=== PATIENT | male | born 1960 | race African-American/Black ===

== ENCOUNTER 2018-07-31 20:19 | Emergency (ER) | payer OTHER ==
[~2018-07-31] VITALS: Ht 182.9 cm; Wt 113.4 kg
[2018-07-31 21:30] LABS: ABSOLUTE NEUTROPHILS 4.1 thou/uL (1.4-8.2); EOSINOPHILS 1.1 % (0.0-3.0); HEMATOCRIT 29.2 % (42.0-52.0); HEMOGLOBIN 9.6 gm/dL (14.0-18.0); LYMPHOCYTES 11.3 % (24.0-44.0); MCH 28.4 pg (26.0-34.0); MCHC 32.8 g/dL (28.0-37.0); MCV 86.4 fL (80.0-100.0); MONOCYTES 10.7 % (1.0-8.0); PLATELET COUNT 214 thou/uL (150-400); POLYS 75.9 % (36.0-66.0); RBC 3.38 mil/uL (4.50-6.00); RDW 16.4 % (10.5-14.5); WBC 5.4 thou/uL (4.0-11.0)
[2018-07-31 21:36] LABS: CALCIUM 9.7 mg/dL (8.5-10.1); CREATININE 8.9 mg/dL (0.7-1.3)
[2018-07-31 21:42] LABS: ALBUMIN 2.8 g/dL (3.4-5.0); TOTAL BILIRUBIN 0.3 mg/dL (<0.1-1.0); TOTAL PROTEIN 6.7 g/dL (6.4-8.2)
[2018-07-31] MEDS ORDERED: DOXYCYCLINE 10100 MG PO (22:24)
[2018-07-31] MEDS ORDERED: ULTRAM 50MG TAB50 MG PO (22:24)
[2018-07-31] MEDS ORDERED: IBUPROFEN 600600 M1 PO (22:24)
[2018-07-31 23:01] VITALS: BP 170/84
== END 2018-07-31 23:10 | disposition home or self-care (01) ==
LOC: ER 20:19
PROVIDERS: Nurse Practitioner
DX: L02.612 Cutaneous abscess of left foot (principal); E11.621 Type 2 diabetes mellitus with foot ulcer

== ENCOUNTER 2018-08-12 06:56 | Inpatient (IN) | payer OTHER ==
[~2018-08-12] VITALS: Ht 182.9 cm; Wt 115.7 kg
[~2018-08-12 06:56] MED LIST: DOXYCYCLINE 10100 MG PO; IBUPROFEN 600600 M1 PO; ULTRAM 50MG TAB50 MG PO
[2018-08-12] MEDS ORDERED: IBUPROFEN 800800 M1 PO (12:25)
[2018-08-12] MEDS ORDERED: COUMADIN 1MG TAB1 M1 PO (12:26)
[2018-08-12] MEDS ORDERED: LISINOPRIL5 MG PO (12:26)
[2018-08-12] MEDS ORDERED: TRAMADOL 50 MG50 MG PO ×2 (12:27)
[2018-08-12] MEDS ORDERED: HYDRALAZINE 2525 MG PO (12:27)
[2018-08-12] MEDS ORDERED: DOXYCYCLINE 10100 MG PO (12:28)
[2018-08-12 14:28] LABS: HEMATOCRIT 28.4 % (42.0-52.0); HEMOGLOBIN 9.3 gm/dL (14.0-18.0); MCH 27.9 pg (26.0-34.0); MCHC 32.8 g/dL (28.0-37.0); PLATELET COUNT 272 thou/uL (150-400); RBC 3.34 mil/uL (4.50-6.00); RDW 16.3 % (10.5-14.5); WBC 10.9 thou/uL (4.0-11.0)
[2018-08-12 14:40] LABS: ABSOLUTE NEUTROPHILS 8.1 thou/uL (1.4-8.2); INR 1.6; PROTIME 17.1 Seconds (9.3-11.4)
[2018-08-12 14:41] LABS: ANISOCYTOSIS 1+
[2018-08-12 14:42] LABS: ALBUMIN 2.5 g/dL (3.4-5.0); CALCIUM 10.9 mg/dL (8.5-10.1); CREATININE 6.7 mg/dL (0.7-1.3); MAGNESIUM 1.9 mg/dL (1.8-2.4); POTASSIUM 4.2 mmol/L (3.5-5.1); TOTAL BILIRUBIN 0.4 mg/dL (<0.1-1.0)
[2018-08-12 16:00] VITALS: BP 178/97
--- NOTE | 2018-08-12 18:45 | NUR ---
PT ARRIVED TO ROOM DIRECT ADMISSION FROM WOUND CLINIC AT 11:35. ADMISSION ASSESSMENT COMPLETED. PT A&O,X4, ANXIETY NOTED. EXPRESSES CONCERNS ABOUT MRI, PROVIDER ORDERED PO MEDS TO BE GIVEN BEFORE. GIVEN ORDERED. PT C/O LEFT LEG PAIN, PAIN MEDS GIVEN ORDERED. LEFT TOE WOUND NOTED. ACHS, NO INSULIN COVERAGE NEEDED THIS EVENING. DIALYSIS PT, AZALEA FISTULA. HIGH FALL RISK PRECAUTIONS IN PLACE. CALL LIGHT WITHIN REACH. VSS. PT IN STABLE CONDITION. END OF SHIFT.
[2018-08-12 20:30] VITALS: BP 163/98
[2018-08-13] VITALS (8 sets, daily range): BP systolic 155–209; BP diastolic 78–103
[2018-08-13 05:09] LABS: HEMATOCRIT 27.4 % (42.0-52.0); HEMOGLOBIN 8.8 gm/dL (14.0-18.0); MCH 27.8 pg (26.0-34.0); MCHC 32.2 g/dL (28.0-37.0); MCV 86.5 fL (80.0-100.0); PLATELET COUNT 284 thou/uL (150-400); RBC 3.16 mil/uL (4.50-6.00); RDW 16.3 % (10.5-14.5); WBC 9.4 thou/uL (4.0-11.0)
[2018-08-13 05:18] LABS: ANION GAP 11 mmol/L (7-16); BUN 59 mg/dL (7-18); CALCIUM 10.5 mg/dL (8.5-10.1); CHLORIDE 102 mmol/L (98-107); CHOLESTEROL 105 mg/dL (<200); CO2 24 mmol/L (21-32); CREATININE 7.2 mg/dL (0.7-1.3); GLUCOSE 92 mg/dL (74-106); HDL CHOLESTEROL 33 mg/dL (>40); LDL CHOLESTEROL 64 mg/dL (<100); MAGNESIUM 1.8 mg/dL (1.8-2.4); POTASSIUM 4.3 mmol/L (3.5-5.1); SODIUM 137 mmol/L (136-145); TC:HDL 3.2 Ratio (Not establshd); TRIGLYCERIDE 44 mg/dL (<150); VLDL 9 mg/dL (<40)
[2018-08-13 05:21] LABS: SERUM ASSESSMENT Clear
--- NOTE | 2018-08-13 05:59 | NUR ---
PT WITH LLE WOUND. SUSANA. TRAMADOL GIVEN FOR PAIN. PT GETS UP USING WALKER. OLIGURIC. AFEBRILE. CALM THRO NIGHT.APPEARS DROWSY THIS AM. PLANS FOR DIALYSIS TODAY.
[2018-08-13 06:31] LABS: ABSOLUTE NEUTROPHILS 6.6 thou/uL (1.4-8.2)
[2018-08-13 06:32] LABS: ANISOCYTOSIS 1+; PLATELET ESTIMATE NORMAL
[2018-08-13 06:33] LABS: BURR CELLS FEW; POLYCHROMASIA 1+
--- NOTE | 2018-08-13 12:07 | NUR ---
Case opened to follow for dc planning. Fisher Oyster visited with the pt at bedside this morning. He is drowsy and was falling asleep during our conversation. The pt reports that he lives with his Swati in a first floor apt with no steps. He dialyzes at the [facility] on [address] MWF. He reports that he either drives himself or his takes him. He uses a rwalker for gait and has been going to the wound clinic here for the past few weeks. He was admitted directly from the clinic with lt foot diabetic ulcer. The pt is disabled and has medicare as his primary ins and [employer] secondary through his 's employer. He denies any previous hh services. Unable to discuss possible dc planning needs as the pt kept falling asleep. Procedure planned in IR today. Dc planning needs are uncertain at this time and if surgical intervention is indicated. Will follow along for possible HH, Infusion, SNF or rehab referrals if needed.
--- NOTE | 2018-08-13 15:41 | NUR ---
PT ARRIVED TO CV HOLDING FROM IR AT 1510. PT WAS VERY RESTLESS IN IR SO SHEATH NOT REMOVED. BP WAS HIGH. ON ARRIVAL TO CV IT WAS 164/88. HYDRALAZINE 20 MG GIVEN AT 1517. PT HAVING SPASMS RT LEG AND C/O RT LEG ITCHING. NOW GIVING BENADRYL 25 MG IV PER LORI VELIZ.
--- NOTE | 2018-08-13 16:49 | NUR ---
PT BACK FROM IR. DRESSING TO RIGHT GROIN CDI. SITE SOFT. PT IN DIALYSIS AT THIS TIME. PT CAN RESUME DIET. WILL CONT. TO MONITOR.
[2018-08-14 00:03] VITALS: BP 157/71
--- NOTE | 2018-08-14 04:28 | NUR ---
ASSUMED CARE AT 1900, ASSESSMENT COMPLETED. PT IN DIALYSIS AT START OF SHIFT, MAINTAINED POST-ANGIO PRECAUTIONS UNTIL 2014. PT C/O MODERATE/HIGH PAIN IN LEFT FOOT WELL RESTLESS LEG AND FEELING ANXIOUS. DENIES SOB OR NAUSEA. [facility]E [facility] DIALYSIS FINISHED UP. GIVEN TRAMADOL AND ATIVAN OVERNIGHT. HAD PT SIT IN CHAIR WHILE CHANGING BED SHEETS, PT REPORTED PAIN WORSE AFTER BEING UP AND MOVING AROUND. EDUCATED PT ABOUT CALLING FOR HELP IF HE NEEDS TO GET UP, MADE SURE BED ALARM WAS SET AND FREQ ROUNDS. NO OTHER CONCERNS, WILL CONTINUE TO MONITOR.
[2018-08-14 04:46] VITALS: BP 166/87
[2018-08-14 08:27] VITALS: BP 169/83
[2018-08-14 09:06] LABS: HEP B SURFACE Ab(ANTI-HBS Reactive (()); HEPATITIS B SURFACE AG Negative (Negative)
--- NOTE | 2018-08-14 09:42 | HC ---
[facility] [place] [address] CONSULTATION Name: ROWENA SOSA Room #: 426-P [facility] IN M.R.#: [id number] Admission: 08/12/18 ������������������ Attend Phys: Carlos Queen MD Discharge: ������������������ Date of : 62 Report #: [id number] THIS REPORT FOR: //name// CC: FAM unknown Carlos Queen NO PCP Greg Amador DATE OF SERVICE: 08/13/2018 INFECTIOUS DISEASE CONSULTATION HISTORY OF PRESENT ILLNESS: A 57-year-old man, with diabetes mellitus for some 20 years, on hemodialysis 3 times weekly through left arm AV fistula, is admitted from Dr. Greg Amador' office with left foot ulceration and MRI compatible with possible osteomyelitis, left fifth metatarsal, though technically, this was compromised by motion. PAST MEDICAL HISTORY: Diabetes mellitus. Previous right fifth toe amputation. End-stage renal disease, on hemodialysis 3 times weekly. Previous cerebrovascular accident. Heart attack in 2014. Coronary artery stenting. Dyslipidemia. Hypertension. Peripheral vascular disease. DRUG ALLERGIES: None listed. MEDICATIONS: The patient is currently on treatment with vancomycin being dosed at 500 mg post hemodialysis 3 times weekly after loading dose. The patient is also on lisinopril, hydralazine, docusate, insulin lispro, tramadol, p.r.n. glucose and glucagon, p.r.n. zolpidem, p.r.n. nitroglycerin and p.r.n. ondansetron. SOCIAL HISTORY: See H and P, old records. FAMILY HISTORY: See H and P, old records. REVIEW OF SYSTEMS: See H and P and as above. PHYSICAL EXAMINATION: GENERAL: Well-developed, chronically ill-appearing man. Afebrile since admission with following vital signs. VITAL SIGNS: Temperature 98.9, pulse 94, respirations 16, BP 157/84. Height 6 feet, weight 255 pounds. HEENMT: Pupils reactive. Mouth edentulous. NECK: Supple. LUNGS: Clear. HEART: S1, S2. No gallops. [facility] [address] [address] CONSULTATION Name: ROWENA SOSA Room #: 426-P ADM IN M.R.#: [id number] Admission: 08/12/18 ������������������ Attend Phys: Carlos Queen MD Discharge: ������������������ Date of : 62 Report #: [id number] ABDOMEN: Soft, no masses or megaly. EXTREMITIES: Left arm AV shunt. Status post remote amputation, right fifth toe. Ulceration of the distal left fifth metatarsal area. No peripheral pulses palpable. LABORATORY DATA: Sodium 135, BUN 59, creatinine 7.2, calcium 10.5, albumin 2.5 g/dL, CRP 103.2 ng/L. Protime 17.1. WBC 9.4, hemoglobin 8.8, platelets 284,000. Sedimentation rate pending. MICROBIOLOGY DATA: Previous cultures, left foot ulceration revealed Enterobacter cloacae sensitive to quinolones, meropenem, tetracycline and aminoglycosides. RADIOLOGY EVALUATION: X-ray of the foot revealed no significant abnormalities other than calcification of the arteries, obviously not normal. MRI of the foot revealed this to be a limited study due to the patient's motion, subtle T1 hypointensity along plantar surface, left fifth metatarsal head concerning early osteomyelitis. Ultrasound of lower extremities revealed evidence of peripheral vascular disease. ASSESSMENT: 1. Possible left fifth metatarsal osteomyelitis. 2. Peripheral vascular disease. 3. Remote amputation, right fifth toe. 4. Diabetes mellitus. 5. End-stage renal disease, on hemodialysis 3 times weekly. 6. Anemia of chronic disease. 7. Hypoalbuminemia. 8. Coronary artery disease, previous myocardial infarction. 9. Previous cerebrovascular accident. SUGGESTIONS: Recommend we will review MRI to assess whether we are dealing with osteomyelitis or not. The CRP is elevated and we need an explanation for that. I suspect the only source of infection is the left foot. Continue vancomycin. Since an Enterobacter is isolated previously, add meropenem 500 IV every 12 hours. Proceed with angiogram. Dr. Queen, thank you for requesting my suggestions. ��������������������������������������������� <ELECTRONICALLY SIGNED> ���������������������������������������� By: Jt Wood MD ��������������������������������������������� 08/14/18 0942 0930 1939 Jt Wood MD /nt
[2018-08-14 10:42] LABS: HEMATOCRIT 28.4 % (42.0-52.0); HEMOGLOBIN 9.2 gm/dL (14.0-18.0); MCH 27.8 pg (26.0-34.0); MCHC 32.3 g/dL (28.0-37.0); MCV 86.1 fL (80.0-100.0); RBC 3.3 mil/uL (4.50-6.00); RDW 16.3 % (10.5-14.5); WBC 10.7 thou/uL (4.0-11.0)
[2018-08-14 10:46] LABS: CALCIUM 9.9 mg/dL (8.5-10.1); POTASSIUM 4.4 mmol/L (3.5-5.1)
[2018-08-14 10:47] LABS: CREATININE 5.7 mg/dL (0.7-1.3)
[2018-08-14 10:49] LABS: INR 1.4; PROTIME 14.1 Seconds (9.3-11.4)
--- NOTE | 2018-08-14 11:08 | NUR ---
Assumed pt care at 7am.Pt in bed moaning for left foot pain rated 10/10.Pain med too soon to give.Dr Ruiz notified,he rounded on pt and order noted.Pain med given with sips of water and pt fell asleep few minutes after given med. Dr Davis here,order noted.Pt left for surgery per bed at 1100 after given updates to rn cardiac rehab.
[2018-08-14 19:44] VITALS: BP 169/82
[2018-08-14 22:15] LABS: URINE BILIRUBIN NEGATIVE (Negative); URINE BLOOD NEGATIVE (Negative); URINE CLARITY CLEAR; URINE COLOR YELLOW; URINE GLUCOSE-RANDOM* TRACE (Negative); URINE KETONES NEGATIVE (Negative); URINE LEUKOCYTES-REFLEX NEGATIVE (Negative); URINE NITRITE-REFLEX NEGATIVE (Negative); URINE PROTEIN (DIPSTICK) 3+ (Negative); URINE SPECIFIC GRAVITY 1.015 (1.005-1.035); URINE UROBILINOGEN 0.2 E.U./dl (0.2-1.0)
[2018-08-14 22:39] LABS: BACTERIA-REFLEX 1-9 Few /HPF (None Seen); CRYSTALS None Seen /LPF (None Seen); HYALINE CASTS 0-3 Few /LPF (None Seen); MUCUS 4-6 Moderate strn/LPF (None Seen); SQUAMOUS 0-3 Few /LPF (0-3); URINE RBC 0-2 Rare /HPF (0-2); URINE WBC-REFLEX 0-5 Rare /HPF (0-5)
[2018-08-15 00:06] VITALS: BP 164/71
--- NOTE | 2018-08-15 04:43 | NUR ---
ASSUMED CARE AT 1900, ASSESSMENT COMPLETED. PT REPORTED VERY LITTLE PAIN IN FOOT SINCE PARTIAL AMPUTATION; DRESSING TO FOOT IS C/D/I, NO SIGNS OF BLEEDING. DENIES SOB OR NAUSEA; ASKED TO WEAR O2 WHILE ASLEEP IT HELPED HIM SLEEP BETTER. BLOOD SUGAR STABLE, NO COVERAGE NEEDED. PULLED BOTH IV'S OUT WHILE ASLEEP, NEW IV STARTED IN RIGHT AC. PLAN FOR DIALYSIS TODAY. NO OTHER CONCERNS, WILL CONTINUE TO MONITOR.
[2018-08-15 05:59] VITALS: BP 159/77
--- NOTE | 2018-08-15 08:47 | HC ---
[facility] [address] CONSULTATION Name: ROWENA SOSA Room #: 426-P ADM IN M.R.#: [id number] Admission: 08/12/18 ������������������ Attend Phys: Carlos Queen MD Discharge: ������������������ Date of : 62 Report #: [id number] THIS REPORT FOR: //name// CC: FAM unknown Carlos Queen NO PCP Greg Amador DATE OF SERVICE: 08/13/2018 PERSONAL PHYSICIAN: Not on staff. CHIEF COMPLAINT: Left foot ulcer. HISTORY OF PRESENT ILLNESS: This is a 57-year-old black male who actually presented to my clinic two days ago for evaluation of a chronic ulcer on the left lateral foot. The patient was noted to have cellulitis at that time as well as possible abscess formation over the area of the fifth metatarsal head. The patient was admitted to the hospital that day for IV antibiotics and surgical evaluation. While in the clinic, it was noted the patient had a QuantaFlo screening exam that showed concern for severe peripheral arterial disease and the patient is currently awaiting an angiography for evaluation of this. The patient states the wound itself has been present for several weeks. The patient was actually seen in the Emergency Department on 07/31/2018. At that time, had an I and D of superficial abscess, was started on oral antibiotics. The patient was scheduled to see me in the office shortly thereafter; however, he missed that appointment. The patient once again then presented to my office yesterday for evaluation and was admitted to the hospital. The patient states he does have pain associated with the foot, which he describes as sharp, stabbing pain, worse with ambulation, better with elevation and rest. The patient denies radiation of the pain. PAST MEDICAL HISTORY: Significant for diabetes, end-stage renal disease, coronary artery disease with previous stenting, history of previous CVA, hypertension, hyperlipidemia. PAST SURGICAL HISTORY: The patient also had previous history of a right fifth toe amputation. CURRENT MEDICATIONS: Multiple, I reviewed the patient's medication list. DRUG ALLERGIES: None. SOCIAL HISTORY: The patient smokes cigarettes occasionally as well as smokes e-cigarettes. Drinks alcohol socially. Resides at home. [address] [address] CONSULTATION Name: ROWENA SOSA Room #: 426-P [facility] IN [facility]#: [id number] Admission: 08/12/18 ������������������ Attend Phys: Carlos Queen MD Discharge: ������������������ Date of : 62 Report #: [id number] FAMILY HISTORY: Not pertinent to current medical condition. REVIEW OF SYSTEMS: CONSTITUTIONAL: The patient denies fevers or chills. NEUROLOGIC: The patient denies numbness, tingling in arms or legs, but does complain of generalized neuropathy in his feet. EYES: No complaints. ENT: No complaints. CARDIAC: The patient denies chest pain, palpitations or peripheral edema. RESPIRATORY: The patient denies shortness breath, cough or wheezes. GASTROINTESTINAL: The patient denies nausea, vomiting or abdominal pain. GENITOURINARY: The patient denies urgency or frequency. MUSCULOSKELETAL: No complaints. SKIN: The patient has a chronic ulcer on the left fifth metatarsal head as well as a dry ulceration to the left second toe. PHYSICAL EXAMINATION: VITAL SIGNS: Temperature 36.5, pulse 104, respirations 18, blood pressure 157/71. GENERAL: This is an alert and oriented x3, pleasant black male who is in mild distress secondary to pain. HEENT: Normocephalic, atraumatic. Mucous membranes are dry. Pupils are round. Sclerae white. NECK: Supple, nontender, without JVD. LUNGS: Clear. HEART: Regular. ABDOMEN: Soft, otherwise nontender. EXTREMITIES: The patient moves all extremities without difficulty. The patient has an AV fistula in the left upper extremity. Distal pulses are intact on the upper extremities. Evaluation of lower extremities reveals faint dorsalis pedis pulses; however, the feet are warm. Evaluation of left foot reveals a chronic ulcer over the lateral aspect of the fifth metatarsal head, which is exquisitely tender. There is swelling noted around the area and some fluctuance. There is also small superficial abrasion to the left lateral fifth toe and a chronic appearing ulcer over the left second toe on the distal tip on the lateral aspect of the fifth metatarsal head. The ulceration has moderate amount of serosanguineous drainage with moderate odor. NEUROLOGIC: Cranial nerves 2-12 are grossly intact. Motor and sensory grossly intact. LABORATORY VALUES: White count 10.9, hemoglobin 9.3. Sed rate 61. Arterial Doppler shows concern for arterial disease, hence the pending angiogram. Electrolytes within normal limits. BUN 59, creatinine 7.2. C-reactive protein was 103. Albumin is 2.5. IMPRESSION: [facility] [address] [place] [address] CONSULTATION Name: ROWENA SOSA Room #: 426-P ADM IN M.R.#: [id number] Admission: 08/12/18 ������������������ Attend Phys: Carlos Queen MD Discharge: ������������������ Date of : 62 Report #: [id number] 1. Chronic ulcer, left lateral fifth metatarsal head, concern for underlying abscess and osteomyelitis. 2. Peripheral arterial disease. 3. End-stage renal disease, on hemodialysis. 4. Coronary artery disease, status post coronary artery stenting. 5. History of cerebrovascular accident. 6. Diabetes mellitus type 2. 7. Protein-calorie malnutrition - severe with an albumin of 2.5. PLAN: At this time, Podiatry has been consulted for I and D of the left fifth metatarsal ulceration and possible amputation of fifth ray amputation if MRI shows concern for underlying osteomyelitis. MRI is pending at this time. Angiography is scheduled for later this afternoon. I will continue to maximize the patient's oral supplementation of protein for healing as per his renal diet. We will continue all other medications including IV antibiotics. Local wound care will be started with Betadine at this point in time, pending the surgical evaluation and treatment. We will continue to follow the patient. I appreciate the ability to consult. ��������������������������������������������� <ELECTRONICALLY SIGNED> ���������������������������������������� By: Greg Amador MD ��������������������������������������������� 08/15/18 0847 0827 1943 Greg Amador MD /nt
[2018-08-15 11:21] LABS: HEMATOCRIT 31.1 % (42.0-52.0); MCH 27.7 pg (26.0-34.0); MCHC 32.3 g/dL (28.0-37.0); MCV 85.9 fL (80.0-100.0); RBC 3.62 mil/uL (4.50-6.00); RDW 16.5 % (10.5-14.5); WBC 9.2 thou/uL (4.0-11.0)
--- NOTE | 2018-08-15 11:37 | NUR ---
Assessment completed.vss.Pt c/o of left foot rated 8/10.2 lortab po given with partial relief.Dr Amador and Sara here,order noted.Wound vac placed to left foot today bu wound care nurse.Pt in room having hemodialysis.Will continue to monitor.
[2018-08-15 11:39] LABS: % SATURATION 13 % (20-39); IRON 18 ug/dL (65-175); TIBC 140 ug/dL (250-450)
[2018-08-15 11:47] LABS: ALBUMIN 2.4 g/dL (3.4-5.0); CALCIUM 10.4 mg/dL (8.5-10.1); CREATININE 7.1 mg/dL (0.7-1.3); POTASSIUM 4.6 mmol/L (3.5-5.1); TOTAL BILIRUBIN 0.5 mg/dL (<0.1-1.0); TOTAL PROTEIN 6.8 g/dL (6.4-8.2)
--- NOTE | 2018-08-15 13:49 | NUR ---
WOUND CARE CONSULT; ROUNDING TODAY WITH DR MANAS LEON. THE LEFT LAT TOES WERE AMPUTATED. A CLEAN WOUND BED WAS NOTED WITH NO S/S OF INFECTION. RECOMMENDATION; VAC THERAPY TO BEGIN TODAY. DISCUSSED WITH STAFF
--- NOTE | 2018-08-15 14:20 | NUR ---
PT IS INTERESTED IN [facility] FOR HH FOLLOW-UP. PT WILL HAVE A WOUND VAC AT HOME. FOLLOWING.
[2018-08-15 16:00] VITALS: BP 143/70
[2018-08-15 21:09] VITALS: BP 142/95
--- NOTE | 2018-08-16 04:04 | NUR ---
PT REQUESTED FOR AND RECEIVED HYDROCODNE AND AMBIEN AT .MEDS EFFECTIVE.BG AT HS STABLE,NO TX NEEDED.WOUND VAC IN PLACE ON HIS FOOT.PT ON 2L/NC PER PT'S REQUEST TO HELP HIM SLEEP.PT CONT ON IV ABX.DRSG ON HIS FOOT C/D/I.PT GOT A BED BATH FROM HIS AT .PT ABLE TO MAKE HIS NEEDS KNOWN.FALL PRECAUTIONS IN PLACE,CALL LIGHT WITHIN REACH.
[2018-08-16 05:11] VITALS: BP 184/89
[2018-08-16 08:38] VITALS: BP 158/82
--- NOTE | 2018-08-16 08:47 | NUR ---
ASSESMENT COMPLETED. VSS. A/O. PAIN MANAGED BY MEDS ORDERED. NO NOTED SOA. NO NV. PT RESTING IN BED. PT STATED NOT HAVIGN A BM SINCE SATURDAY. BED ALARM ON. WILL CONT. TO MONITOR.
[2018-08-16 16:40] VITALS: BP 163/86
--- NOTE | 2018-08-16 18:28 | NUR ---
MIRALAX AND MAG CITRATE GIVEN- WAITING FOR RESULTS. NO CHANGE SINCE AM ASSESMENT.
[2018-08-16 22:38] VITALS: BP 165/78
[2018-08-17 05:34] LABS: HEMATOCRIT 27.3 % (42.0-52.0); HEMOGLOBIN 8.8 gm/dL (14.0-18.0); MCH 27.9 pg (26.0-34.0); MCHC 32.4 g/dL (28.0-37.0); MCV 86.1 fL (80.0-100.0); RBC 3.17 mil/uL (4.50-6.00); RDW 16.1 % (10.5-14.5); WBC 7.3 thou/uL (4.0-11.0)
[2018-08-17 05:39] LABS: ALBUMIN 2.4 g/dL (3.4-5.0); PHOSPHORUS 5.6 mg/dL (2.5-4.9); POTASSIUM 4.6 mmol/L (3.5-5.1)
[2018-08-17 05:56] VITALS: BP 154/68
--- NOTE | 2018-08-17 06:01 | NUR ---
PT ALERT AND ORIENTED. SLIGHTLY FORGETFUL. S/P L 5TH TOE AMPUTATIOPN WITH WOUND VAC IN PLACE. NO S/SX OF REDNESS OR SWELLING ON THE ARE AROUND THE DRSG. PT GETS TO BSC WITH SBA. PAIN MANGED BY ORAL MEDS. PLACED ON 02/2L/NC FOR COMFORT THRO THE NIGHT. FALL PREC IN PLACE. WILL CONTINUE WITH POC TILL EOS.
[2018-08-17 07:37] VITALS: BP 152/84
--- NOTE | 2018-08-17 08:45 | NUR ---
PATIENT CARE WAS ASSUMED AT 0715.PATIENT IS ALERT AND ORIENTED X4.PATIENT IS EATING BREAKFAST ON THE SIDE OF THE BED.PATIENT HAS WOUND WOUND VAC HOOKED UP WITH PROTECTED WRAPPINGS.PATIENT STATES THAT FOOT IS TENDER WHEN TOUCH TO ROUGHLY, OTHER THATN THAT HE HAS NO COMPLAINS OF PAIN AT THIS TIME.PATIENT HAS IV SALINE LOCKED.CALL LIGHT, PHONE, AND PERSONAL BELONGINGS ARE IN PLACE.
[2018-08-17 16:25] VITALS: BP 147/85
[2018-08-17 19:32] VITALS: BP 148/81
--- NOTE | 2018-08-18 03:30 | NUR ---
ASSUMED PT CARE 1899. PT ALERT AND ORIENTED. REASSESSMENT COMPLETE. VSS. IV DRESSING C/D/I, NO SIGNS OF INFILTRATION. PT DENIES PAIN, DENIES N/V. PT CALL LIGHT AND PERSONAL BELONONGS WITHIN REACH. WILL CONTINUE POC UNTIL EOS.
[2018-08-18 04:05] VITALS: BP 164/78
[2018-08-18 05:59] LABS: HEMATOCRIT 27.3 % (42.0-52.0); HEMOGLOBIN 8.9 gm/dL (14.0-18.0); MCH 27.9 pg (26.0-34.0); MCHC 32.7 g/dL (28.0-37.0); MCV 85.3 fL (80.0-100.0); RBC 3.2 mil/uL (4.50-6.00); RDW 16.1 % (10.5-14.5); WBC 7.9 thou/uL (4.0-11.0)
[2018-08-18 06:18] LABS: ALBUMIN 2.2 g/dL (3.4-5.0); CALCIUM 9.7 mg/dL (8.5-10.1); PHOSPHORUS 5.2 mg/dL (2.5-4.9); POTASSIUM 4.9 mmol/L (3.5-5.1)
[2018-08-18 06:19] LABS: CREATININE 8.1 mg/dL (0.7-1.3)
[2018-08-18 08:00] VITALS: BP 160/74
--- NOTE | 2018-08-18 11:47 | NUR ---
ASSESMENT COMPLETED. VSS. A/O/VERY ANXIOUS. NO NOTED SOA. NO NV. PT WANTS TO STEP OF HIS ROOM FOR "FRESH AIR". PT DIALYZING AT THIS TIME. WILL CONT. TO MONITOR.
--- NOTE | 2018-08-18 12:27 | HC ---
[facility] [place] [address] CONSULTATION Name: ORWENA SOSA Room #: 426-P ADM IN M.R.#: [id number] Admission: 08/12/18 ������������������ Attend Phys: Carlos Queen MD Discharge: ������������������ Date of : 62 Report #: [id number] THIS REPORT FOR: //name// CC: FAM unknown Carlos Queen NO PCP Greg Amador DATE OF SERVICE: 08/12/2018 ATTENDING PHYSICIAN: Dr. Queen. REASON FOR CONSULTATION: End-stage renal disease. HISTORY OF PRESENT ILLNESS: This 57-year-old gentleman, chronic dialysis patient at [facility], has a worsening left foot infection, was admitted for IV antibiotics, and is in need of dialysis tomorrow. PAST MEDICAL HISTORY: He has coronary artery disease, had a previous coronary stent at [facility]. He has had a previous CVA with little in the way of residual. He is having ongoing left diabetic foot ulcer, which was debrided in the Emergency Room here a couple of weeks ago, but subsequently worsened. He saw the wound clinic today, Dr. Amador, who admitted him for IV antibiotics. Diabetes, end-stage renal disease, peripheral neuropathy, history of CVA, hypertension. HOME MEDICATIONS: Including Coumadin, lisinopril 5 mg daily, hydralazine 50 mg t.i.d., tramadol and he has doxycycline listed as well. FAMILY HISTORY: Strongly positive for diabetes as well as end-stage renal disease. SOCIAL HISTORY: He is a longstanding cigarette smoker, currently smoking e-cigarettes. Denies drugs or alcohol. REVIEW OF SYSTEMS: GENERAL: He has been feeling reasonably well. EYES: Vision reasonably good. ENT: Hearing okay, swallows okay. Denies mouth ulcers. ENDOCRINE: Positive for diabetes. RESPIRATORY: No shortness of air, pleuritic pain, hemoptysis, or cough. CARDIAC: No chest pain or palpitations. GASTROINTESTINAL: No nausea, vomiting or diarrhea. GENITOURINARY: No dysuria, hematuria or stones. NEUROLOGIC: He does have some numbness and tingling in his feet. [facility] [address] [place] [address] CONSULTATION Name: ROWENA SOSA Room #: 426-P [facility] IN ..#: [id number] Admission: 08/12/18 ������������������ Attend Phys: Carlos Queen MD Discharge: ������������������ Date of : 62 Report #: [id number] PHYSICAL EXAMINATION: GENERAL: This is a reasonably well-appearing gentleman, in no acute distress. SKIN: Unremarkable. SKELETAL: Rather obese. HEENT: Extraocular movements are full. Vision is intact. Hearing is intact. Mucous membranes moist. Tongue, buccal mucosa benign. NECK: Supple, no carotid bruits. CHEST: Clear to auscultation. HEART: Regular. ABDOMEN: Soft and nontender. EXTREMITIES: Show no edema. He has dressing over the left foot and the second toe apparently has a wound and some gangrene. ASSESSMENT AND PLAN: 1. End-stage renal disease, on dialysis. We will dialyze tomorrow. 2. Left diabetic foot wound. 3. Diabetes mellitus with neuropathy. 4. Hypertension. 5. Previous cerebrovascular accident with little residual. 6. Ongoing tobacco abuse. 7. Coronary artery disease, status post coronary artery stent. ��������������������������������������������� <ELECTRONICALLY SIGNED> ���������������������������������������� By: Joshua Puga MD ��������������������������������������������� 08/18/18 1227 1814 0949 Joshua Puga MD /nt
--- NOTE | 2018-08-18 13:12 | NUR ---
Assess due to pt with left foot wound with bone necrosis, s/p toe/metatarsal amputation and need for wound vac. Hx DM, and ESRD with need for dialysis. Wts are stable. Pt noted to have requested regular diet and physician has ordered. BG under good control. Low nutrition risk
[2018-08-18] MEDS ORDERED: MEROPENEM500 MG IV (14:10)
--- NOTE | 2018-08-18 16:05 | PATH ---
[facility] [address] [place] [address] PATHOLOGY RPT PROCEDURE Name: BALJIT SULLIVAN Room #: 426-P ADM IN M.R.#: [id number] ������������������ Admission: 08/12/18 ������������������ Date of : 62 Discharge: Report #: [id number] Path Case #: [id number] [facility] Accession Number: [id number] . 01 Material submitted: . PART A: foot - LEFT FOOT ULCER. Modifiers: left PART B: toe - LEFT FIFTH METATARSAL. Modifiers: left, fifth . 01 Clinical history: . Gangrene, osteomyelitis. . 02 Diagnosis: A. Left foot ulcer, debridement: - Gangrenous necrosis associated with ulceration and marked acute inflammation of the skin and subcutaneous tissue. . B. Toe, left fifth metatarsal, transmetatarsal amputation: - Marked acute inflammation extending into bone, compatible with acute and chronic osteomyelitis. - Bone at margins viable and unremarkable (separate fragments). . (IUV:mml; 08/18/2018) QLM/08/18/2018 . 02 Electronically signed: . Maureen Castorena MD, Pathologist NPI- [id number] . 01 Gross description: . A. Received in formalin labeled "Baljit Sullivan, left foot ulcer" is a portion of curry-white skin and underlying soft tissue measuring 3.2 x 2.7 x 1.5 cm. The skin surface displays a alvarado-curry ulcerated lesion measuring 2.3 x 2.1 x 1.5 cm, and extends into the underlying soft tissue. Fire Sprinkler Service Technician section is submitted in cassette A1. . B. Received in formalin labeled "Baljit Sullivan, left fifth metatarsal" is a toe amputation specimen, separate portion of detached skin and underlying soft tissue, and two separate portions of curry-white bone, measuring in aggregate 8.6 x 4.5 x 2.0 cm and ranging from 2.3-5.1 cm in greatest dimension. The specimen is not inked due to its fragmented nature. The main toe portion displays a toenail measuring 0.7 x 0.7 x 0.3 cm. An ulcerated lesion is present on the skin of this portion, measuring 1.1 x 1.1 x 0.2 cm. A second pink-curry area absent of skin is also identified measuring 1.2 x 0.8 x 0.1 cm. These areas are located 0.6 and 0.1 cm to the closest skin and soft tissue margins respectively. Upon sectioning, the lesion and area without skin abut but do not grossly involve the underlying bone, and are contiguous and edematous below the [address] [address] PATHOLOGY RPT PROCEDURE Name: BALJIT SULLIVAN Room #: 426-P ADM IN M.R.#: [id number] ������������������ Admission: 08/12/18 ������������������ Date of : 62 Discharge: Report #: [id number] Path Case #: [id number] skin surface. The separate portions of bone have smooth surgical margins, with one aspect displaying a convex cartilaginous covered articular surface. This aspect also displays a roughened defect in the bone measuring 0.9 x 0.9 x 0.4 cm. Fire Sprinkler Service Technician sections of the specimen is submitted as follows: B1 skin lesion to underlying bone (decalcified) B2 containers sales representative section of separate portion of skin B3-B4 containers sales representative sections of separate portions of bone (decalcified) ([facility]; 08/14/2018) SYC/SYC . 02 Pathologist provided ICD-10: I96, L08.9, M86.172, M86.672 . 02 CPT . 431282, 747224, 245095 Specimen Comment: A courtesy copy of this report has been sent to Specimen Comment: [phone], , . Specimen Comment: Report sent to Performed at: [address], [place] [id number] MD Iron Pulido MD Phone: [phone] Performed at: [address] [id number] MD Maureen Castorena MD Phone: [phone]
--- NOTE | 2018-08-18 16:48 | NUR ---
NOTIFIED MINA FROM [facility] THAT PT WILL TRANSFER TO 5N TODAY FOR AN ACUTE REHAB STAY. S/W PT'S BY PHONE TO ALERT OF THE NEW ROOM NUMBER 509 WELL. PT NEEDS TO INCREASE HIS MOBILITY BEFORE DISCHARGING HOME. PT'S BROTHER AT THE BEDSIDE. PT GOES TO [facility] ON .
--- NOTE | 2018-08-18 16:59 | NUR ---
MESSAGE LEFT WITH ANSWERING SERVICE TO CANCEL APPT WITH DR SCHNEIDER FOR TOMORROW SINCE HE WILL STILL BE INPT. THIS APPT WAS TO GET ESTABLISHED WITH A PCP.
[2018-08-18 17:17] VITALS: BP 171/82
--- NOTE | 2018-08-18 17:56 | NUR ---
WOUND CARE FOLLOW UP; ROUNDING TODAY WITH DR RAUSCH AND DHARA NELSON RN. WOUND BED HAS DECREASE NON VIABLE TISSUE BUT IS MACERATED. NO S/S OF INFECTION. RECOMMENDATION; D/C VERAFLOW SYSTEM AND USE NORMAL VAC SYSTEM. DISCUSSED WITH RN
--- NOTE | 2018-08-29 10:09 | HC ---
[facility] [place] [address] CONSULTATION Name: ROWENA SOSA Room #: 426-P [facility] IN ..#: [id number] Admission: 08/12/18 ������������������ Attend Phys: Carlos Queen MD Discharge: 08/18/18 ������������������ Date of : 62 Report #: [id number] THIS REPORT FOR: //name// CC: FAM unknown Carlos Queen NO PCP Greg Amador DATE OF SERVICE: 08/18/2018 HISTORY OF PRESENT ILLNESS: The patient is a 57-year-old -J[place] male with history of insulin-dependent diabetes mellitus, hypertension, end-stage renal disease, on hemodialysis, prior CVA, admitted with a left foot wound. He had a left fifth toe amputation with resection and left fifth metatarsal on 08/14/2018. He has an open wound. He has a wound VAC in place. It is noted that he will be allowed weightbearing as tolerated. Left foot has a wound VAC dorsal and lateral. We are seeing him in Rehabilitation Medicine consultation. PAST MEDICAL HISTORY: Includes insulin-dependent diabetes mellitus, hypertension, end-stage renal disease, on hemodialysis. He has a prior history of CVA. He was on chronic anticoagulation. He has had a right toe amputation. He has had a cardiac stent. MEDICATIONS: Please see the full medication listing. This includes vitamins, herbals and supplements per report. ALLERGIES: No known drug allergies. HABITS: Current every day smoker of e-cigarettes, has a 08-aoks-vuua history. No history of alcohol abuse. SOCIAL HISTORY: Lives in an apartment with his , no steps. Premorbid walker versus cane ambulator, was driving. Either he or his to drive him to dialysis. There is an involved brother that lives in the area. REVIEW OF SYSTEMS: No current complaints of chest pain, shortness of breath or abdominal discomfort. He does have some discomfort involving the left foot as expected. PHYSICAL EXAMINATION: GENERAL: A 57-year-old -Jamaican male, in no obvious distress. VITAL SIGNS: Last recorded temperature 98.2, pulse 99, respirations 18, blood pressure 160/74. NEUROLOGIC: He is alert, was sleeping and on dialysis, but was appropriate, follows basic commands. Facies are symmetric. He has functional range of motion of both upper extremities. Strength is grade 4-/5. DTRs are trace to 1. [facility] [address] [place] [address] CONSULTATION Name: ROWENA SOSA Room #: 426-P [facility] IN M.R.#: [id number] Admission: 08/12/18 ������������������ Attend Phys: Carlos Queen MD Discharge: 08/18/18 ������������������ Date of : 62 Report #: [id number] LOWER EXTREMITIES: Right lower extremity; no focal calf swelling, functional range of motion, strength is grade 4-/5. Left lower extremity does have the left foot, which is dressed laterally. No focal calf swelling. He has been min assist with supine to sit, sit to stand mod. He was able to take 1 foot mod assist step with a front-wheeled walker. ASSESSMENT: A 57-year-old -J[place]ican male with the following problem list: 1. Left foot diabetic wound/gangrene, status post left fifth metatarsal amputation. 2. Medical complexity with generalized debilitation. 3. Insulin-dependent diabetes mellitus. 4. End-stage renal disease, on hemodialysis. 5. Prior history of cerebrovascular accident with chronic Coumadin anticoagulation. 6. Hypertension. 7. Tobacco abuse. 8. Coronary artery disease with prior cardiac stenting. 9. Prior right toe amputation. PLAN: Continue with IV antibiotics and wound VAC, left foot. This is to be placed dorsal and lateral and per records, the patient will be allowed weightbearing as tolerated on left foot. He is a candidate for an acute in-hospital inpatient rehabilitation stay to maximize his functional independence. We can hopefully get him back to the home setting. He does have his there as well as his brother and we will need to maximize his family support and assistance back in the home setting post-rehabilitation. Complainer transferred to the acute inpatient rehab [facility] when medically cleared. ��������������������������������������������� <ELECTRONICALLY SIGNED> ���������������������������������������� By: Jared Serna MD ��������������������������������������������� 08/29/18 1009 1410 [id number] Jared Serna MD /[facility]
== END 2018-08-18 18:09 | DRG 239 ==
LOC: HYPER 06:56 → 4E 11:13 → HYPER 13:13 → 4E 08-18 18:09
PROVIDERS: Hospitalist; Internal Medicine Nephrology; Nurse Practitioner; Student in an Organized Health Care Education/Training Program; ADMIT Hospitalist
PROC: B4181ZZ Fluoroscopy of Bilateral Renal Arteries using Low Osmolar Contrast (ICD-10-PCS; principal; 2018-08-13)
PROC: B41D1ZZ Fluoroscopy of Aorta and Bilateral Lower Extremity Arteries using Low Osmolar Contrast (ICD-10-PCS; principal; 2018-08-13)
PROC: 5A1D70Z Performance of Urinary Filtration, Intermittent, Less than 6 Hours Per Day (ICD-10-PCS; principal; 2018-08-13)
PROC: 0Y6N0ZF Detachment at Left Foot, Partial 5th Ray, Open Approach (ICD-10-PCS; 2018-08-14)
PROC: 5A1D70Z Performance of Urinary Filtration, Intermittent, Less than 6 Hours Per Day (ICD-10-PCS; 2018-08-15)
PROC: 5A1D70Z Performance of Urinary Filtration, Intermittent, Less than 6 Hours Per Day (ICD-10-PCS; 2018-08-18)
DX: E11.52 Type 2 diabetes mellitus with diabetic peripheral angiopathy with gangrene (principal); E43 Unspecified severe protein-calorie malnutrition; N18.6 End stage renal disease; I12.0 Hypertensive chronic kidney disease with stage 5 chronic kidney disease or end stage renal disease; M86.8X7 Other osteomyelitis, ankle and foot; L03.116 Cellulitis of left lower limb; E11.69 Type 2 diabetes mellitus with other specified complication; F41.9 Anxiety disorder, unspecified; E66.9 Obesity, unspecified; E78.5 Hyperlipidemia, unspecified; E11.621 Type 2 diabetes mellitus with foot ulcer; L97.524 Non-pressure chronic ulcer of other part of left foot with necrosis of bone; D63.8 Anemia in other chronic diseases classified elsewhere; E88.09 Other disorders of plasma-protein metabolism, not elsewhere classified; F17.210 Nicotine dependence, cigarettes, uncomplicated; I25.10 Atherosclerotic heart disease of native coronary artery without angina pectoris; E11.22 Type 2 diabetes mellitus with diabetic chronic kidney disease; E11.42 Type 2 diabetes mellitus with diabetic polyneuropathy; Z99.2 Dependence on renal dialysis; Z83.3 Family history of diabetes mellitus; Z95.5 Presence of coronary angioplasty implant and graft; Z89.421 Acquired absence of other right toe(s); Z68.34 Body mass index [BMI] 34.0-34.9, adult; Z86.73 Personal history of transient ischemic attack (TIA), and cerebral infarction without residual deficits; Z79.84 Long term (current) use of oral hypoglycemic drugs
CPT/HCPCS: 10783; 32100; 50010; 50101; 50386; 50951; 53078; 56527; 57091; 57188; 57189; 62110; 62850; 70005

== ENCOUNTER 2018-08-18 15:21 | Inpatient (IN) | payer OTHER ==
[~2018-08-18] VITALS: Ht 182.9 cm; Wt 112.2 kg
--- NOTE | ~2018-08-18 | H ---
[facility] [place] [address] HISTORY AND PHYSICAL Name: ROWENA SOSA Room #: 514-P ADM IN M.R.#: [id number] Admission: 08/18/18 ������������������ Attend Phys: Jared Serna MD Discharge: ������������������ Date of : 62 Report #: [id number] THIS REPORT FOR: //name// CC: Jared Serna FAM physician/PCP FAM unknown DATE OF SERVICE: 08/18/2018 HISTORY OF PRESENT ILLNESS: This is a 57-year-old -[place] gentleman who was admitted to the hospital with a left foot wound. He underwent left fifth toe amputation with resection and left fifth metatarsal on 08/14/2018 by Podiatry, due to osteomyelitis and necrosis of the bone. He was followed by Wound Care and Infectious Disease. He is on IV antibiotics. He has end-stage renal disease, on hemodialysis, managed by Nephrology. The patient currently has a wound VAC to the left foot in place. Due to his decline in functional mobility and need for medical management, he is admitted to [address] [place] [address] for physical and occupational therapies. Today, the patient denies pain in his foot or numbness or tingling. He denies headache or dizziness. He denies cough, shortness of air or chest pain. He denies nausea, abdominal pain or constipation. He denies dysuria, urinary retention. He does still make urine, he says. His family and he report that at night he has trouble with legs "jumping around" and would like something for restless legs syndrome. PAST MEDICAL HISTORY: Insulin-dependent diabetes mellitus; end-stage renal disease, on hemodialysis; history of CVA, on chronic anticoagulation; history of a right toe amputation; cardiac stent; coronary artery disease; hypertension and hyperlipidemia. CODE STATUS: Full code. ALLERGIES: No known drug allergies. CURRENT MEDICATIONS: Hydralazine 50 mg q. 8 hours, MiraLax 17 grams twice a day, Colace 100 mg twice a day, folic acid 1 mg daily, Zofran 4 mg q.8 hours p.r.n., lisinopril 10 mg daily, Humalog sliding scale a.c. and at bedtime, Ativan 0.5 mg q.i.d. p.r.n., Ambien 5 mg at bedtime p.r.n., Braham two tablets q. 4 hours p.r.n., meropenem 500 mg IV twice a day and tramadol 50 mg q. 6 hours p.r.n. SOCIAL HABITS: The patient is . He lives in an apartment with his . He does have a very supportive daughter, who is here in the room at the time. 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 His also works full-time. There are zero stairs to enter the building or inside. He utilized no assistive device prior. He is independent for ADLs. provides most of the IADLs. He is right-handed dominant. Denies fall history. [address] [address] HISTORY AND PHYSICAL Name: ROWENA SOSA Room #: 514-P [facility] [place] IN M.R.#: [id number] Admission: 08/18/18 ������������������ Attend Phys: Jared Serna MD Discharge: ������������������ Date of : 62 Report #: [id number] HABITS: The patient has a 36-jetc-darr history. He is a current everyday E-cigarette smoker. No illicit drug use, no alcohol use. REVIEW OF SYSTEMS: Remainder of his 14-point review of systems is negative, except as listed in the HPI. PHYSICAL EXAMINATION: VITAL SIGNS: Blood pressure 172/95, pulse 97, temperature 97.7, respirations 16 and O2 sat 98% on room air. GENERAL: He is awake, alert. He is oriented x 3. He is in no acute distress. He is on room air. HEAD: Head is normocephalic. EYES: EOMs are intact. No icterus. ENT: No pharyngitis. No rhinorrhea. NECK: No lymphadenopathy. HEART: Regular rate and rhythm. S1, S2 are intact. CHEST: Lungs are diminished in the bases. No crackle, no wheeze. ABDOMEN: Obese. Bowel sounds positive. Soft, nontender and nondistended. GENITOURINARY: No CVA tenderness. EXTREMITIES: He has functional use of bilateral upper extremities. Upper extremity strength grossly 4-/5. Broadcast News Producer are equal, bilateral. No clonus or tremor. Left lower extremity dressing with wound VAC clean, dry and intact. He has no calf swelling bilaterally. Negative Homans sign. He is able to lift lower extremity to antigravity, sit to stand with mod assist, mod assist for one foot with a front-wheeled walker, max assist for lower body dressing and contact guard assist for bed mobility. PSYCHIATRIC: Pleasant affect. NEUROLOGIC: His speech is difficult to understand at times. He defers to his daughter and brother in the room for answers, but can provide most of his past medical history. LABORATORY DATA: From today shows sodium 137, potassium 4.8, BUN 35, creatinine 6.1 and glucose 115. WBC 6.6, hemoglobin 9.0 and platelets 340,000. Folic acid 3.8. Vitamin B12 at 940. ASSESSMENT: 1. Left foot diabetic ulcer with ischemia, status post left foot fifth toe amputation with resection of fifth metatarsal on 08/14/2018. 2. Medical complexity with generalized debilitation. 3. Insulin-dependent diabetes mellitus. 4. End-stage renal disease, on hemodialysis. 5. History of cerebrovascular accident, on chronic anticoagulation. 6. Hypertension. 7. Restless legs syndrome. 8. Coronary artery disease with previous stenting. [facility] [address] [address] HISTORY AND PHYSICAL Name: ROWENA SOSA Room #: 514-P [place] IN M.R.#: [id number] Admission: 08/18/18 ������������������ Attend Phys: Jared Serna MD Discharge: ������������������ Date of : 62 Report #: [id number] 9. Tobacco abuse. 10. History of right toe amputation. PLAN: The patient has been admitted to [address] [place], [place] [address] for physical and occupational therapies. He will have Infectious Disease, Podiatry and Wound Care along with Hospitalist Services to follow for acute medical management. He remains on IV meropenem per Infectious Disease. He will be on hemodialysis per Nephrology 3 times a week for his end-stage renal disease. We will clarify with Podiatry, who did his surgery, on his weightbearing status and order appropriate shoe/boot as recommended. He will have a team conference today for discharge planning needs. We will work with for FMLA paperwork. He has been cleared to resume Coumadin for further stroke prophylaxis; we will defer to Hospitalist Services for dosing. We will start Requip for restless legs syndrome at renal dosing and adjust as needed. Please see extensive orders. ��������������������������������������������� ���������������������������������������� By: ��������������������������������������������� 1417 1511 RAFI Salvador /nt
[~2018-08-18 15:21] MED LIST changes: +COUMADIN 1MG TAB1 M1 PO; +HYDRALAZINE 2525 MG PO; +IBUPROFEN 800800 M1 PO; +LISINOPRIL5 MG PO; +MEROPENEM500 MG IV; +TRAMADOL 50 MG50 MG PO
[2018-08-18 18:15] VITALS: BP 154/80
--- NOTE | 2018-08-18 19:52 | NUR ---
PT ADMITED TO ROOM 509 AT 1815. RECEIVED REPORT FROM 4E NURSE. PT HAD DIALYSIS TODAY HAD 2L FLUID OFF. CONTINUE TO ON MEROPENEM FOR CELLULITIS, IV ON RIGHT AC. HAS FISTULA ON RIGHT UPPER ARM. ALERT AND ORIENTED X4, ABLE TO MAKE HIS NEEDS KNOWN. ORIENTED PT TO THE UNIT. BS 138. PT ATE LUNCH. VSS TAKEN, ADMIT H & W ENTERED. FAXED MEDICATION LISTS TO PHARMACY. CONSULT PHYSICANS WERE CALLED TO NOTIFIED. GAVE REPORT TO NIGHT NURSE TO CONTINUE TO MONITOR TO COMPLETE ADMISSION.
[2018-08-18 22:29] VITALS: BP 154/80; BP 154/82
--- NOTE | 2018-08-19 01:11 | NUR ---
PT ADMITTED TO 5N THIS EVENING WITH A 5TH METATARSAL AMPUTATION. SURGICAL DSG DRY AND INTACT. NEURO CHECKS WNL. WOUND VAC RUNNING AND INTACT. ADMIT HX AND ASSESSMENT COMPLETED. CONSULTS CALLLED. CONSENTS SIGNED. SUPPORTIVE AT BEDSIDE. PRN SLEEP/PAIN MEDICATION WORKING WELL. PT HAS BEEN WEARING 2L NC AT THE HOSPITAL SINCE HE DOES NOT HAVE HIS CPAP HERE. PT MOVES AROUND THE BED CONSTANTLY AND FALL PRECAUTIONS IN PLACE. PT STATES THAT IT IS NORMAL FOR HIM TO BE A VERY ACTIVE SLEEPER. DIALYSIS ACCESS ON LEFT ARM WNL. SLEEPING WELL AT THIS TIME. WILL CONTINUE TO MONITOR FREQUENTLY. ACCU CHECK AT HS WNL.
[2018-08-19 06:27] LABS: HEMATOCRIT 27.1 % (42.0-52.0); MCH 28.4 pg (26.0-34.0); MCHC 33.2 g/dL (28.0-37.0); MCV 85.4 fL (80.0-100.0); RBC 3.17 mil/uL (4.50-6.00); RDW 15.9 % (10.5-14.5); WBC 6.6 thou/uL (4.0-11.0)
[2018-08-19 06:37] LABS: CALCIUM 9.6 mg/dL (8.5-10.1); POTASSIUM 4.8 mmol/L (3.5-5.1)
[2018-08-19 06:40] LABS: CREATININE 6.1 mg/dL (0.7-1.3)
[2018-08-19 07:30] VITALS: BP 172/95
--- NOTE | 2018-08-19 11:40 | NUR ---
cm visited with pt at bedside, intro to cm, hh and team meeting. pt a & o x 3 with forgetfulness. 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 100% independent before hospital. no stair. was driving, use cpap at home, and no home oxygen. would like electric scooter for home."/myke. will cont following as needed for dc needs.
[2018-08-19 11:47] LABS: FOLIC ACID 3.8 ng/mL (8.6-58.9)
--- NOTE | 2018-08-19 12:09 | NUR ---
WOUND CARE FOLLOW UP; ROUNDING TODAY WITH DR VETO RAUSCH AND DHARA NELSON BSN RN. THE DRESSING IS PATIENT TO THE LEFT LAT FOOT AND THE VAC IS FUNCTIONING AT 125 MMHG. RECOMMENDATIONS; NO CHANGES. DISCUSSED WITH STAFF
--- NOTE | 2018-08-19 13:01 | NUR ---
Assess due to pt with left foot wound and s/p toe amputation. Admitted on to rehab unit. Tolerating meals, BG controlled. ESRD with need for dialysis. Pt had previously requested a regular diet while on acute unit. Currently has renal diet order which is more appropriate given renal labs, elevated phos. Started on folic acid supplement for folate level 3.8. Wts highly variable 250-270 lb. Continue to trend wts and follow intake. Add protein supplement if intake <75%meals. Low nutrition risk
--- NOTE | 2018-08-19 13:37 | NUR ---
team meeting, recommendation : wound care team cont following, wound vac to foot left foot. per wound team malgorzata delver wound vac there today and was sent back since pt came to acute rehab, have auth already and possible will need wound vac [place]. on iv abx currently. correctional captain goes to [facility].
--- NOTE | 2018-08-19 19:45 | NUR ---
ASSUMED CARES AT 0700. PT ORIENTED TO PERSON AND PLACE, AGITATED/ANXIOUS AND IMPULSIVE. ATIVAN ADMINISTERED SCHEDULED. PT C/O OF RIGHT GROIN AND RLE PAIN, TRAMADOL ADMINISTERED ORDERED. DRESSING ON RIGHT 5TH METATARSAL REMAINS INTACT, RLE REMAINS NON-WEIGHT BEARING. DIALYSIS CATHETER ON LEFT UPPER ARM REMAINS INTACT, BRUIT AND THRILL PRESENT. PT HOME CPAP SETUP SO PT CAN USE IT TONIGHT. BP ELEVATED THIS AM, BP LOWERING MEDS ADMINISTERED. PT MOVED NEAR NURSE'S STATION R/T IMPULSIVITY, CALL LIGHT WITHIN REACH, FALL PRECAUTIONS IN PLACE. FREQUENT VISUAL CHECKS
[2018-08-19 20:02] VITALS: BP 179/92
--- NOTE | 2018-08-20 04:18 | NUR ---
Assumed pt care at 1900. Pt A/OX4.Woundvac in place Left foot;continuous suction @125mmHg.Dressing on right groin C/D/I. Pt wore the CPAP on for a few hours at beginning of the shift but then refused to have it back on. Has a dialysis fistula on LUE,thrill&bruit positive. Fall precautions in place. Up w/SBA. Will continue to monitor pt.
[2018-08-20 05:55] VITALS: BP 178/99
[2018-08-20 06:28] LABS: PROTIME 10.7 Seconds (9.3-11.4)
[2018-08-20 08:00] VITALS: BP 163/90
--- NOTE | 2018-08-20 08:32 | NUR ---
ORDER AND FACE SHEET SENT TO [facility] FOR HEEL SHOE.
--- NOTE | 2018-08-20 10:00 | NUR ---
cm visited with pt at bedside, discussed hh again " visiting nursing hh is fine if insurance covers it."/pt. spoke with therapy and going to reach out to bear of family training and equip for home. knee scooters not covered by insurance, check [employer] knee scoot[employer] to buy around 120 dollars, spoke with [facility] to rent scooter 30$ week or 100$ per month. better to rent if going to have it for short time, to buy 250$. referral to be sent to [facility]h. cm left message with pt bear on knee scooter vs having pt work with wheel chair level only with therapy. bedside nurse to follow up with id to see if can be changed to po ABX at time of dc. will cont following as needed for dc needs.
--- NOTE | 2018-08-20 11:44 | NUR ---
WOUND CARE FOLLOW UP; ROUNDING WITH DR VETO RAUSCH. WOUND VAC IN USE AT THIS TIME AND IS FUNCTIONING WELL ABOUT 350 CC OF DRAINAGE IN TWO DAYS. THE WOUND BED HAS LESS NON VIABLE TISSUE AND HAS GRANULATION BUDS PRESENT. RECOMMEDATION; CONTINUE VAC THERAPY. DISCUSSED WITH KEREN
--- NOTE | 2018-08-20 12:11 | NUR ---
PATIENT CARE WAS ASSUMED AT 0715.PATIENT IS ALERT AND ORIENTED X4.PATIENT IS ABLE TO AMBULATE SHORT DISTANCE USING WALKER AND GAIT BELT.PT HAS WOUND VAC ATTACHED TO LEFT FOOT.PATIENT HAS COMPLAINS OF SORENESS IN GROINING AREA, PAIN MEDS WERE GIVEN IN THE AM.PATIENT IS NON-WEIGHT BEARING ON LEFT FOOT.HAS DIALYSIS MON,WED, AND FRI.PATIENT USES CPAP AT NIGHT SOMETIMES OR 2L OF OXYGEN NASAL CANNULA.PT HAS CALL LIGHT,PHONE, AND PERSONAL BELONGINGS WITHIN REACH.
[2018-08-20 13:07] LABS: GLYCOHEMOGLOBIN (HGB A1C) 5.9 % (4.8-5.6)
[2018-08-20 19:35] VITALS: BP 173/99
[2018-08-20 21:00] VITALS: BP 148/78
--- NOTE | 2018-08-21 02:31 | NUR ---
assumed care at approx 1900 evening 08/20. pt lying in bed with head of bed elevated at change of shift visiting with spouse at bedside. pt alert and oriented x4, appropriate and cooperative. pt took hs meds with water tolerating well. pt refusing to wear cpap and states he prefers to wear 02 at bedtime. pt voiding per urinal. pt appears to be sleeping soundly however calls out sometimes talking in his sleep. bed alarm on and call light in reach. will continue to monitor.
[2018-08-21 05:47] VITALS: BP 132/74
[2018-08-21 07:46] VITALS: BP 157/97
--- NOTE | 2018-08-21 12:30 | NUR ---
cm called left message with bear rt dme needs for dcp. pt daughter at bedside asked "she wants to know when fmla paper work is done"/daughter and bear. information provided that dr is working on them and when ready she or pt will be notified. " ok thanks she at work but can call her"/daughter. pt going for dialysis today, will be out of room.
--- NOTE | 2018-08-21 14:43 | NUR ---
PT A&OX4, IV INTACT IN R AC. L FT WITH WOUND VAC ON AT 125. PT IN DIALYSIS AT THIS TIME. VSS. TOLERATING PO PAIN MEDS WELL. WILL CONT POC.
[2018-08-22] VITALS (7 sets, daily range): BP systolic 150–177; BP diastolic 71–101
--- NOTE | 2018-08-22 04:23 | NUR ---
ASSUMED PT CARE 1899. PT ALERT AND ORIENTED. REASSESMENT COMPLETE. VSS. IV DRESSINF C/D/I, NO SIGNS OF INFITLRATIN. PT DENIES PAIN AT THIS TIME. DENIES N/V. STARTED THE NIGHT WITH CPAP IN PLACE, PT REMOVED IT DURING SLEEP. REFUSED TO PUT IT BACK ON. APPLIED 2L VIA NC, FREQUENTLY ROUNDING ON PT AND REAPPLYING O2. PT ON CONTINOUS PULSE OX. PT CALL LIGHT AND PERSONAL BELONIGNS WITHIN REACH, WILL CONTINUE POC UNTIL EOS.
[2018-08-22 05:57] LABS: INR 1.1; PROTIME 11.3 Seconds (9.3-11.4)
--- NOTE | 2018-08-22 08:40 | NUR ---
cm tried call pt bear rt equip question from therapy on knee scooter vs wheel chair. " i got message but it is up to myke what he wants to use and not sure if i can lift wheel chair in and out of care for dialysis and i am one who is going to drive him"/bear. information that [facility] paperwork was giving to myke this am for her, filled out. "thank you just let me know when training is with therapy"/ bear. cm passed on information to physical therapy to discuss scooter vs wheel chair with pt. will cont following as needed for dc needs.
--- NOTE | 2018-08-22 12:11 | NUR ---
ASSUMED CARES AT 0700. PT AWAKE, A/O*4, ANXIOUS. C/O POOR SLEEP LAST NIGHT, WITH EPISODES OF ANXIETY AND HALLUCINATIONS. HOSPITALIST NOTIFIED AND PSYCHIATRIST CONSULTED, ATIVAN ON HOLD. BP ELEVATED, BP LOWERING MEDICATIONS ADMINISTERED PER ORDER. WOUND ON LEFT METATARSAL CLEANED AND WOUND VAC DISCONTINUED, TO START DAKIN'S WET TO DRY DRESSING CHANGE DAILY. PT REMAINS NON-WEIGHT BEARING ON LEFT LOWER EXTREMITY. PT HAD AN INCONTINENT/ SPILLED URINAL LAST NOC, BED SOAKING WET THIS AM REQUIRING TOTAL BED CHANGE. Q1H VISUAL CHECKS. CALL LIGHT WITHIN REACH. FALL PRECAUTIONS IN PLACE
[2018-08-23 00:53] VITALS: BP 137/74
--- NOTE | 2018-08-23 00:56 | NUR ---
assumed care at approx 1900 evening 08/22. pt sitting up in bed at change of shift moving himself around frequently, fidgeting, restless. pt continued to be restless before bedtime and stated he did not sleep well last night and did not want to take Ativan tonight because he was having some hallucinations last night and thinks that may have caused it. pt did take his regular hs meds. 02 sat 97% on room air but pt continued to think he needed to wear 02. pt said he would try and sleep in recliner and staff arranged linen in chair for pt. while pt was sitting in chair he shifted himself to end of chair and slipped out landing on floor. resp therapist outside of room and called DRUG ABUSE RESISTANCE EDUCATION OFFICER who assisted pt into bed. vss taken and stable. pt denied any pain stating he was fine. warehouse analyst, spouse, and ROUTER MACHINE OPERATOR stonecutter apprentice hand notified. post fall protocol done. pt agreed to wear cpap and since then has been sleeping soundly with sat monitor in place with sats 92% and greater. vss. emptied 500 cc yellow urine from urinal. bed alarm on and call light in reach. will continue to monitor.
[2018-08-23 05:55] LABS: INR 1.1; PROTIME 11.5 Seconds (9.3-11.4)
[2018-08-23 08:56] VITALS: BP 168/88
[2018-08-23 14:38] VITALS: BP 168/88
--- NOTE | 2018-08-23 19:58 | NUR ---
ASSUMED CARE OF PATIENT AT APPROXIMATELY 0715. PATIENT IS A&OX4 AND VITAL SIGNS ARE STABLE. PATIENT DENIED PAIN, WAS TAKEN TO DIALYSIS AT 0900 AND RETURNED TO THE FLOOR AT APPROXIMATELY 1330. PATIENT PARTIALLY PARTICIPATED IN THERAPIES THIS SHIFT DUE TO DIALYSIS SCHEDULE. PATIENT HAS IV IN RIGHT AC THAT IS PATENT AND WITHOUT COMPLICATIONS, FISTULA TO THE LEFT ARM WITH BRUIT AND TRILL NOTED. AMPUTATED 5TH METATARSAL AMPUTATION ON LLE DRESSING REMOVED AND SITE FOUND TO HAVE AREAS OF SLOUGH AND ESCAR, DRESSING REPLACED WITH WET-TO-DRY USING DAKINS SOLUTION, ABD, 4X4S, AND KIRLEX COVERED WITH YELLOW SOCK. PATIENT IS NON-WEIGHT BEARING ON LLE AND USES BOOT WHEN OUT OF BED. PATIENT TRANSFERS WITH 1 PERSON MINIMUM ASSISTANCE PIVOT USING GAIT BELT. PATIENT REPORTED TO HAVE FALLEN DURING PREVIOUS FRAME CLEANER. PATIENT IS IMPULSIVE AND FREQUENTLY MAKING ATTEMPTS TO GET UP FROM BED/CHAIR, TRANSFER, AND DESPITE FREQUENT EDUCATION ABOUT FALL PRECATIONS PATIENT WAS NON-COMPLIANT WITH FALL EQUIPTMENT AND PRECAUTIONS. PRIOR ARRANGEMENTS WERE MADE FOR THE PATIENT'S FAMILY MEMBERS TO HAVE A LIBERTARIAN IN THE HOSPITAL SO THAT PATIENT COULD ATTEND. PATIENT'S FAMILY MEMBERS WERE EDUCATED ABOUT NEED FOR ALARMS, SAFETY EQUIPTMENT, STAFF PERFORMING TRANSFERS AND THAT THE PATIENT'S DOOR NEEDED TO REMAIN OPEN SO THAT NURSES COULD SEE PATIENT. FAMILY MEMBERS WERE NON-COMPLIANT AND COMPLAINED THAT THE STAFF WERE "TREATING HIM LIKE A PRISONER". FAMILY MEMBERS TRANSFERED PATIENT TO WHEELCHAIR AND TOOK HIM TO EVENT WITHOUT NOTIFYING STAFF. FOLLOWING EVENT PATIENT WAS LEFT UNATTENDED IN THE EVENT ROOM, NO STAFF WAS NOTIFIED OF THE PATIENT BEING LEFT, PATIENT WAS FOUND BY STAFF (APPRIOXIMATELY 1815) TRYING TO PUSH HIMSELF BACK TO THE UNIT. WAS CALLED AND STATED THAT SHE WAS THE FAMILY MEMBER WHO WAS RESPONSIBLE FOR PATIENT AT LIBERTARIAN AND THAT SHE HAD LEFT HIM UNATTENDED. STATED THAT SHE WAS IN THE PARKING LOT AT TIME OF CALL (APPROXIMATELY 1830). DID NOT RETURN TO UNIT UNTIL APPROXIMATELY 1845. AND WERE BOTH EDUCATED FOR MORE THAN 30 MINUTES BY THIS NURSE ABOUT FALL PREVENTION, PATIENT'S RISK FOR FALLS, AND UNIT POLICIES INCLUDING FALL CONTRACT. FAMILY VERBALIZED UNDERSTANDING, BUT FREQUENTLY MADE EXCUSES OR VOICED FEELING THAT THEY WERE NOT NECESSARY. PATIENT SET OFF BED ALARM MULTIPLE TIMES WITHIN THE HOUR FOLLOWING EDUCATION. FALL PRECAUTIONS ARE CURRENTLY IN PLACE AND NURSING WILL CONITNUE TO MONITOR PATIENT.
[2018-08-23 20:25] VITALS: BP 127/83
--- NOTE | 2018-08-23 23:02 | NUR ---
ASSUMED CARE OF PT AT 1915. PT IS A&OX4. IS ON ROOM AIR, BUT USES 2L OF O2/ NC AT HS IN PLACE OF CPAP. PT STATED "I FEEL CLOSTOPHOBIC WITH THAT MASK ON". PT DOES REFUSES TO KEEP O2 ON ALSO. PT REFUSED ANXIETY MED, PT STATED "I DON'T TAKE THAT ANYMORE. THAT'S THE MEDICATION THAT CAUSED ME TO HALLUCINATE". PT WAS OBSERVED ATTEMPTING TO GET UP OUT OF BED EVEN AFTER BEING EDUCATED BY THE DAY NURSE KEREN PANTOJA. WHEN THE PT SAW ME WALKING TOWARDS ROOM THE PT SAT BACK DOWN ON BED. THIS NURSE RE-EDUCATED THE PT ABOUT IMPORTANCE OF SAFETY & WHY WE USE FALL PRECAUTIONS. THE PT STATED "I'M JUST NOT USE TO HAVING TO CALL SOMEONE TO HELP ME. I AM USE TO DOING THINGS ON MY OWN". THIS NURSE USED THERAPUETIC COMMUNICATION. PT STATED, "I UNDERSTAND". FALL PRECAUTIONS & HOURLY ROUNDING MAINTAINED. CALL LIGHT WITHIN REACH. PT ACROSS FROM NURSE STATION. LABS & VITALS REVIEWED. DRSG TO LEFT FOOT IN PLACE. WILL CONTINUE TO MONITOR.
[2018-08-24 06:11] LABS: INR 1.1
[2018-08-24 08:00] VITALS: BP 154/92
[2018-08-24 14:30] VITALS: BP 154/92
--- NOTE | 2018-08-24 17:52 | NUR ---
ASSUMED CARE OF PATIENT AT 0715. PATIENT IS A&OX3 AND VITAL SIGNS ARE STABLE. PATIENT HAS FREQUENT PERIODS OF RESTLESSNESS AND ANXIETY. PATIENT MADE SEVERAL ATTEMPTS TO SELF TRANSFER AND REQUIRED EDUCATION FROM NURSING ABOUT FALL PRECAUTIONS. PATIENT TRANSFERS WITH 1 PERSON STANDBY ASSISTANCE WITH GAIT BELT AND WALKER. PATIENT IS NON-WEIGHT BEARING ON THE LEFT FOOT AND PIVOT TRANSFERS TO THE BEDSIDE COMMODE. DRESSING TO THE LEFT FOOT CHANGED THIS SHIFT, SURGICAL SITE HAS AREAS OF ESCHAR AND SLOUGH MATERAL, DRESSING REPLACED WITH 4X4'S, DAKINS, ABD, KERLEX AND NON-SKID SOCK. PATIENT'S ANXIETY TREATED WITH ORAL MEDICAITONS, AND TAKES MEDICAITONS WHOLE WITH THIN LIQUIDS. FAMILY VISITED THROUGHOUT SHIFT. FALL PRECAUTIONS IN PLACE AND NURSING WILL CONTINUE TO MONITOR.
[2018-08-24 19:44] VITALS: BP 152/69
--- NOTE | 2018-08-25 01:30 | NUR ---
assumed care at approx 1900 evening 08/24. pt lying in bed with head of bed elevated at change of shift. pt restless in bed tossing and turning moving himself continually in bed sporadically moaning out. pt alert and oriented x4, redirected to turn to his back and/or side as pt on all fours in bed at times. pt given hs meds and pain med as ordered. pt continued to thrash around in bed raising legs impulsively. pt educated repeatedly about fall precautions and pt verbalized understanding. resp therapist assisted pt with cpap and continuous pulse oximeter. pt sleeping off and on mostly awake, taking mask off and disconnecting finger probe moving around in bed. pt did get up to bathroom wearing special shoe, using walker with 1 assist and pt had bm in toilet. bed alarm on, call light in reach. will continue to monitor.
[2018-08-25 05:18] VITALS: BP 161/82
[2018-08-25 05:59] LABS: HEMATOCRIT 24.2 % (42.0-52.0); HEMOGLOBIN 7.9 gm/dL (14.0-18.0); MCH 27.6 pg (26.0-34.0); MCHC 32.6 g/dL (28.0-37.0); MCV 84.6 fL (80.0-100.0); PLATELET COUNT 315 thou/uL (150-400); RBC 2.86 mil/uL (4.50-6.00); RDW 16.4 % (10.5-14.5); WBC 4.6 thou/uL (4.0-11.0)
[2018-08-25 06:09] LABS: INR 1.4; PROTIME 14.3 Seconds (9.3-11.4)
[2018-08-25 06:11] LABS: ALBUMIN 2.5 g/dL (3.4-5.0); CALCIUM 10.1 mg/dL (8.5-10.1); CREATININE 7.4 mg/dL (0.7-1.3); MAGNESIUM 2.1 mg/dL (1.8-2.4); PHOSPHORUS 5.2 mg/dL (2.5-4.9); POTASSIUM 5.1 mmol/L (3.5-5.1)
[2018-08-25 06:42] LABS: ANISOCYTOSIS 1+
[2018-08-25 06:43] LABS: PLATELET ESTIMATE NORMAL
[2018-08-25 07:50] VITALS: BP 163/89
--- NOTE | 2018-08-25 11:50 | NUR ---
ASSUMED CARE AT 0700. PATIENT IS ALERT AND ORIENTED X4. PATIENT CAMPBELL'S. OPERATIONS RESEARCH MANAGER ARE EQUAL. LUNGS ARE CLEAR. ABD IS SOFT WITH BSX4. PATIENT USES SCOOTER TO GET TO THE BATHROOM TO VOID. PATIENT IS ON HEMODIALYSIS //SAT. PATIENT HAS LEFT UPPER ARM FISTULA WITH GOOD THRILL AND BRUIT. PATIENT HAS S.L. IN HIS RIGHT AC. PATIENT CONTINUES ON ABT FOR LEFT FOOT WOUND. DRESSING CHANGED TO LEFT FOOT WITH DAKINS SOAKED 4X4, ABD, KERLIX. PATIENT TOLERATED PROCEDURE WELL. FALL AND SAFETY PROTOCOLS IN PLACE. DENIES PAIN AT THIS TIME. CONTINUES TO PROGRESS TOWARDS D/C GOALS. WILL CONTINUE TO MONITER.
[2018-08-25 15:00] VITALS: BP 156/75
[2018-08-25 19:52] VITALS: BP 150/74
--- NOTE | 2018-08-26 03:29 | NUR ---
ASSUMED CARE AT 1900, ASSESSMENT COMPLETED. PT VERY RESTLESS OVER NIGHT, MOANING AND GROANING, FLIPPING AROUND IN THE BED, AND NOT APPEARING TO SLEEP MUCH. GAVE PAIN PILL ONCE OVERNIGHT. FOOT DRESSING C/D/I. PT WEARING CPAP OVERNIGHT. RIGHT AC IV HAD COME COMPLETELY OUT DESPITE DRESSING IN PLACE; REMOVED AND STARTED A NEW IV IN RIGHT OUTER WRIST. TAPED SECURELY, AND REMINDED PT HIS IV ABX WOULD ONLY LAST 30 MINUTES AND TO LAY ON HIS BACK, BUT HE CONTINUED TO THRASH AROUND AND GET TUBING TRAPPED UNDER HIM. PT HAD ALSO THROWN HIS DENTURES ONTO A BLANKET ON THE CHAIR, OBTAINED A DENTURE CUP AND PUT DENTURES IN WATER AND SAT AT BEDSIDE. PLAN FOR DIALYSIS TODAY. NO OTHER CONCERNS, WILL CONTINUE TO MONITOR.
[2018-08-26 05:41] LABS: INR 1.9; PROTIME 20.1 Seconds (9.3-11.4)
--- NOTE | 2018-08-26 07:38 | NUR ---
ASSUMED CARE AT 0645. PATIENT IS ALERT AND ORIENTED X4. PATIENT CAMPBELL'S, SAFETY DEPOSIT SUPERVISOR ARE EQUAL. LUNGS ARE CLEAR. ABD IS SOFT WITH BSX4. PATIENT HAS S.L. IN HIS RIGHT WRIST. PATIENT HAS LEFT UPPER ARM FISTULA. PATIENT LEFT FOR DIALYSIS IN BED IN GOOD COINDITION. WILL CONTINUE TO MONITER WHEN HE RETURNS.
--- NOTE | 2018-08-26 10:46 | NUR ---
DISCHARGE PLANNING. ANTICIPATED DISCHARGE FOR TODAY. PATIENT DISCHARGE PLAN IS TO HOME WITH [facility]. CALL PLACED TO [facility] TO FOLLOW UP ON REFERRAL FAXED TO THEM LAST WEEK. SPOKE TO CONSTANTINE BRADLEY INTAKE. KIRK STATES [facility] IS ACCEPTING OF PATIENT AND WILL FACILITATE HOME [facility] SERVICES ONCE ORDERS RECEIVED. UNIT CM NOTIFIED. FOLLOWING TO ASSIST WITH DISCHARGE NEEDS.
--- NOTE | 2018-08-26 13:49 | NUR ---
team meeting, recommendation: [facility] is going to come and visit with pt today. per bedside nurse pt is here seeing pt now. cm spoke with pt rt scooter " ordered a knee scooter"/pt. pt is [facility] for surgery on in afternoon. had some family training over weekend. will cont following as needed for dcp. possible pt will have to dc saturday [facility] to [facility].
--- NOTE | 2018-08-27 05:44 | NUR ---
ASSUMED CARE OF PATIENT AT 1915. PATIENT IS A&OX4 AND IMPULSIVE, AND VITAL SIGNS ARE STABLE. PATIENT IV IN RIGHT FOREARM INFILTRATED AND WAS REPLACED WITH A 22g IN RIGHT HAND. FISTULA TO LEFT ARM INTACT WITH POSITIVE BRUIT AND THRILL. PATIENT AMBULATES USING SCOOTER. PAIN TREATED WITH ORAL MEDICAITONS. PATIENT USED CPAP UNTIL APPROXIOMATELY 0300. FALL PRECAUTIONS IN PLACE AND NURSING WILL CONTINUE TO MONITOR PATIENT.
[2018-08-27 06:37] LABS: INR 2.3; PROTIME 24.3 Seconds (9.3-11.4)
[2018-08-27 08:00] VITALS: BP 144/78
[2018-08-27] MEDS ORDERED: LORAZEPAM 0.50.5 M1 PO (10:32)
[2018-08-27] MEDS ORDERED: LORAZEPAM 1 MG T1 MG PO (10:32)
[2018-08-27] MEDS ORDERED: TRAZODONE HCL50 MG PO (10:33)
[2018-08-27] MEDS ORDERED: LOTENSIN20 MG PO (10:33)
[2018-08-27] MEDS ORDERED: MIRALAX17 GM PO (10:33)
[2018-08-27] MEDS ORDERED: FOLIC ACID1 MG PO (10:33)
[2018-08-27] MEDS ORDERED: COUMADIN 5 MG TA5 M1 PO (10:33)
[2018-08-27] MEDS ORDERED: REQUIP 0.25 M0.25 MG PO (10:33)
[2018-08-27] MEDS ORDERED: COLACE100 MG PO (10:33)
--- NOTE | 2018-08-27 12:38 | NUR ---
ASSUMED CARES AT 0700. PT AWAKE, ALERT AND ORIENTED*4. C/O MILD PAIN, 4/10 ON LEFT FOOT. VITALS REMAINED STABLE. WOUND ON LEFT FOOT, 5TH METATARSAL CLEANED AND DRESSING CHANGED. PT REMAINS NON-WEIGHT BEARING ON RLE. DIALYSIS FISTULA ON LEFT UPPER ARM REMAINS INTACT, THRILL AND BRUIT PRESENT. PIV ON RIGHT HAND REMAINS INTACT AND PATENT. PT UP WITH MIN ASSIST, GAITBELT AND KNEE SCOOTER. FALL PRECAUTIONS IN PLACE. CALL LIGHT WITHIN REACH. ROOM NEAR NURSE'S STATION. PT TO TRANSFER TO MED SURGICAL UNIT TODAY IN PREPARATION FOR WOUND DEBRIDEMENT TOMORROW. TO BE NPO AFTER MIDNIGHT TONIGHT.
[2018-08-27 14:49] VITALS: BP 151/94
--- NOTE | 2018-08-27 16:01 | NUR ---
Pt PARTICIPATED IN COMMUNITY REINTEGRATION ACTIVITY WITH OT ON 08/27/18. PLEASE REFER TO OT DOCUMENTATION
--- NOTE | 2018-08-29 10:09 | PLAN ---
[facility] [place] [address] REHAB UNIT PLAN OF CARE Name: ROWENA SOSA Room #: 514-P [facility] IN M.R.#: [id number] Admission: 08/18/18 ������������������ Attend Phys: Jared Serna MD Discharge: 08/27/18 ������������������ Date of : 62 Report #: [id number] THIS REPORT FOR: //name// CC: Jared Serna [facility] physician/PCP FAM unknown DATE OF SERVICE: 08/20/2018 PROGRESS NOTE/OVERALL PLAN OF CARE SUBJECTIVE: The patient is seen back today in followup. He is in no distress. His last recorded temperature 36.6, pulse 99, respirations 18, blood pressure 178/99. He is alert. Foot is dressed. He is continuing on the IV antibiotics. He is working in therapies with transfers, contact guard. He did do some mobility with the scooter yesterday, 350 feet. Podiatry saw him and orders have now been downgraded with nonweightbearing left lower extremity except for transfers, can wear a heel weightbearing shoe. ASSESSMENT: 1. Left foot diabetic ulcer with ischemia, status post left foot fifth toe amputation with resection of the fifth metatarsal on 08/14/2018. 2. Medical complexity with generalized debilitation. 3. Insulin-dependent diabetes mellitus. 4. End-stage renal disease, on hemodialysis. 5. History of cerebrovascular accident, on chronic anticoagulation. 6. Hypertension. 7. Restless legs syndrome. 8. Coronary artery disease with previous stenting. 9. Tobacco abuse. 10. History of prior right toe amputation. PLAN: The overall plan of care is based on the preadmission screen, post-admission physician evaluation and information garnered from therapy assessments. 1. Estimated length of stay is through next Saturday per our team conference which is 08/29/2018. 2. Medical prognosis is reasonably good. 3. Anticipated interventions includes the interdisciplinary acute inpatient rehabilitation program. 4. Anticipated functional outcomes would be for the patient to become modified independent with transfers, mobility, ADLs, so he can return back to his prior living situation. 5. Discharge destination would be back to the home setting where he lives in an apartment with his . 6. Expected therapy by discipline includes PT and OT 1 and 1-1/2 hours per day [address] [address] REHAB UNIT PLAN OF CARE Name: ROWENA SOSA Room #: 514-P DIS IN [facility].#: [id number] Admission: 08/18/18 ������������������ Attend Phys: Jared Serna MD Discharge: 08/27/18 ������������������ Date of : 62 Report #: [id number] each five days a week throughout the duration of the acute inpatient rehabilitation stay. ��������������������������������������������� <ELECTRONICALLY SIGNED> ���������������������������������������� By: Jared Serna MD ��������������������������������������������� 08/29/18 1009 1053 1816 Jared Serna MD /nt
--- NOTE | 2018-08-29 10:09 | H ---
[facility] [place] [address] HISTORY AND PHYSICAL Name: ROWENA SOSA Room #: 514-P [facility] IN M.R.#: [id number] Admission: 08/18/18 ������������������ Attend Phys: Jared Serna MD Discharge: 08/27/18 ������������������ Date of : 62 Report #: [id number] THIS REPORT FOR: //name// CC: Jared Serna [facility] physician/PCP FAM unknown DATE OF SERVICE: 08/18/2018 HISTORY AND PHYSICAL AND POST-ADMISSION PHYSICIAN EVALUATION HISTORY OF PRESENT ILLNESS: Please see my consult note dictation from yesterday. See the full admission note dictation. The patient has a history of insulin-dependent diabetes mellitus, hypertension, end-stage renal disease, admitted with a left foot wound. He had a left fifth toe amputation with resection of the left fifth metatarsal on 08/14/2018. He has a wound VAC in place. PAST MEDICAL HISTORY, ALLERGIES, HABITS, SOCIAL HISTORY: Please see the history and physical. MEDICATIONS: Please see the full medication listing. These include vitamins, herbals, and supplements per report. REVIEW OF SYSTEMS: No complaints of chest pain, shortness of breath or abdominal discomfort. PHYSICAL EXAMINATION: GENERAL: A 57-year-old -Bul[place] male who was in no distress. He was seen earlier. VITAL SIGNS: Temperature 36.5, pulse 97, respirations 16, blood pressure 172/95. Sleeping, but arouses. CHEST: Clear. CARDIOVASCULAR: Regular rate and rhythm. ABDOMEN: Bowel sounds positive, nontender. GENITOURINARY AND RECTAL: Deferred. EXTREMITIES: He has functional range of motion of both upper extremities. Strength is grade 4-/5. Right lower extremity, no focal calf swelling. Strength is grade 4-/5. Left lower extremity, the left foot is dressed laterally. No focal calf swelling. He has needed assistance with basic functional mobility skills. ASSESSMENT: A 57-year-old -Bulgarian male with the following problem list: 1. Left foot diabetic wound/gangrene status post left fifth metatarsal amputation. [address] [address] HISTORY AND PHYSICAL Name: ROWENA SOSA Room #: 514-P [facility] IN M.R.#: [id number] Admission: 08/18/18 ������������������ Attend Phys: Jared Serna MD Discharge: 08/27/18 ������������������ Date of : 62 Report #: [id number] 2. Medical complexity with generalized debilitation. 3. Insulin-dependent diabetes mellitus. 4. End-stage renal disease, on hemodialysis. 5. Prior history of cerebrovascular accident with chronic Coumadin anticoagulation. 6. Hypertension. 7. Tobacco abuse. 8. Coronary artery disease with prior cardiac stenting. 9. Prior right toe amputation. PLAN: From a postadmission physician evaluation perspective, there are no relevant changes since the preadmission screening. Please see the above review of prior and current medical and functional conditions and comorbidities. Please see the patient's current medical and functional conditions and comorbidities. As far as risk of complications, he does have the multiple medical comorbidities as noted above. Initial plan of care involves the interdisciplinary acute inpatient rehabilitation program with goal of maximizing his functional independence, so he can hopefully return back to his prior living situation. Measurable functional goals would be for him to become modified independent with transfers, mobility and ADLs. He is noted to be allowed weightbearing as tolerated. Wound Care will follow regarding the wound VAC. Prognosis is reasonably good with estimated length of stay probably 7-14 days pending progress. Potential barriers would include his multiple medical comorbidities and decreased functional status. The patient meets diagnostic criteria for an acute in-hospital inpatient rehabilitation stay. He meets the medical necessity criteria and we will have the multiple professional employer consultant physicians continue to follow. He does have the tolerance for therapies and has appropriate discharge goals back to the home setting. ��������������������������������������������� <ELECTRONICALLY SIGNED> ���������������������������������������� By: Jared Serna MD ��������������������������������������������� 08/29/18 1009 [id number] Jared Serna MD /[facility]
== END 2018-08-27 15:08 | disposition short-term general hospital (02) | DRG 638 ==
PROVIDERS: Nurse Practitioner; ADMIT Physical Medicine & Rehabilitation
PROC: 5A1D70Z Performance of Urinary Filtration, Intermittent, Less than 6 Hours Per Day (ICD-10-PCS; principal; 2018-08-21)
PROC: 5A1D70Z Performance of Urinary Filtration, Intermittent, Less than 6 Hours Per Day (ICD-10-PCS; 2018-08-23)
PROC: 5A1D70Z Performance of Urinary Filtration, Intermittent, Less than 6 Hours Per Day (ICD-10-PCS; 2018-08-26)
DX: E11.621 Type 2 diabetes mellitus with foot ulcer (principal); E11.52 Type 2 diabetes mellitus with diabetic peripheral angiopathy with gangrene; L97.529 Non-pressure chronic ulcer of other part of left foot with unspecified severity; R53.81 Other malaise; E11.22 Type 2 diabetes mellitus with diabetic chronic kidney disease; N18.6 End stage renal disease; I10 Essential (primary) hypertension; G25.81 Restless legs syndrome; I25.10 Atherosclerotic heart disease of native coronary artery without angina pectoris; R26.9 Unspecified abnormalities of gait and mobility; K59.00 Constipation, unspecified; G47.00 Insomnia, unspecified; F17.290 Nicotine dependence, other tobacco product, uncomplicated; F01.50 Vascular dementia, unspecified severity, without behavioral disturbance, psychotic disturbance, mood disturbance, and anxiety; F32.9 Major depressive disorder, single episode, unspecified; F41.1 Generalized anxiety disorder; I48.91 Unspecified atrial fibrillation; Z99.2 Dependence on renal dialysis; Z86.73 Personal history of transient ischemic attack (TIA), and cerebral infarction without residual deficits; Z79.01 Long term (current) use of anticoagulants; Z95.5 Presence of coronary angioplasty implant and graft; Z89.422 Acquired absence of other left toe(s)
CPT/HCPCS: 10112; 32100; 50010; 50101; 62110; 62850; 70005

== ENCOUNTER 2018-08-27 15:27 | Inpatient (IN) | payer OTHER ==
[~2018-08-27] VITALS: Ht 182.9 cm; Wt 111.6 kg
[~2018-08-27 15:27] MED LIST changes: +COLACE100 MG PO; +COUMADIN 5 MG TA5 M1 PO; +FOLIC ACID1 MG PO; +LORAZEPAM 0.50.5 M1 PO; +LORAZEPAM 1 MG T1 MG PO; +LOTENSIN20 MG PO; +MIRALAX17 GM PO; +REQUIP 0.25 M0.25 MG PO; +TRAZODONE HCL50 MG PO
[2018-08-27 15:52] VITALS: BP 177/91
[2018-08-27 21:24] VITALS: BP 162/89
[2018-08-28 05:41] VITALS: BP 147/49
[2018-08-28 05:43] LABS: HEMOGLOBIN 7.3 gm/dL (14.0-18.0); MCHC 33.1 g/dL (28.0-37.0); MCV 84.7 fL (80.0-100.0); PLATELET COUNT 300 thou/uL (150-400); RDW 16.1 % (10.5-14.5); WBC 4.7 thou/uL (4.0-11.0)
[2018-08-28 05:48] LABS: CALCIUM 9.7 mg/dL (8.5-10.1); CREATININE 7.4 mg/dL (0.7-1.3); MAGNESIUM 2.1 mg/dL (1.8-2.4)
[2018-08-28 05:56] LABS: POTASSIUM 5.5 mmol/L (3.5-5.1)
[2018-08-28 08:00] LABS: ABSOLUTE NEUTROPHILS 3.2 thou/uL (1.4-8.2); ANISOCYTOSIS 1+; NUCLEATED RBCS 1 /100WBC; OVALOCYTES 1+
[2018-08-28 08:01] LABS: SCHISTOCYTES FEW
[2018-08-28 11:33] LABS: CREATININE 4.1 mg/dL (0.7-1.3); POTASSIUM 4.2 mmol/L (3.5-5.1)
[2018-08-28 13:09] LABS: PROTIME 20.3 Seconds (9.3-11.4)
[2018-08-28 18:40] VITALS: BP 150/86
[2018-08-28 19:37] VITALS: BP 156/91
[2018-08-29 05:47] LABS: INR 1.9; PROTIME 19.9 Seconds (9.3-11.4)
[2018-08-29 08:00] VITALS: BP 137/88
[2018-08-29 13:31] VITALS: BP 137/88
[2018-08-29] MEDS ORDERED: LEVAQUIN 500 M500 M1 PO (13:37)
[2018-08-29] MEDS ORDERED: BANOPHEN25 M1 PO (13:37)
[2018-08-29] MEDS ORDERED: MELATONIN5 M1 PO (13:37)
[2018-08-29 15:12] VITALS: BP 135/78
--- NOTE | 2018-09-01 19:06 | PATH ---
[facility] [address] [place] [address] PATHOLOGY RPT PROCEDURE Name: BALJIT SOSA Room #: 460-P DIS IN M.R.#: [id number] ������������������ Admission: 08/27/18 ������������������ Date of : 62 Discharge: 08/29/18 Report #: [id number] Path Case #: [id number] [facility] Accession Number: [id number] . 01 Material submitted: . toe - 5TH METATARSAL BONE. Modifiers: fifth . 01 Clinical history: . Left foot wound. . 02 Diagnosis: Fifth metatarsal bone, debridement: - Acute inflammation, fibrinoid degeneration as well as fragments of reactive bone, history of left foot wound. (IUV/db; 09/01/2018) LBQ/09/01/2018 . 02 Electronically signed: . Maureen Castorena MD, Pathologist NPI- [id number] . 01 Gross description: . Received in formalin labeled "Nate, Baljit, fifth metatarsal bone" is a 2.0 x 0.6 x 0.3 cm aggregate of pink-curry bony tissue fragments. The specimen is submitted entirely in cassette A1 following decalcification. ([facility]; 08/28/2018) SYC/SYC . 02 Pathologist provided ICD-10: M86.172 . 02 CPT . 946616, [id number] Specimen Comment: A courtesy copy of this report has been sent to Specimen Comment: [phone], , . Specimen Comment: Report sent to ,DR STEELE / DR SCHULTZ Performed at: [address], [place] [id number] MD Iron Pulido MD Phone: [phone] Performed at: [address] [id number] MD Maureen Castorena MD Phone: [phone]
== END 2018-08-29 16:06 | disposition home health service (06) | DRG 629 ==
LOC: 4W 15:27 → ENTRNSPT 08-29 15:27 → EDTRNSPTSTS 08-29 15:28 → 4W 08-29 16:06
PROVIDERS: Anesthesiology; Nurse Practitioner; ADMIT Internal Medicine
PROC: 0QUP0KZ Supplement Left Metatarsal with Nonautologous Tissue Substitute, Open Approach (ICD-10-PCS; principal; 2018-08-28)
PROC: 5A1D70Z Performance of Urinary Filtration, Intermittent, Less than 6 Hours Per Day (ICD-10-PCS; principal; 2018-08-28)
PROC: 0QBP0ZZ Excision of Left Metatarsal, Open Approach (ICD-10-PCS; principal; 2018-08-28)
DX: E11.621 Type 2 diabetes mellitus with foot ulcer (principal); E11.52 Type 2 diabetes mellitus with diabetic peripheral angiopathy with gangrene; I12.0 Hypertensive chronic kidney disease with stage 5 chronic kidney disease or end stage renal disease; L97.529 Non-pressure chronic ulcer of other part of left foot with unspecified severity; N18.6 End stage renal disease; F17.210 Nicotine dependence, cigarettes, uncomplicated; K59.00 Constipation, unspecified; G47.00 Insomnia, unspecified; I25.10 Atherosclerotic heart disease of native coronary artery without angina pectoris; F41.1 Generalized anxiety disorder; E78.5 Hyperlipidemia, unspecified; G47.33 Obstructive sleep apnea (adult) (pediatric); Z99.2 Dependence on renal dialysis; Z95.5 Presence of coronary angioplasty implant and graft; Z86.73 Personal history of transient ischemic attack (TIA), and cerebral infarction without residual deficits; Z89.421 Acquired absence of other right toe(s); Z79.01 Long term (current) use of anticoagulants; Z71.6 Tobacco abuse counseling
CPT/HCPCS: 10047; 32100; 57256

== ENCOUNTER → 2018-09-04 | Outpatient (CLI) | payer OTHER ==
[~2018-09-04] MED LIST changes: +BANOPHEN25 M1 PO; +LEVAQUIN 500 M500 M1 PO; +MELATONIN5 M1 PO
== END ==
LOC: HYPER 06:48
DX: T81.89XD Other complications of procedures, not elsewhere classified, subsequent encounter (principal); E11.621 Type 2 diabetes mellitus with foot ulcer; L97.521 Non-pressure chronic ulcer of other part of left foot limited to breakdown of skin; R60.0 Localized edema; K21.9 Gastro-esophageal reflux disease without esophagitis; Z89.422 Acquired absence of other left toe(s); Z87.891 Personal history of nicotine dependence; Y83.8 Other surgical procedures as the cause of abnormal reaction of the patient, or of later complication, without mention of misadventure at the time of the procedure

== ENCOUNTER → 2018-09-10 | Outpatient (CLI) | payer OTHER | LOC: HYPER 09-09 06:54 | DX: T81.89XD Other complications of procedures, not elsewhere classified, subsequent encounter (principal); E11.621 Type 2 diabetes mellitus with foot ulcer; L97.521 Non-pressure chronic ulcer of other part of left foot limited to breakdown of skin; R60.0 Localized edema; K21.9 Gastro-esophageal reflux disease without esophagitis; Z87.891 Personal history of nicotine dependence; Z89.422 Acquired absence of other left toe(s); Y83.8 Other surgical procedures as the cause of abnormal reaction of the patient, or of later complication, without mention of misadventure at the time of the procedure ==

== ENCOUNTER → 2018-09-23 | Outpatient (CLI) | payer OTHER | LOC: HYPER 09-18 06:41 | DX: T81.89XD Other complications of procedures, not elsewhere classified, subsequent encounter (principal); E11.621 Type 2 diabetes mellitus with foot ulcer; L97.522 Non-pressure chronic ulcer of other part of left foot with fat layer exposed; K21.9 Gastro-esophageal reflux disease without esophagitis; R60.0 Localized edema; Z89.422 Acquired absence of other left toe(s); Z87.891 Personal history of nicotine dependence; Y83.8 Other surgical procedures as the cause of abnormal reaction of the patient, or of later complication, without mention of misadventure at the time of the procedure ==

== ENCOUNTER → 2018-09-30 | Outpatient (CLI) | payer OTHER | LOC: HYPER 06:34 | DX: T81.89XD Other complications of procedures, not elsewhere classified, subsequent encounter (principal); E11.621 Type 2 diabetes mellitus with foot ulcer; L97.522 Non-pressure chronic ulcer of other part of left foot with fat layer exposed; K21.9 Gastro-esophageal reflux disease without esophagitis; R60.0 Localized edema; Z89.422 Acquired absence of other left toe(s); Z87.891 Personal history of nicotine dependence; Y83.8 Other surgical procedures as the cause of abnormal reaction of the patient, or of later complication, without mention of misadventure at the time of the procedure ==

== ENCOUNTER → 2018-10-15 | Outpatient (CLI) | payer OTHER | LOC: HYPER 10-13 06:33 | DX: T81.89XD Other complications of procedures, not elsewhere classified, subsequent encounter (principal); E11.621 Type 2 diabetes mellitus with foot ulcer; L97.522 Non-pressure chronic ulcer of other part of left foot with fat layer exposed; K21.9 Gastro-esophageal reflux disease without esophagitis; R60.0 Localized edema; Z87.891 Personal history of nicotine dependence; Z89.422 Acquired absence of other left toe(s); Y83.8 Other surgical procedures as the cause of abnormal reaction of the patient, or of later complication, without mention of misadventure at the time of the procedure ==

== ENCOUNTER 2018-10-16 13:24 | Inpatient (IN) | payer OTHER ==
[~2018-10-16] VITALS: Ht 182.9 cm; Wt 115.7 kg
--- NOTE | ~2018-10-16 | HC ---
[facility] [place] [address] CONSULTATION Name: ROWENA SOSA Room #: 417-I ADM IN ..#: [id number] Admission: 10/16/18 ������������������ Attend Phys: Carlos Queen MD Discharge: ������������������ Date of : 62 Report #: [id number] THIS REPORT FOR: //name// CC: Roe Queen DATE OF SERVICE: 10/18/2018 REASON FOR CONSULTATION: Left foot gangrene. HISTORY OF PRESENT ILLNESS: The patient is a 57-year-old male who underwent a left fifth metatarsal amputation by "Dr. iBllings" on 08/14/2018. He was followed by Wound Care, his wound failed to heal, and he has been diagnosed with osteomyelitis. REVIEW OF SYSTEMS: NEUROLOGIC: Denies numbness or tingling. Denies history of peripheral neuropathy. MUSCULOSKELETAL: Reports a history of a right fifth metatarsal amputation. ALLERGIES: No known drug allergies. MEDICATIONS: The patient's MAR was reviewed. Please see the MAR. His home medications include hydralazine, tramadol, diphenhydramine, levofloxacin, melatonin. Lorazepam, warfarin, ropinirole, docusate sodium, polyethylene glycol, folic acid, hydrocodone, ondansetron. PAST MEDICAL HISTORY: Significant for end-stage renal disease, diabetes mellitus and hypertension. Significant peripheral vascular disease, obstructive sleep apnea, peripheral artery disease, restless leg syndrome, history of tobacco abuse. SOCIAL HISTORY: He ambulates with a cane due to the foot wound. Smokes E-cigarettes. Denies using alcohol. Lives at home with his . PAST SURGICAL HISTORY: Cardiac stents, fistula placement, right fifth metatarsal amputation and multiple surgeries on his left fifth metatarsal. LABORATORY DATA: Done on 10/17/2018 showed white blood cell count 5.7, hemoglobin 7.6, hematocrit 23.3, platelet count 238. INR is 2.7. Chemistry, BMP has not been done. PHYSICAL EXAMINATION: GENERAL: The patient is alert and oriented. He interacts appropriately. He is a well-developed, well-nourished male, in no acute distress. His is at his bedside. [address] [address] CONSULTATION Name: ROWENA SOSA Room #: 417-I ADM IN [facility].#: [id number] Admission: 10/16/18 ������������������ Attend Phys: Carlos Queen MD Discharge: ������������������ Date of : 62 Report #: [id number] EXTREMITIES: Examination of his left lower extremity shows nonhealing wound at the lateral side of the foot and extends to the base of the metatarsal area. There is no cellulitis. No pulses are noted. His sensation is intact to light touch throughout. EHL, FHL, dorsiflexion and plantar flexion are intact. RADIOGRAPHS: Radiographs of the foot done on 10/16/2018 were reviewed and interpreted by myself as well as the report was reviewed, which showed a mid fifth metatarsal amputation. 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 IMPRESSION AND PLAN: Left foot nonhealing wound with clinical evidence of osteomyelitis. I have reviewed the consultation notes by "Dr. Billings" as well as the other physicians and will await their recommendations regarding a proximal or distal procedure. I discussed this with the patient. We briefly discussed the risks, benefits, alternatives, complications of a below-knee amputation and the typical postoperative course. I will see him tomorrow morning and continue to follow. Thank you very much. Questions were encouraged and answered to the best of my ability. ��������������������������������������������� ���������������������������������������� By: ��������������������������������������������� 1002 1049 Claudia Schmitz MD /nt
--- NOTE | ~2018-10-16 | HC ---
[facility] [place] [address] CONSULTATION Name: ROWENA SOSA Room #: 417-I ADM IN M.R.#: [id number] Admission: 10/16/18 ������������������ Attend Phys: Carlos Queen MD Discharge: ������������������ Date of : 62 Report #: [id number] THIS REPORT FOR: //name// CC: Roe Queen DATE OF SERVICE: 10/17/2018 INFECTIOUS DISEASE CONSULTATION ATTENDING PHYSICIAN: Carlos Queen MD. REASON FOR CONSULTATION: Antibiotic management. HISTORY OF PRESENT ILLNESS: A 57-year-old -[place] man recently discharged from [facility] after ray amputation of left fifth toe and known peripheral vascular disease. He is admitted with a persistent wound on the left foot as well as ischemic changes on the fourth and ____ toes. PAST MEDICAL HISTORY: 1. Diabetes mellitus. 2. Hypertension. 3. Obstructive sleep apnea, on CPAP. 4. End-stage renal disease, on hemodialysis Saturday, Saturday and Saturday. 5. Significant peripheral vascular disease. 6. Tobacco abuse. 7. Previous myocardial infarction and cardiac stenting. DRUG ALLERGIES: None listed. MEDICATIONS: The patient received a loading dose of vancomycin yesterday and he is on Zosyn 3.375 grams IV every 12 hours, also on multivitamins, melatonin, hydralazine, lorazepam at bedtime, trazodone at bedtime, insulin lispro per sliding scale, p.r.n. glucose glucagon, p.r.n. hydrocodone, p.r.n. Tylenol, p.r.n. ondansetron. SOCIAL HISTORY: See H and P, old records. FAMILY HISTORY: See H and P, old records. REVIEW OF SYSTEMS: See H and P and as above. PHYSICAL EXAMINATION: GENERAL: Well-developed, overweight -[place] man, not toxic looking, afebrile. VITAL SIGNS: Temperature 97.5, pulse 89, respirations 18, BP 169/85, height [address] [address] CONSULTATION Name: ROWENA SOSA Room #: [address] [place] [address] [place] [facility].#: [id number] Admission: 10/16/18 ������������������ Attend Phys: Carlos Queen MD Discharge: ������������������ Date of : 62 Report #: [id number], weight 255 pounds. HEENMT: Within range. NECK: Supple. LUNGS: Clear. HEART: S1, S2. ABDOMEN: Soft, no masses or megaly. GENITALIA AND RECTAL: Deferred. EXTREMITIES: Reveal no palpable pulses in the left foot. There is an open wound over the ray amputation of the left fifth metatarsal was done and there is no granulation tissue whatsoever and the wound appears ischemic. He also had developed ischemic changes of the left fourth and fifth toes. LABORATORY DATA: BUN 56, creatinine 7.8, glucose 110. Phosphorus 5.5, albumin 2.4 g/dL, CRP 85.1 mg per liter. Protime 28.1 seconds. WBC 5.7, hemoglobin 7.6, platelets 238,000. ESR 80 mm per hour. MICROBIOLOGY DATA: Blood cultures were obtained, they are pending at the time of this dictation. RADIOLOGY EVALUATION: X-ray of the foot revealed obvious osteomyelitis and vascular calcification as well as soft tissue wound on the left foot. No foreign bodies seen. ASSESSMENT: 1. Significant peripheral vascular disease with ischemic left foot wound and necrotic fourth and fifth toes. 2. Diabetes mellitus. 3. Renal failure on hemodialysis. SUGGESTIONS: Recommend continue Zosyn, though this is beyond antibiotic treatment. What the patient actually I believe might need is BK amputation. We will discuss with hospitalist and Dr. Amador to see if we are all on the same page. Dr. Amador and Dr. Queen, thank you for requesting my suggestion. ��������������������������������������������� ���������������������������������������� By: ��������������������������������������������� 1000 1622 Jt Wood MD /nt
--- NOTE | ~2018-10-16 | HC ---
[facility] [place] [address] CONSULTATION Name: ROWENA SOSA Room #: 417-I ADM IN .R.#: [id number] Admission: 10/16/18 ������������������ Attend Phys: Carlos Queen MD Discharge: ������������������ Date of : 62 Report #: [id number] THIS REPORT FOR: //name// CC: Roe Queen REASON FOR PRESENTATION: Wound on the left lower extremity. HISTORY OF PRESENT ILLNESS: A 57-year-old with past medical history of diabetes mellitus; hypertension; peripheral vascular disease; maintained on dialysis every Saturday, Saturday, and Saturday with another group at another facility. We have evaluated the patient back in July. He has ongoing left foot infection. He was initially treated with appropriate antibiotic. He represented yesterday because of worsening of his wounds. He was seen by the wound care and it was recommended that the patient get admitted for further evaluation and management. He denies any fever or chills. He has been maintained on dialysis for the last year. His end-stage renal disease is due to diabetes mellitus. PAST MEDICAL HISTORY: 1. End-stage renal disease, maintained on hemodialysis. 2. Diabetes mellitus. 3. Hypertension. 4. Coronary artery disease. 5. Diabetic foot. 6. Peripheral vascular disease. MEDICATIONS: 1. Levofloxacin. 2. Trazodone. 3. Benazepril. 4. Warfarin. 5. Folic acid. PAST SURGICAL HISTORY: 1. Multiple debridements and wound VAC of his foot issues. 2. Coronary artery stent. REVIEW OF SYSTEMS: GENERAL: No fever or chills. CARDIOVASCULAR: No chest pain or palpitation. PULMONARY: No cough or hemoptysis. GASTROINTESTINAL: No nausea or vomiting. MUSCULOSKELETAL: As per the history of present illness. ALLERGIES: None. FAMILY HISTORY: Very strong family history of diabetes mellitus and [facility] [address] [place] [address] CONSULTATION Name: ROWENA SOSA Room #: 417-I [facility] IN [facility]#: [id number] Admission: 10/16/18 ������������������ Attend Phys: Carlos Queen MD Discharge: ������������������ Date of : 62 Report #: [id number] hypertension. PHYSICAL EXAMINATION: VITAL SIGNS: Temperature 36.7, blood pressure is 174/59. HEAD AND NECK: No jugular venous distention. CHEST: No crackles. CARDIOVASCULAR: No rub detected. ABDOMEN: Soft, nontender. LOWER EXTREMITIES: +1 edema. Dressing applied over his left lower extremity. LABORATORY DATA: Reviewed. Hemoglobin is 7.6. ESR is 80. Sodium is 139, potassium is 5, BUN is 56, creatinine is 7.8. Phosphorus is 5.5. C-reactive protein is elevated at 85.1. ASSESSMENT, IMPRESSION AND PLAN: 1. End-stage renal disease. 2. Left diabetic foot. 3. History of osteomyelitis. 4. Diabetes mellitus. 5. Hypertension. 6. Coronary artery disease. 7. Cerebrovascular accident. 8. We will arrange for the patient to have his usual hemodialysis. 9. Wound care. 10. Iron studies. 11. Appropriate antibiotic. 12. Resume his blood pressure and blood sugar medication. We will continue to follow along. ��������������������������������������������� ���������������������������������������� By: ��������������������������������������������� 0734 0749 Homer Bull MD /nt
[2018-10-16 15:52] LABS: HEMATOCRIT 25.4 % (42.0-52.0); MCH 27.9 pg (26.0-34.0); MCHC 31.6 g/dL (28.0-37.0); MCV 88.3 fL (80.0-100.0); RBC 2.88 mil/uL (4.50-6.00); WBC 5.6 thou/uL (4.0-11.0)
[2018-10-16 15:58] VITALS: BP 170/105
[2018-10-16 15:58] LABS: CALCIUM 9.9 mg/dL (8.5-10.1); CREATININE 7.3 mg/dL (0.7-1.3); POTASSIUM 4.6 mmol/L (3.5-5.1)
[2018-10-16 16:03] LABS: ALBUMIN 2.4 g/dL (3.4-5.0); PHOSPHORUS 5.6 mg/dL (2.5-4.9)
--- NOTE | 2018-10-16 18:13 | NUR ---
Pt was direct admit approx 1500. Pt was at wound clinic, went home, and then to unit. Admission completed. Pt has diabetic ulcer on left foot. Pictures taken and in chart. Pt unable to recall home medications. Pt's will bring home med list in the am. Pt has dialysis MWF. Called infectious disease doctor and obtained orders for antibiotics. Call light within reach. Will continue to monitor.
[2018-10-16 19:06] VITALS: BP 158/88
[2018-10-17 03:48] VITALS: BP 174/59
[2018-10-17 05:47] LABS: HEMATOCRIT 23.3 % (42.0-52.0); HEMOGLOBIN 7.6 gm/dL (14.0-18.0); MCH 27.9 pg (26.0-34.0); MCHC 32.4 g/dL (28.0-37.0); MCV 86.3 fL (80.0-100.0); RBC 2.7 mil/uL (4.50-6.00); RDW 17.7 % (10.5-14.5); WBC 5.7 thou/uL (4.0-11.0)
--- NOTE | 2018-10-17 05:51 | NUR ---
PATIENT ALERT AND ORIENTED X4. DENIES PAIN. REFUSED DRESSING CHANGE ON L FOOT. SLEPT MOST OF NIGHT.
[2018-10-17 05:56] LABS: INR 2.7; PROTIME 28.1 Seconds (9.3-11.4)
[2018-10-17 06:09] LABS: ALBUMIN 2.4 g/dL (3.4-5.0); CALCIUM 9.6 mg/dL (8.5-10.1); CREATININE 7.8 mg/dL (0.7-1.3); PHOSPHORUS 5.5 mg/dL (2.5-4.9)
[2018-10-17 07:25] VITALS: BP 169/85
--- NOTE | 2018-10-17 09:14 | NUR ---
ORDERS RECEIVED FOR EVAL AND TREAT. OBSERVED Pt AMBULATING IN ROOM WITH CANE AND HEEL BEARING SHOE WITHOUT DIFFICULTY. SPOKE WITH Pt WHO STATES HE NOT HAVING ANY DIFFICULTY WITH HIS MOBILITY AND DECLINING A FORMAL P.T. EVAL. Pt APPEARS SAFE FOR HOME WHEN MEDICALLY CLEAR
--- NOTE | 2018-10-17 12:35 | NUR ---
Pt seen for initial high risk per diagnosis screening. Admitted w/ L diabetic foot wound w/ 3rd/4th toe eschar/gangrene. PMH includes DM, ESRD on HD, PAD, diabetic foot ulcer, HTN, and hx of L 5th toe amputation back in 07/2018. Pt seen on dialysis today for interview. No wt change, wt stable at 255# between July and present September admits. Eating very well; 100% dinner last night. Pt reports good, stable po intake. Educated strongly on protein importance w/ wounds/healing process. Pt likes his meat, eggs, etc. Recommended 1-2 per meal. Offered numerous supplements like German, Beneprotein, etc. but pt refused all - voicing zero interest or dislike of taste. Agrees to keep up with strong po protein. BGs staying well controlled at 98-125 x 2 days - chau for wounds. Phos H at 5.5 - not currently on phosphate binders. He declined any renal diet ed/reinforcement. D/t very adequate PO and protein awareness, pt now considered low nutrition risk.
[2018-10-17 15:00] VITALS: BP 179/96
--- NOTE | 2018-10-17 15:42 | NUR ---
ASSESSMENT-PT LIVES IN AN APT WITH HIS . PT SAYS HE USES A SCOOTER TO GET AROUND OR A CANE. PT GOES TO [facility]. HE DRIVES HIMSELF, TRANSPORTS OR HE GETS A RIDE. PT IS ON SERVICE WITH [facility] FOR [facility] CARE [facility]. HIS WORKS. HE HAS A BROTHER THAT IS SUPPORTIVE WELL. FOLLOWING TO ASSIST WITH DC PLANNING.
--- NOTE | 2018-10-17 19:51 | NUR ---
ASSUMED CARE OF PATIENT AT 0715, PATIENT ALERT AND ORIENTED X 4. PAYIEN UP WITH SBA. LEFT FOOT WOUND, DRESSING CHANGED BY THE DOCTOR/PODIARTY. PATIENT HAD DIALYSIS TODAY 3 LITERS OFF. PATIENT WANTED TO DISCHARGE TO HOME, BUT DR PRITCHETT STATES WILL DISCHARGE TOMORROW, AND START PO ANTIBIOTICS. PATIENT REFUSED ZOSYN DOSE THIS AFTERNOON. PATIENT C/O PAIN WITH LEFT FOOT, HYDROCODONE 1 TABLET GIVEN. WILL CONTINUE TO MONITOR.
[2018-10-17 23:10] VITALS: BP 135/74
--- NOTE | 2018-10-18 03:14 | NUR ---
ASSUMED PT CARE 1899. PT ALERT AND ORIENTED. REASSESSENT COMPLETE. VSS. PT DC'D IV. DENIES N/V. REPORTS PAIN, SEE EMAR. BRUIT AND THRILL PRESENT IN FISTULA. WOUND WRAP C/D/I. CALL LIGHT WITHIN REACH, WILL CONTINUE POC UNTIL EOS.
[2018-10-18 04:50] VITALS: BP 167/80
[2018-10-18 06:21] LABS: % SATURATION 14 % (20-39); IRON 24 ug/dL (65-175); TIBC 168 ug/dL (250-450)
[2018-10-18 08:23] VITALS: BP 152/87
[2018-10-18] MEDS ORDERED: LEVAQUIN 500 M500 M1 PO ×2 (12:45)
[2018-10-18] MEDS ORDERED: TRAZODONE HCL50 MG PO ×2 (12:46)
[2018-10-18] MEDS ORDERED: LORAZEPAM 1 MG T1 MG PO ×2 (12:47)
[2018-10-18] MEDS ORDERED: MELATONIN5 M1 PO ×2 (12:47)
[2018-10-18 13:15] VITALS: BP 152/87
--- NOTE | 2018-10-18 13:45 | NUR ---
ASSESMENT COMPLETED. VSS. A/O. PAIN MANAGED BY MEDS ORDERED. NO NOTED SOA. NO NV. DRESSING CHANGED ORDERED. DC INSTRUCTIONS GIVEN TO PT AND BOTH VERBALIZED UNDERSTANDING. PT TO DC HOME WITH SELF CARE. PLAN FOR PT TO RETURN NEXT WEEK FOR SURGERY.
--- NOTE | 2018-10-20 08:03 | HC ---
[facility] [address] CONSULTATION Name: ROWENA SOSA Room #: 417-I [facility] IN ..#: [id number] Admission: 10/16/18 ������������������ Attend Phys: Carlos Queen MD Discharge: 10/18/18 ������������������ Date of : 62 Report #: [id number] THIS REPORT FOR: //name// CC: Roe Queen DATE OF SERVICE: 10/16/2018 CHIEF COMPLAINT: Diabetic foot ulceration. HISTORY OF PRESENT ILLNESS: This is a 57-year-old male patient with a history of diabetes mellitus and severe peripheral vascular disease with whom we are familiar from both recent hospitalization and evaluation in the office. He presented for followup in the office yesterday with worsening ulceration, exposed bone and necrotic left third and fourth toes. He had previously been treated in the hospital, had a partial fifth ray amputation and tissue substitute placed and he had done well postoperatively. He did have an angiogram performed, which demonstrated severe vascular disease distal to the ankle area with really no distal targets and no options for either percutaneous or surgical revascularization. The patient has continued to use e-cigarettes despite being strongly cautioned about their use and their effect on wound healing and his vascular status. He has not managed his diabetes well and is under the impression that no longer has diabetes. PAST MEDICAL HISTORY: Once again, positive for left foot ulcer with abscess, status post debridement and partial fifth ray resection, end-stage renal disease requiring hemodialysis, diabetes mellitus, hypertension and severe peripheral vascular disease. ALLERGIES: None. MEDICATIONS: Include Banophen, Levaquin, melatonin, lorazepam, Coumadin, Lotensin, Desyrel, Requip, Colace, MiraLax, folic acid. SOCIAL HISTORY: The patient continues e-cigarettes, noted no alcohol use. FAMILY HISTORY: Noncontributory. REVIEW OF SYSTEMS: CONSTITUTIONAL: The patient denies fever, chills or weight loss. NEUROLOGICAL: The patient denies focal weakness. ENT: The patient denies earache, nasal drainage or sore throat. CARDIOVASCULAR: The patient denies chest pain, palpitations or diaphoresis. PULMONARY: The patient denies cough or shortness of breath. GASTROINTESTINAL: The patient denies nausea, vomiting or diarrhea. ORTHOPEDIC: The patient is aware of the ulceration, but denies pain involving [facility] [address] [place] [address] CONSULTATION Name: ROWENA SOSA Room #: 417-I [facility] IN M.R.#: [id number] Admission: 10/16/18 ������������������ Attend Phys: Carlos Queen MD Discharge: 10/18/18 ������������������ Date of : 62 Report #: [id number] his left foot. Other systems in a 14-point review of systems are negative. PHYSICAL EXAMINATION: VITAL SIGNS: At this time include temperature 36.9, pulse 93, respiratory rate of 16, blood pressure 170/105. GENERAL: This is a chronically ill-appearing male patient who appears to be in minimal distress. HEENT: Head normocephalic. Nose and throat are clear. NECK: Supple. LUNGS: Clear. HEART: Regular rhythm without murmur. ABDOMEN: Soft. Bowel sounds are present. EXTREMITIES: Examination of the lower extremities demonstrates a large ulceration on the lateral aspect of the left foot. There is exposed tendon, exposed bone and necrosis of the third and fourth toes. CLINICAL IMPRESSION: 1. Diabetic foot infection, left foot. 2. Severe peripheral arterial disease. 3. Diabetes mellitus. 4. End-stage renal disease requiring hemodialysis. RECOMMENDATIONS: At this point in time, the patient is very reluctant to consider mdnct-flw-idbe amputation, although I have advised him that this will likely be the case whether now or sometime in the not too distant future. We will ask Dr. Gant from Podiatry to see him to see if there is any salvage-type procedures that would still allow him to ambulate on his left foot. We will check sed rate, CRP, local wound care with quarter-strength Dakin's moist gauze dressings. Continue dialysis, antibiotic therapy. I appreciate being asked to see him in consultation. ��������������������������������������������� <ELECTRONICALLY SIGNED> ���������������������������������������� By: Claudio Amador MD ��������������������������������������������� 10/20/18 0803 [id number] 0147 Claudio Amador MD /nt
--- NOTE | 2018-10-20 13:32 | NUR ---
PT DISCHARGED OVER WEEKEND 10/18 DCP FAXED DC ORDERS TO [facility] SPOKE WITH SUZY IN INTAKE SHE RECEIVED DC ORDERS AND WILL NOTIFY PT TIME OF VISITS.
--- NOTE | 2018-10-20 15:02 | NUR ---
PT DISCHARGED OVER WEEKEND TO HOME WITH [facility] DCP FAXED DC ORDERS/SUMMARY TO [facility] AND SPOKE WITH MARTIN IN INTAKE SHE RECEIVED DC ORDERS AND WILL NOTIFY PT TIME OF VISITS.
== END 2018-10-18 14:06 | disposition home or self-care (01) | DRG 299 ==
LOC: 4E 13:24
PROVIDERS: Hospitalist; ADMIT Hospitalist
PROC: 5A1D70Z Performance of Urinary Filtration, Intermittent, Less than 6 Hours Per Day (ICD-10-PCS; principal; 2018-10-17)
DX: E11.52 Type 2 diabetes mellitus with diabetic peripheral angiopathy with gangrene (principal); N18.6 End stage renal disease; I96 Gangrene, not elsewhere classified; I12.0 Hypertensive chronic kidney disease with stage 5 chronic kidney disease or end stage renal disease; M86.8X7 Other osteomyelitis, ankle and foot; E11.621 Type 2 diabetes mellitus with foot ulcer; G47.33 Obstructive sleep apnea (adult) (pediatric); L97.529 Non-pressure chronic ulcer of other part of left foot with unspecified severity; G47.00 Insomnia, unspecified; I25.10 Atherosclerotic heart disease of native coronary artery without angina pectoris; F41.1 Generalized anxiety disorder; E11.69 Type 2 diabetes mellitus with other specified complication; G25.81 Restless legs syndrome; F17.210 Nicotine dependence, cigarettes, uncomplicated; Z86.73 Personal history of transient ischemic attack (TIA), and cerebral infarction without residual deficits; I25.2 Old myocardial infarction; Z99.2 Dependence on renal dialysis; Z95.5 Presence of coronary angioplasty implant and graft; Z89.421 Acquired absence of other right toe(s); Z89.422 Acquired absence of other left toe(s); Z79.4 Long term (current) use of insulin; Z79.01 Long term (current) use of anticoagulants; Z79.899 Other long term (current) drug therapy; Z83.3 Family history of diabetes mellitus; Z82.49 Family history of ischemic heart disease and other diseases of the circulatory system
CPT/HCPCS: 10783; 32100

== ENCOUNTER 2018-10-25 19:31 | Emergency (ER) | payer OTHER ==
[~2018-10-25] VITALS: Ht 182.9 cm; Wt 113.4 kg
[2018-10-25 19:51] LABS: HEMATOCRIT 22.9 % (42.0-52.0); HEMOGLOBIN 7.6 gm/dL (14.0-18.0); MCH 28.7 pg (26.0-34.0); MCHC 33.3 g/dL (28.0-37.0); MCV 86.4 fL (80.0-100.0); PLATELET COUNT 267 thou/uL (150-400); RBC 2.66 mil/uL (4.50-6.00); WBC 6.3 thou/uL (4.0-11.0)
[2018-10-25 19:53] LABS: ANION GAP 11 mmol/L (7-16); BUN 52 mg/dL (7-18); CALCIUM 9.4 mg/dL (8.5-10.1); CHLORIDE 103 mmol/L (98-107); CO2 23 mmol/L (21-32); CREATININE 7.6 mg/dL (0.7-1.3); GLUCOSE 104 mg/dL (74-106); POTASSIUM 5.4 mmol/L (3.5-5.1); SODIUM 137 mmol/L (136-145)
[2018-10-25 20:03] LABS: ALBUMIN 2.2 g/dL (3.4-5.0); SGOT 38 U/L (15-37); SGPT 23 U/L (30-65); TOTAL BILIRUBIN 0.3 mg/dL (<0.1-1.0); TOTAL PROTEIN 6.5 g/dL (6.4-8.2); TROPONIN-I <0.06 ng/mL (<0.06)
[2018-10-25 20:11] LABS: ABSOLUTE NEUTROPHILS 4.5 thou/uL (1.4-8.2)
[2018-10-25 20:12] LABS: ANISOCYTOSIS 1+; OVALOCYTES 1+; POLYCHROMASIA SLIGHT
[2018-10-25] MEDS ORDERED: NORCO 5-325 TA1 EAC1 PO (21:34)
[2018-10-25] MEDS ORDERED: TESSALON PERLE100 MG PO (21:34)
[2018-10-25] MEDS ORDERED: DOXYCYCLINE 10100 MG PO (21:34)
[2018-10-25 21:41] VITALS: BP 150/80
--- NOTE | 2018-10-27 09:03 | EKG ---
[place] [address] [facility] [place] [address] ELECTROCARDIOGRAM REPORT Name: ROWENA SOSA Room #: DEP Akhil#: [id number] ������������������ Admission: 10/25/18 ������������������ Attend Phys: Discharge: 10/25/18 ������������������ Date of : 62 Report #: [id number] ����������������������������������������������������������������� [id number] THIS REPORT FOR: //name// [facility] ED Test Date: 2018-10-25 Test Time: 19:42:05 Pat Name: ROWENA SOSA Department: Room: Gender: Olive Grader: DKENDRICK1 : 1960 Requested By: Jayden Thomas Order Number: [id number] MD: Jonas Albarado Measurements Intervals [place] Rate: 85 P: 42 MT: 192 QRS: -8 QRSD: 82 T: 120 QT: 363 QTc: 432 Interpretive Statements Sinus rhythm poor R wave progression Nonspecific T wave abnormality Compared to ECG 12/09/2007 16:19:49 poor R wave progression is now present Electronically Signed On 10-27-2018 9:03:01 CDT by Jonas Albarado [email or web address] ��������������������������������������������� <ELECTRONICALLY SIGNED> ���������������������������������������� By: Jonas Albarado MD, [facility] ��������������������������������������������� 10/27/18902 41 41 Jonas Albarado MD, [facility] /EPI
== END 2018-10-25 22:06 | disposition home or self-care (01) ==
LOC: ER 19:31
PROVIDERS: Physician Assistant
DX: J18.9 Pneumonia, unspecified organism (principal); R07.89 Other chest pain; E78.5 Hyperlipidemia, unspecified; I12.0 Hypertensive chronic kidney disease with stage 5 chronic kidney disease or end stage renal disease; E11.22 Type 2 diabetes mellitus with diabetic chronic kidney disease; N18.6 End stage renal disease; Z79.899 Other long term (current) drug therapy; Z95.5 Presence of coronary angioplasty implant and graft; Z79.01 Long term (current) use of anticoagulants; Z99.2 Dependence on renal dialysis

== ENCOUNTER 2018-10-28 10:42 | Inpatient (IN) | payer OTHER ==
[~2018-10-28] VITALS: Ht 193 cm; Wt 114.8 kg
--- NOTE | ~2018-10-28 | HC ---
[facility] [place] [address] CONSULTATION Name: ROWENA SOSA Room #: 453-P [facility] IN M.R.#: [id number] Admission: 11/12/18 Attend Phys: Jonathan Lee MD Discharge: Date of : 62 Report #: [id number] THIS REPORT FOR: //name// CC: Roe Lee DATE OF SERVICE: 11/12/2018 REASON FOR CONSULTATION: End-stage renal disease in need of dialysis. HISTORY OF PRESENT ILLNESS: This 57-year-old gentleman well known to our service, on chronic dialysis, patient has been admitted several times here for left diabetic foot ulcer. This did not heal and finally came to the need for amputation and he had a left agxhy-aue-zuqb amputation earlier today. Although he was due for dialysis today, his numbers and volume status looks okay and he will dialyze tomorrow morning. PAST MEDICAL HISTORY: Longstanding diabetes, previous MO with stent placements, decreased ejection fraction of only 30%, peripheral arterial disease, previous right toe amputation as well as cardiac stents. REVIEW OF SYSTEMS: Really cannot be taken. The patient is sedated. His family is here. Apparently, he has otherwise been doing well. He has not been short-winded. He has not been having chest pain. He has been eating okay. SOCIAL HISTORY: Remarkable for his continued use of e-cigarettes. FAMILY HISTORY: Please see old charts. PHYSICAL EXAMINATION: GENERAL: This is a reasonably well-appearing gentleman rather sedated, but arousable. SKIN: Otherwise, unremarkable. SKELETAL: Well-developed, well nourished, obese. Left vxjdg-scb-wrfz amputation with dressing and drain as expected. HEENT: Extraocular movements cannot be tested. Pupils are reactive. No scleral icterus. Mucous membranes are moist. NECK: Supple. CHEST: Slightly coarse. HEART: Regular. ABDOMEN: Soft and nontender. Left arm fistula looks excellent. NEUROLOGIC: Again, not tested due to his postoperative sedation. LABORATORY DATA: Creatinine 8.1. Electrolytes show sodium 137, potassium 4.3, chloride 104, bicarbonate 24. Hemoglobin was only 6.9 and he is receiving a unit of blood. [facility] [address] [place] [address] CONSULTATION Name: ROWENA SOSA Room #: 453-P [facility] IN .R.#: [id number] Admission: 11/12/18 Attend Phys: Jonathan Lee MD Discharge: Date of : 62 Report #: [id number] ASSESSMENT: 1. End-stage renal disease in need of dialysis. We will dialyze him in the morning, orders are in. 2. Status post left ocmzh-qxs-ltup amputation. 3. Peripheral arterial disease. 4. Diabetes mellitus with triopathy. 5. Coronary artery disease, status post previous coronary stenting. 6. Ischemic cardiomyopathy with decreased ejection fraction. DICTATION ENDS HERE By: [id number] Joshua Puga MD /fly
--- NOTE | ~2018-10-28 | HC ---
[facility] [place] [address] CONSULTATION Name: ROWENA SOSA Room #: 453-P [facility] IN M.R.#: [id number] Admission: 11/12/18 Attend Phys: Jonathan Lee MD Discharge: Date of : 62 Report #: [id number] THIS REPORT FOR: //name// CC: Roe Lee DATE OF SERVICE: 11/13/2018 HISTORY OF PRESENT ILLNESS: The patient is a 58-year-old -[place] male who was admitted to [facility] with gangrene of his left foot. He now has undergone a below-knee amputation on 11/12/2018. He has multiple medical comorbidities and we are seeing him in rehabilitation medicine consultation. PAST MEDICAL HISTORY: Includes end-stage renal disease, on hemodialysis; cardiomyopathy, ejection fraction 30%; diabetes mellitus, which has been diet controlled. He had a prior attempt of a fifth toe amputation, but eventually developed gangrene. There is a note of a history of CVA, on chronic anticoagulation; obstructive sleep apnea; peripheral arterial disease; restless leg syndrome, insulin-dependent diabetes mellitus. MEDICATIONS: Please see the full medication listing. ALLERGIES: No known drug allergies. PAST SURGICAL HISTORY: Right toe amputation, coronary stenting, two coronary stents, fistula for dialysis, and now the below-knee amputation. HABITS: History of e-cigarette usage. SOCIAL HISTORY: He lives in an apartment with his . 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 No stairs in. REVIEW OF SYSTEMS: He was sleepy, currently on dialysis. No current complaints of chest pain, shortness of breath or abdominal discomfort. PHYSICAL EXAMINATION: GENERAL: A 58-year-old -[place] male, in no obvious distress. VITAL SIGNS: Last recorded temperature 98.4, pulse 90, respirations 19, blood pressure is 151/80. NEUROMUSCULOSKELETAL: The patient is sleepy, currently on dialysis, will arouse. Answers basic questions. Follows basic commands and will drift back off to sleep. Upper extremity strength is probably at least a grade 4-/5. His right lower extremity strength is probably a grade 3+ to 4-/5. Left lower extremity is dressed post the below-knee amputation. Proximal strength is [facility] [address] [place] [address] CONSULTATION Name: ROWENA SOSA Room #: 453-P [facility] IN .R.#: [id number] Admission: 11/12/18 Attend Phys: Jonathan Lee MD Discharge: Date of : 62 Report #: [id number] probably a grade 3+/5. He has not gotten up yet with therapies and is currently on dialysis. ASSESSMENT: A 58-year-old -T[place] male with the following problem list: 1. Status post left below knee amputation for gangrene, 11/12/2018. 2. End-stage renal disease. 3. Coronary artery disease with prior myocardial infarction and coronary stenting. 4. Cardiomyopathy. 5. Diet-controlled diabetes. 6. Obstructive sleep apnea. 7. Prior history of cerebrovascular accident, on chronic anticoagulation. 8. Obstructive sleep apnea. PLAN: Therapy evaluations are underway. We will be glad to follow along with you regarding his rehab therapy needs. Insurance issues will need to be checked as he further medically stabilizes. By: 1055 0047 Jared Serna MD /nt
[~2018-10-28 10:42] MED LIST changes: +NORCO 5-325 TA1 EAC1 PO; +TESSALON PERLE100 MG PO
[2018-11-11] MEDS ORDERED: COREG25 MG PO (08:11)
[2018-11-11] MEDS ORDERED: LISINOPRIL2.5 M1 PO (08:12)
[2018-11-11] MEDS ORDERED: IMDUR 30 MG TAB30 M1 PO (08:12)
[2018-11-11] MEDS ORDERED: LIPITOR40 MG PO (08:13)
[2018-11-11] MEDS ORDERED: COUMADIN 1MG TAB1 M1 PO (08:14)
[2018-11-11] MEDS ORDERED: ASPIR 8181 MG PO (08:15)
[2018-11-12] VITALS (7 sets, daily range): BP systolic 142–176; BP diastolic 55–95
[2018-11-12 07:26] LABS: HEMATOCRIT 25.2 % (42.0-52.0); HEMOGLOBIN 8.1 gm/dL (14.0-18.0); MCH 27.4 pg (26.0-34.0); MCV 85.7 fL (80.0-100.0); RBC 2.94 mil/uL (4.50-6.00); RDW 18.5 % (10.5-14.5)
[2018-11-12 07:35] LABS: CALCIUM 10.3 mg/dL (8.5-10.1); CREATININE 8.1 mg/dL (0.7-1.3); POTASSIUM 4.3 mmol/L (3.5-5.1)
--- NOTE | 2018-11-12 07:39 | NUR ---
PT STATES HE IS ANXIOUS AND WANTS SOME MEDICATION FOR ANXIETY. EXPLAINED THAT ANESTHESIOLOGIST WOULD ASSESS HIM FIRST AND ORDER MEDS NEEDED. NO SCD'S PLACED ON PT DUE TO SURGERY AND CONTRAINDICATION OF PVD. PT KEEPS FALLING ASLEEP BETWEEN QUESTIONS. OCCASSIONAL MOANING WHILE LYING IN BED. WHEN ASKED IF HE HAS PAIN ANYWHERE CURRENTLY HE STATES LEFT FOOT BUT CANNOT GIVE A NUMBER FOR PAIN LEVEL.
[2018-11-12 07:43] LABS: INR 1.2; PROTIME 12.2 Seconds (9.3-11.4)
[2018-11-12 10:30] LABS: HEMATOCRIT 21.6 % (42.0-52.0)
[2018-11-12 10:34] LABS: HEMOGLOBIN 6.9 gm/dL (14.0-18.0)
--- NOTE | 2018-11-12 20:07 | NUR ---
PATIENT ARRIVED FROM POST OP PT SLEEPING, SISTERS AND BROTHER AT BEDSIDE. PT HAD I UNIT OF BLOOD PRBC INFUSING WAS ON GRAVITY STARTED IN POST OP. WAS COMPLETED AT 1520 .
--- NOTE | 2018-11-12 20:10 | NUR ---
DR CORRALES HERE TO SEE PATIENT NEW ORDERS DC FLUIDS IS DIAYLSIS PATIENT. STATRT DM DIET WITH AD ON OF HEALTHY HEART AND RENAL. ACCU CHECKS AC AND HS. O2 AT 2 L AT [facility]. DR MCKINLEY WAS HERE TO SEE PATIENT SEE NOTE FROM DOCTORS.
[2018-11-13 03:49] VITALS: BP 186/53
[2018-11-13 04:23] VITALS: BP 151/80
--- NOTE | 2018-11-13 04:57 | NUR ---
Assumed pt care at 1900. A/OX4,drowsy.VSS.C/o pain to left stump LOP 7/10 medicated per EMAR with relief reported. Oxygen applied @ 2L/NC at night pt has sleep apnea and unable to tolerate CPAP. Has a fistula on LUE with bruit/thrill present,reports gets dialysis M,W,F at [facility] and does produce some urine,pt hasn't voided yet verbalizes urge to void will bladder scan pt and assess. Left stump wrapped in acewrap with a Hemovac drain elevated on a pillow. Fall precautions implemented.
[2018-11-13 06:29] LABS: HEMATOCRIT 26.2 % (42.0-52.0); HEMOGLOBIN 8.6 gm/dL (14.0-18.0)
[2018-11-13 06:35] LABS: POTASSIUM 4.5 mmol/L (3.5-5.1)
--- NOTE | 2018-11-13 07:26 | EKG ---
[address] [address] ELECTROCARDIOGRAM REPORT Name: ROWENA SOSA Room #: 453-P ADM IN M.R.#: [id number] Admission: 11/12/18 Attend Phys: Jonathan Lee MD Discharge: Date of : 62 Report #: [id number] THIS REPORT FOR: //name// [facility] Test Date: 2018-11-12 Test Time: 10:36:15 Pat Name: ROWENA SOSA Department: Room: [facility] Gender: M Chronograph Operator: RUY : 1960 Requested By: Jonathan Lee Order Number: [id number] MD: Jonas Albarado Measurements Intervals [place] Rate: 77 P: 30 [place]: 190 QRS: -26 QRSD: 86 T: 121 QT: 393 QTc: 445 Interpretive Statements Sinus rhythm Probable left atrial enlargement Inferior infarct, old Anteroseptal infarct, age indeterminate Compared to ECG 10/25/2018 19:42:05 No significant change was found Electronically Signed On 11-13-2018 7:25:58 CDT by Jonas Albarado [email or web address] <ELECTRONICALLY SIGNED> By: Jonas Albarado MD, [facility] 11/13/18 0725 1036 1036 Jonas Albarado MD, [facility] /EPI
--- NOTE | 2018-11-13 09:50 | NUR ---
chart review, cm visited with pt at bedside, own dialysis tx. pt open eye to calling of his name and touch of his right shoulder. pt quickly would closes his eye during conversation. he answer yes and no during visit, he did report no pain and slept very well per myke. pt had [facility]h [facility] past with [facility] and been to acute rehab in past around july. cm letting pt rest, called and spoke with is on phone " they live in apartment, no steps, has scooter, and walker. i still work from in am and he will have to be able to be home alone. he was independent prior to, was not driving. i will take him to dialysis and then he would get ride home, goes to [facility] dialysis. he able to stay home while working and not sure when prosthesis will get in and now cant walk, i will visit with him later"/bear. consult for 5n acute rehab will cont following as needed for dc needs.
[2018-11-13 11:36] VITALS: BP 160/77
[2018-11-13 14:45] VITALS: BP 172/94
--- NOTE | 2018-11-13 14:59 | NUR ---
Assumed care of pt at 0700. Pt post left BKA. Went for dialysis early am. Dressing clean and intact, elevated. Hemovac drain in place. Pt drowsy at times. 2L O2. Will bladder scan and assess if needs straight catheterization. Pain controlled with prn pain meds. Fall precautions in place. Will continue to monitor.
--- NOTE | 2018-11-13 17:08 | O ---
[facility] [place] [address] OPERATIVE REPORT Name: ROWENA SOSA Room #: 453-P [facility] IN M.R.#: [id number] Admission: 11/12/18 Attend Phys: Jonathan Lee MD Discharge: Date of : 62 Report #: [id number] THIS REPORT FOR: //name// CC: Roe Lee DATE OF SERVICE: 11/12/2018 PREOPERATIVE DIAGNOSIS: Left foot gangrene. POSTOPERATIVE DIAGNOSIS: Left foot gangrene. PROCEDURE: Left oaqcl-zum-xroj amputation. SURGEON: Jonathan Lee M.D. ANESTHESIA: General. ESTIMATED BLOOD LOSS: 500 mL. DRAINS: One Hemovac drain was placed. TOURNIQUET TIME: 45 minutes. DESCRIPTION OF PROCEDURE: The patient brought to the operating room where he was placed under general anesthesia. Once under adequate general anesthesia, his left lower extremity was elevated and tourniquet placed to 350 mmHg. A fishmouth type incision about the mid shaft of the tibia was then made. This was dissected down sharply to the tibia and fibula. Periosteum was elevated off of the bone and these bones were then transected with an oscillating saw, protecting the vasculature. The vasculature was then clamped with hemostats. The oscillating saw was used to bevel the anterior portion of the tibia as well as to cut the fibula for a few centimeters proximal in an oblique fashion. The remainder of the tissue was sharply cut with a 15 blade and the distal extremity was then completely removed. The wound was irrigated copiously with normal saline solution. The vasculature was ligated with 0 silk suture. The wound was irrigated once again copiously and #1 Vicryl was used to close the periosteal layer to the deep fascial layer of the musculature. The wound was irrigated once again copiously and #1 Vicryl was used to close the deep fascial layer, 2-0 Vicryl was used to close the subcutaneous tissues and kunal were used for the skin. Wound was dressed with Xeroform, 4 x 4s, and sterile soft compressive dressing was placed. Hemovac drain had been placed prior to wound closure. Tourniquet was let down at 45 minutes. There were no complications from the [address] [address] OPERATIVE REPORT Name: RACHNA SOSAREN Room #: 453-P [facility] IN [facility].#: [id number] Admission: 11/12/18 Attend Phys: Jonathan Lee MD Discharge: Date of : 62 Report #: [id number] procedure. The patient tolerated the procedure well and went to the recovery room without incident. <ELECTRONICALLY SIGNED> By: Jonathan Lee MD 11/13/18 1708 [id number] Jonathan Lee MD /nt
[2018-11-13 19:34] VITALS: BP 161/79
[2018-11-14 00:59] VITALS: BP 155/78
--- NOTE | 2018-11-14 01:17 | NUR ---
PATIENT AOX2 CONFUSED AND FORGETFUL AT TIMES. PAIN CONTROLLED THIS SHIFT. PATIET LEFT KNEE AMBER WRAP IS C/D/I. HEMO VAC INTACT. PATIENT TURNED Q 2 HOUR. PATIENT ON CONTINOUS OXYGEN AT NIGHT NO SHORTNESS OF AIR OR DISTESS NOTED THIS SHIFT. PATIENT HAD DIALYSIS AND TOLERATED WELL. PATIENT IN BED ASLEEP AT THIS TIME BREATHING REGULAR AND UNLABOURED.
[2018-11-14 03:11] VITALS: BP 154/80
[2018-11-14 05:31] LABS: CALCIUM 9.3 mg/dL (8.5-10.1); PHOSPHORUS 5.8 mg/dL (2.5-4.9); POTASSIUM 4.1 mmol/L (3.5-5.1)
[2018-11-14 05:34] LABS: % SATURATION 12 % (20-39); CREATININE 6.8 mg/dL (0.7-1.3); IRON 13 ug/dL (65-175); TIBC 111 ug/dL (250-450)
[2018-11-14 07:30] VITALS: BP 145/73
--- NOTE | 2018-11-14 12:05 | NUR ---
[place] visited with myke at bedside, he was in bed with eyes open and able to have verbal communication this visit. marietta ramos made visit, referral for stumb patient assistant from [place] and wants pt to start inpt acute rehab. pt is agreeable for 5n and has been to 5n acute rehab in past. pt drain dc by addy RAMOS today visit. cm spoke with bedside nurse. will need insurance auth for 5 N bedside nurse to call report [phone].
[2018-11-14 13:48] VITALS: BP 156/81
--- NOTE | 2018-11-14 14:15 | NUR ---
AUTHORIZATION FOR ACUTE REHAB STAY REQUESTED FROM PATIENT'S INSURANCE, [employer]. WILL AWAIT RESPONSE AND ADMIT WHEN/IF AUTHORIZATION RECEIVED. THANK YOU FOR THIS REFERRAL.
--- NOTE | 2018-11-14 14:29 | NUR ---
PATIENT CARE WAS ASSUMED AT 0715.PATIENT IS ALERT AND ORIENTED X3.PATIENT IS FORGETFUL AT TIME.PATIENT IS VERY DROWSY THIS MORNING.PATIENT WAS GIVEN TYLENOL INSTEAD OF PAIN MEDS UNTIL HE IS MORE ALERT.PATIENT IS RESTING IN BED.PT HAS NO CPAP IN PLACE WHILE SLEEPING.DRESSING IS CLEAN, DRY, AND INTACT FROM LEFT BKA.PT/OT WILL BE WORKING WITH PATIENT.PLAN IS TO HAVE PATIENT GO TO RE[facility].HOPE FOR STUMP FUGITIVE INVESTIGATOR WAS CONSULTED AND CALLED.PT HAS CALL LIGHT,PHONE, AND PERSONAL BELONGINGS WITHIN REACH.
[2018-11-14 20:19] VITALS: BP 166/94
[2018-11-15 04:06] VITALS: BP 179/80
--- NOTE | 2018-11-15 04:35 | NUR ---
ASSUMED CARE OF PT AT 1900HRS. PT AOX3 AND LETS NEEDS BE KNOWN. FALL PRECUTION IN PLACE. PT HAD DIALYSIS THIS SHIFT AND 2L OF FLUID WAS REMOVED. PT ON 1500ML FLUID RESTIRCTION. PT REPORTED SOME ARREOLA AND WAS TREATED WITH PRN ARREOLA MEDS. STUMP ORDER DESK CLERK IS IN PLACE AND NOT SAURATED. NO S/S OF ACUTE DISTRESS. WILL CONTINUE TO MONITOR.
[2018-11-15 08:54] VITALS: BP 151/73
[2018-11-15 15:05] VITALS: BP 146/70
--- NOTE | 2018-11-15 16:03 | NUR ---
Assessment completed.vss.Pt in bed maost of the time today and repositioned self as needed.Pt c/o left stump pain and med given as ordered with relief. Dr Puga here and Tanya here,order noted.Family here to visit,updates given. Will continue to monitor.
[2018-11-15 19:17] VITALS: BP 131/62
[2018-11-16 07:23] VITALS: BP 143/77
[2018-11-16 13:31] VITALS: BP 147/76
--- NOTE | 2018-11-16 18:30 | NUR ---
PT ASSESSED AT START OF SHIFT. THERAPY GOT PT UP TO W/C AND HE DID WELL. RODE AROUND THE UNIT IN W/C. TRANSFERRED W/ 2 TO BED. C/O CONSTIPATION BUT EATING LARGE AMTS OF FOOD. PT TOOK LT STUMP DSNG OFF HIMSELF STATING HE WAS SUPPOSED TO. EDUCATION DONE RE DSNG CHANGES. PLAN FOR REHAB AFTER DISCHARGE.
[2018-11-16 19:29] VITALS: BP 144/88
--- NOTE | 2018-11-17 05:13 | NUR ---
Pt. rested quietly at short intervals during the night when checkeed on during frequent rounds. Pt. did remove his dressing to his left bka incision. Ronaldo are intact and it was redressed. He does c/o pain and was given po pain meds (see emar) with some relief noted. He also c/o indigestion and constipation. Called and spoke to Dr. Schmitz with new orders for prn tums and milk of magnesia (see cpoe). Meds given with relief of indigestion noted. Bed alarm is on.
[2018-11-17 05:57] LABS: ALBUMIN 1.9 g/dL (3.4-5.0); CALCIUM 9.6 mg/dL (8.5-10.1); PHOSPHORUS 5.6 mg/dL (2.5-4.9); POTASSIUM 4.7 mmol/L (3.5-5.1)
[2018-11-17 08:03] VITALS: BP 150/70
[2018-11-17 13:33] VITALS: BP 142/66
--- NOTE | 2018-11-17 13:36 | HC ---
[facility] [place] [address] CONSULTATION Name: ROWENA SOSA Room #: 453-P [facility] IN M.R.#: [id number] Admission: 11/12/18 Attend Phys: Jonathan Lee MD Discharge: Date of : 62 Report #: [id number] THIS REPORT FOR: //name// CC: Roe Lee DATE OF SERVICE: 11/13/2018 INFECTIOUS DISEASE CONSULTATION REASON FOR CONSULTATION: I was asked to evaluate concerning gangrene of his left foot. HISTORY OF PRESENT ILLNESS: A 57-year-old with underlying diabetes, end-stage renal disease, peripheral vascular disease, who developed gangrene of his left foot. He has been dealing with this for several months. He acutely worsened and he was hospitalized for elective below knee amputation. This was performed yesterday. He has had no postoperative complications. He has a Hemovac in place. No fever, chills or sweats. Undergoes 3 days a week dialysis left upper extremity AV fistula. Do not have any microbiology reports yet. ALLERGIES: None known. MEDICATIONS: As noted on his MAR. PAST MEDICAL HISTORY: Diabetes, coronary artery disease, hypertension, end-stage renal disease, peripheral vascular disease, coronary artery disease, status post stenting, right toe amputation. Fistula for dialysis. FAMILY HISTORY: Noncontributory. SOCIAL HISTORY: Nonsmoker, no significant alcohol intake. He does use e-cigarettes. REVIEW OF SYSTEMS: He has had no cough or sputum. No nausea, vomiting or diarrhea. PHYSICAL EXAMINATION: VITAL SIGNS: He is afebrile, hemodynamically stable. GENITOURINARY: He was obese. EXTREMITIES: Left upper extremity AV fistula site was unremarkable. EYES: Clear with no conjunctivitis or scleral icterus. MOUTH: Without mucositis. NECK: Supple. LUNGS: Clear. HEART: Regular, without murmur, gallop or rub. [facility] [address] [place] [address] CONSULTATION Name: ROWENA SSOA Room #: 453-P [facility] IN [facility].#: [id number] Admission: 11/12/18 Attend Phys: Jonathan Lee MD Discharge: Date of : 62 Report #: [id number] ABDOMEN: Obese, soft and nontender. Left zogwe-bqz-aoub amputation site was dressed and dry. Hemovac remains in place with small volume bloody output. EXTREMITIES: Right lower extremity with absent fifth toe, status post ray amputation. Decreased sensation in his distal foot. Laboratory studies reviewed. IMPRESSION: 1. Postoperative day #1 status post left below the knee amputation for gangrene of his foot. 2. End-stage renal disease. 3. Diabetes. 4. Hypertension. 5. Anemia. 6. Coronary artery disease. 7. Cardiomyopathy. 8. Obstructive sleep apnea. RECOMMENDATIONS: We will continue with cefazolin for the next 3 days. We will await evaluation of his surgical site before discontinuation. Continue diabetic management. Continue management of end-stage renal disease. <ELECTRONICALLY SIGNED> By: Remy Castle MD 11/17/18 1336 [id number] Remy Castle MD /nt
--- NOTE | 2018-11-17 15:06 | PATH ---
[facility] [address] [place] [address] PATHOLOGY RPT PROCEDURE Name: BALJIT SULLIVAN Room #: 453-P ADM IN M.R.#: [id number] Admission: 11/12/18 Date of : 62 Discharge: Report #: [id number] Path Case #: [id number] [facility] Accession Number: [id number] . 01 Material submitted: . leg - LEFT BELOW THE KNEE AMPUTATION. Modifiers: left . 01 Clinical history: . Left leg osteomyelitis . 02 Diagnosis: Lower leg, left, amputation: - Skin and soft tissue with associated ulcer, gangrenous necrosis, and abscess formation. - Small to medium sized vessels with associated coarse calcification. - Reactive bone. - Viable resection margins. (MAP:[facility] 11/17/2018) QTP/11/17/2018 . 02 Electronically signed: . Nick Duenas MD, Pathologist NPI- [id number] . 01 Gross description: . The specimen is received fresh in a red biohazard bag, labeled "Baljit Sullivan, left below knee amputation". Received is a left vjlkz-gmz-otbr amputation measuring 26.2 cm from heel to toe, 18.4 cm from heel to skin margin, 25.9 cm from heel to tibial margin, and 28.5 cm from heel to fibular margin. The skin and soft tissue margins are viable. Toes 1 through 4 are present and toe 5 has been previously amputated. On the lateral aspect of the foot, where toe 5 was located, there is a poorly circumscribed, irregular in contour and necrotic-appearing lesion measuring 7.5 x 3.2 cm in greatest dimensions. Toes 3 and 4 are brown-black and mummified in appearance. On the dorsal aspect of the foot, there is a poorly circumscribed, mottled and pale curry to light brown area measuring 5.8 x 3.3 cm. The remainder of the epidermis is light curry to light brown in and slightly flaky in appearance. Sectioning through the anterior tibial vasculature reveals patent lumens that are slightly calcified. Sectioning through the posterior tibial vasculature reveals pinpoint to patent lumens that are slightly calcified. Battery Tester And Repairer sections are submitted as follows: . A1 skin and soft tissue margin A2 personal financial representative section of bone underlying lesion on lateral aspect of foot, following decalcification A3 personal financial representative section of bone from toe 4, following decalcification [address] [address] PATHOLOGY RPT PROCEDURE Name: BALJIT SULLIVAN Room #: 453-P ADM IN M.R.#: [id number] Admission: 11/12/18 Date of : 62 Discharge: Report #: [id number] Path Case #: [id number] A4 personal financial representative sections of mottled area on dorsal aspect of foot A5 anterior tibial vasculature, following light decalcification A6 posterior tibial vasculature, following decalcification. (CAA; 11/13/2018) QAC/QAC . 02 Pathologist provided ICD-10: L98.499, I96, M86.8X6 . 02 CPT . 558635, [id number] Specimen Comment: A courtesy copy of this report has been sent to Specimen Comment: [phone], . Specimen Comment: Report sent to DR PHELPS / DR JACOBS Performed at: [address], [place] [id number] MD Iron Pulido MD Phone: [phone] Performed at: [address] [id number] MD Maureen Castorena MD Phone: [phone]
== END 2018-11-17 15:32 | DRG 239 ==
LOC: OR 10:42 → TBA 11-12 06:45 → 4W 11-12 06:45 → PRE 11-12 09:28 → 4W 11-12 15:18 → EDSTATUS 11-12 16:02 → PRE 11-12 16:04 → OR 11-12 17:37 → 4W 11-17 15:32
PROVIDERS: Internal Medicine Nephrology; Student in an Organized Health Care Education/Training Program; ADMIT Orthopaedic Surgery Foot and Ankle Surgery
PROC: 30233N1 Transfusion of Nonautologous Red Blood Cells into Peripheral Vein, Percutaneous Approach (ICD-10-PCS; principal; 2018-11-12)
PROC: 0Y6J0Z3 Detachment at Left Lower Leg, Low, Open Approach (ICD-10-PCS; principal; 2018-11-12)
PROC: 5A1D70Z Performance of Urinary Filtration, Intermittent, Less than 6 Hours Per Day (ICD-10-PCS; 2018-11-13)
PROC: 5A1D70Z Performance of Urinary Filtration, Intermittent, Less than 6 Hours Per Day (ICD-10-PCS; 2018-11-14)
PROC: 5A1D70Z Performance of Urinary Filtration, Intermittent, Less than 6 Hours Per Day (ICD-10-PCS; 2018-11-17)
DX: E11.52 Type 2 diabetes mellitus with diabetic peripheral angiopathy with gangrene (principal); N18.6 End stage renal disease; I96 Gangrene, not elsewhere classified; I12.0 Hypertensive chronic kidney disease with stage 5 chronic kidney disease or end stage renal disease; D62 Acute posthemorrhagic anemia; G93.40 Encephalopathy, unspecified; E46 Unspecified protein-calorie malnutrition; I25.10 Atherosclerotic heart disease of native coronary artery without angina pectoris; I25.5 Ischemic cardiomyopathy; G47.33 Obstructive sleep apnea (adult) (pediatric); G25.81 Restless legs syndrome; F17.200 Nicotine dependence, unspecified, uncomplicated; E11.22 Type 2 diabetes mellitus with diabetic chronic kidney disease; I25.2 Old myocardial infarction; Z89.421 Acquired absence of other right toe(s); Z95.5 Presence of coronary angioplasty implant and graft; Z86.73 Personal history of transient ischemic attack (TIA), and cerebral infarction without residual deficits; Z68.30 Body mass index [BMI] 30.0-30.9, adult; Z79.4 Long term (current) use of insulin; Z79.899 Other long term (current) drug therapy
CPT/HCPCS: 10047; 32100; 50010; 50101; 50386; 51412; 53000; 56524; 56525; 57091; 57180; 62110; 62900; 70005

== ENCOUNTER 2018-11-15 13:55 | Inpatient (IN) | payer OTHER ==
[~2018-11-15] VITALS: Ht 182.9 cm; Wt 102.1 kg
[~2018-11-15 13:55] MED LIST changes: +ASPIR 8181 MG PO; +COREG25 MG PO; +IMDUR 30 MG TAB30 M1 PO; +LIPITOR40 MG PO; +LISINOPRIL2.5 M1 PO
[2018-11-17 15:30] VITALS: BP 171/89
--- NOTE | 2018-11-17 18:40 | NUR ---
PT READMITTED TO ROOM 504 AROUND 1530 S/P LEFT BKA FOR GANGERENE 11/12/18. PATIENT IS ALERT AND ORIENTED X4. ABLE TO VOICE HIS NEEDS. REASSESSMENT PER CHART DURAL MECHANIC UPPER EXTREMETIES LUNGS ARE CLEAR AND DIMINISHED. BS HYPOACTIVE. REPORTS LAST BM WAS QUITE AWHILE. DOESN'T FEEL GOOD. C/O NAUSEA. NOTIFIED BRII TO OBTAIN ORDER FOR ZOFRAN, MIRALAX AND SUPPOSITORY. MEDS GIVEN. FEELS BETTER NOW. C/O HEADACHE 5/10, GAVE PRN TRAMADOL LEFT BKA DRESSING C/D/I. CHANGED PRIOR COME UP TO 5N. C/O PAIN 7/10 ON ADMISSION. PRN HYDROCODONE GIVEN. PAIN IS DOWN TO 5/10 NOW. IV ON RIGHT FOREARM S.L. INFILTRATED. NO LONGER ON IV ABT. REMOVED IV. B/P 172/89. GAVE CARVEDILOL 50MG GIVEN. PT/OT/ST GONZALEZ TO BE DONE IN A.M. REVIEWED ADMISSION MEDS WITH PT. DISCUSSED WITH REHAB SCHEDULE. OFFERED SUPPORTIVE CARE AND EMOTIONAL SUPPORT. FALL PRECAUTION IN PLACE. CALL LIGHT WITHIN REACH. WILL CONTINUE TO MONITOR.
--- NOTE | 2018-11-17 19:27 | NUR ---
PT ABLE TO URINATE 300CC YELLOW URINE. HAD DIALYSIS TODAY. 4W NURSE SAID PT HAD 2L FLUID OFF. PT VOMITTED ONE TIME, FELT BETTER. PT SAID I DO NOT WANT TO TAKE ANXIETY MED, IT MADE ME HALLUCINATED. MIRALAX AND SUPPOSITORY GIVEN. NO RESULT. PHYSICIAN CONSULTS CALLED EXCEPT FOR DR. MARTELL. GAVE REPORT TO NIGHT NURSE TO CONTINUE TO MONITOR HIGH B/P, BM.
[2018-11-17 19:33] VITALS: BP 132/75
[2018-11-17 21:45] VITALS: BP 141/72
--- NOTE | 2018-11-18 02:16 | NUR ---
ASSUMED CARES AT 1900. PT ALERT AND ORIENTED*4 BUT FORGETFUL. DENIES PAIN. ABDOMEN IS FIRM AND DISTENDED, PT DOES NOT REMEMBER LAST BM. HAD AN XSM BM TONIGHT. DENIES NAUSEA. LS CLEAR AND DIM, ON 2L O2 AT NOC VIA NC WITH SATS >95%. INCISION ON LEFT BKA REMAINS INTACT AND DRY. PT UP WITH 2 MOD, PIVOT TRANSFERS TO BEDSIDE COMMODE AND BACK TO BED. Q1H VISUAL CHECKS. CALL LIGHT WITHIN REACH. FALL PRECAUTIONS IN PLACE
[2018-11-18 05:22] VITALS: BP 136/65
[2018-11-18 06:04] LABS: HEMATOCRIT 22.1 % (42.0-52.0); HEMOGLOBIN 7.1 gm/dL (14.0-18.0); MCH 27.4 pg (26.0-34.0); MCV 85.7 fL (80.0-100.0); RBC 2.58 mil/uL (4.50-6.00); RDW 17.1 % (10.5-14.5); WBC 4.6 thou/uL (4.0-11.0)
[2018-11-18 06:08] LABS: CALCIUM 9.3 mg/dL (8.5-10.1); POTASSIUM 4.2 mmol/L (3.5-5.1)
[2018-11-18 06:09] LABS: CREATININE 5.3 mg/dL (0.7-1.3)
[2018-11-18 07:30] VITALS: BP 140/59
--- NOTE | 2018-11-18 09:01 | NUR ---
ASSUMED CARES AT 0700. PT WAS SLEEPING. NIGHT RN SAID PT DIDN'T SLEEP WELL LAST NIGH. ONLY HAD SMALL BM LAST NIGHT. BS HYPOACTIVE.ABD IS STILL DISTENDED PT ATE 90% BREAKFAST AND THROW UP. PRN ZOFRAN GIVEN. WILL NOTIFY BRII FOR KUB. PT ALERT AND ORIENTEDX 4 BUT FORGETFUL. C/O LEFT BKA RATES PAIN 7/10 INCISION ON LEFT BKA REMAINS INTACT AND DRY. PT UP WITH 2 MOD, PIVOT TRANSFERS TO . OFFERED SUPPORTIVE CARE. VSS ON RA. MORNING MEDS GIVEN. PT IS WORKING WITH SPEECH THERAPIST AT THIS MOMENT. Q1H VISUAL CHECKS. FALL PRECAUTION IN PLACE. WILL CONTINUE TO MONITOR.
--- NOTE | 2018-11-18 09:54 | NUR ---
chart review, pt new to unit, he been here in past for acute rehab. here with left bka. pt lives with bear, no steps, has elevator. drives him. goes to [facility] in past. he has some dme equip at home. will cont following as needed for dc needs.
--- NOTE | 2018-11-18 13:38 | NUR ---
team meeting, recommendation: re team.
[2018-11-18 19:20] VITALS: BP 125/81
[2018-11-18 21:55] VITALS: BP 119/65
--- NOTE | 2018-11-18 22:02 | NUR ---
ASSUMED CARES AT 1900. PT SLEEPY BUT WAKES UP EASILY. ORIENTED*4 BUT FORGETFUL. PT HAVING POSSIBLE HALLUCINATIONS (SPEAKING LOUDLY IN HIS SLEEP AND CALLING OUT). VITALS REMAIN STABLE. HYDRALIZINE HELD FOR BP 119/65 AT 2200. PT DENIES PAIN. DRESSING ON LEFT BKA REMAINS DRY AND INTACT. PT SLEEPING FROM 1999. UP TO BEDSIDE COMMODE WITH 1 MIN ASSIST PIVOT TRANSFER, GAITBELT AND WALKER AND TOLERATED WELL. O2 2L UTILISED ALL NOC. Q1H VISUAL CHECKS. CALL LIGHT WITHIN REACH. FALL PRECAUTIONS IN PLACE
[2018-11-19 00:30] VITALS: BP 147/76
[2018-11-19 05:32] VITALS: BP 137/71
[2018-11-19 06:20] LABS: INR 1.4; PROTIME 14.3 Seconds (9.3-11.4)
[2018-11-19 07:45] VITALS: BP 139/79
--- NOTE | 2018-11-19 16:21 | NUR ---
ASSUMED CARE OF PT AT 0715. PT IS ALERT AND ORIENTED TO PERSON AND PLACE, VITAL SIGNS ARE STABLE. PT REPORTED PAIN THIS MONRING, BUT REFUSED PAIN MEDICAITONS. IV TO RIGHT AC INFILTRATED THIS AM, IV TEAM PLACED SECOND IV AND PT SELF REMOVED ACCESS. FREIGHT ROUTER NOTIFIED ABOUT LOSS OF IV ACCESS AND ORDERS FOR IRON SUCROSE AND EPOETIN CHANGED TO BE GIVEN DURING DIALYSIS. PT HEMODIALYSIS SCHEDULED CHANGED TO , , . FISTULA TO LUE, BRUIT AND THRILL NOTED. PT PARTICIPATED IN SCHEDULED THERAPIES. PT REPORTS OF HALLUCINATIONS, MEDICAITONS CHANGED BY PROVIDERS ACCORDINGLY. FALL PRECAUTIONS IN PLACE AND NURSING WILL CONTINUE TO MONITOR.
[2018-11-19 19:35] VITALS: BP 138/70
--- NOTE | 2018-11-20 01:54 | NUR ---
ASSESSMENT: PT REMAIN ALERT AND ORIENT TIMES TWO, FORGETFUL AT TIMES. PT DID GET IN WHEEL CHAIR WITH MINIMAL ASSISTANCE. DID WELL WITH GB AND PIVIOTING WITH RIGHT LEG. VSS, AFEBRILE. LEFT UA FISTULA + BRUIT AND THRILL. LEFT BKA STUMP NOTED WITH DRESSING C/D/I. STATE THAT PAIN IS GETTING BETTER AND DOSEN'T THROB OFTEN. PT DENIES HALLUCINATIONS, BUT DOES MOAN LOUD OR CALL OUT WHILE ASLEEP. NO VOMITING THIS SHIFT. SLOW PROGRESS, WILL CONTINUE TO MONITOR.
[2018-11-20 05:37] LABS: INR 2.1; PROTIME 21.4 Seconds (9.3-11.4)
[2018-11-20 05:45] LABS: CALCIUM 9.7 mg/dL (8.5-10.1); PHOSPHORUS 4.8 mg/dL (2.5-4.9); POTASSIUM 4.6 mmol/L (3.5-5.1)
[2018-11-20 05:55] LABS: CREATININE 7.4 mg/dL (0.7-1.3)
[2018-11-20 07:25] VITALS: BP 121/45
--- NOTE | 2018-11-20 18:57 | NUR ---
ASSUMED CARE OF PT AT 0715. PT IS A&OX2-3, VITAL SIGNS ARE STABLE. PT IS IMPULSIVE. PT FREQUENTLY REMOVED AMPUSHIELD DESPITE EDUCATION ABOUT THE NECESSITY OF AMPU SHIELD. PT PARTICIPATED IN SCHEDULED THERAPIES AND DENIED PAIN THIS SHIFT. NO EMESIS REPORTED. DIALYSIS FISTULA TO LUE, BRUIT AND THRILL NOTED. PT TRANSPORTED TO DIALYSIS AT APPROXIMATELY 1500. PER DIALYSIS NURSE, PT NOT GIVEN BLOOD PRESSURE MEDICATIONS PRIOR TO DIALISIS. PT SENT WITH IRON SUCROSE, EPOTEIN, AND 2 1000ML BAGS OF NS.
--- NOTE | 2018-11-21 02:31 | NUR ---
ASSUMED CARES AT 1900. PT AWAKE, ALERT AND ORIENTED*4. PT BECAME VERY RESTLESS FROM 2100, STATING THAT HE COULDN'T BREATHE WELL LAYING DOWN AND THAT HE FELT CONFINED. TRANSFERED TO / AND AMBULATED WITHIN THE UNIT BUT REMAINED RESTLESS AND WAS MOURNING/ MUMBLING LOUDLY. SATS REMAINED STABLE >95% ON RA, LS CLEAR. ORDER RECEIVED FOR ONETIME HALDOL BUT PT REFUSED STATING IT CAUSES HALLUCINATIONS. BIPAP CONNECTED AND PT ABLE TO SLEEP FOR 3OMINS INTERVALS. KEEPS TAKING OFF THE BIPAP. INCISION ON LEFT BKA CLEANED AND DRESSING CHANGED, PT REMOVED THE DRESSING AFTER 10MINS AND THEN PUT ON THE STUMP ASSEMBLER LIQUID CENTER. UP TO THE BEDSIDE COMMODE WITH 2 ASSIST, GAITBELT AND SLIDEBOARD. FREQUENT VISUAL CHECKS. CALL LIGHT WITHIN REACH. FALL PRECAUTIONS IN PLACE
[2018-11-21 05:49] VITALS: BP 163/90
[2018-11-21 07:30] VITALS: BP 153/77
--- NOTE | 2018-11-21 15:06 | HC ---
[facility] [place] [address] CONSULTATION Name: ROWENA SOSA Room #: 504-1 ADM IN M.R.#: [id number] Admission: 11/17/18 Attend Phys: Jared Serna MD Discharge: Date of : 62 Report #: [id number] THIS REPORT FOR: //name// CC: Jared Soria DATE OF SERVICE: 11/19/2018 HISTORY OF PRESENT ILLNESS: This patient has been admitted to the hospital and is now on the rehab unit. Specifically, there is some focus with respect to the recent amputation and returning to activities of daily living and preparing for prosthesis. He does have history of some anxiety and insomnia and he noted that recently there were hallucinations at night. He is aware this was caused by one of the medications. He makes it clear that he has not given up and he has tried to be forward thinking and take his recovery seriously. PAST PSYCHIATRIC HISTORY: Saw Dr. Elizondo in consultation a few months back, at that time, I believe, lorazepam was recommended. The patient reports he has been exposed to lorazepam and zolpidem, but sounds as though he does not really want to take either of these for insomnia. The anxiety has not been as much of a problem except in the middle of the night. Some medicine recently has caused hallucinations and he has suspected the benzodiazepines, but feels that it may more likely have been due to either the trazodone or the nicotine patch. ALLERGIES: No known medication allergies. CURRENT MEDICATIONS: Include Procrit 2000 alternate days, Reglan 5 mg at meals and bedtime, nicotine patch 14 mg daily, Ativan p.r.n., aspirin 81 mg daily, lisinopril 2.5 daily, isosorbide mononitrate 30 at bedtime, warfarin 2 mg at dinner, warfarin 5 mg at dinner, Coreg 6.25 ____ 50 mg twice daily. PAST MEDICAL HISTORY: He has had lower extremity amputation. He is on dialysis. Cardiomyopathy, hypertension. SOCIAL HISTORY: He has a history of drug and alcohol use, but is proud to report that this is in remission and that he has been sober. 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 He is happily for over 30 years. He has a child and a grandkid on the way. MENTAL STATUS EXAM: -Tristanian male, casually dressed, stable mood and affect. Normal rhythm. Speech is articulate. No suicidal ideation, no homicidal ideation, no hallucinations or delusions. Insight and judgment fair. DIAGNOSES: Adjustment disorder, depressed mood, nicotine dependence, primary insomnia, psychosis, not otherwise specified. [facility] [address] [place] [address] CONSULTATION Name: ROWENA SOSA Room #: 504-1 ADM IN M.R.#: [id number] Admission: 11/17/18 Attend Phys: Jared Serna MD Discharge: Date of : 62 Report #: [id number] RECOMMENDATIONS: We will try melatonin and Benadryl tonight. He has tolerated these in the past. He does not want to use a controlled substance such as zolpidem or lorazepam, does not shanti to use trazodone either. The source of the hallucinations is somewhat unclear, but it is correct that trazodone can cause him hallucinations as can the nicotine patch. <ELECTRONICALLY SIGNED> By: Bhavin Wilhelm MD 11/21/18 1506 [id number] Bhavin Wilhelm MD /nt
[2018-11-21 20:00] VITALS: BP 153/71
--- NOTE | 2018-11-21 20:48 | NUR ---
ASSUMED CARE OF PT AT 0715. PT IS A&OX4 AND VITAL SIGNS ARE STABLE. PT VISIBLY AGITATED AT START OF SHIFT AND HAD REMOVED DRESSING TO LEFT BKA. PT EDUCATED ABOUT LEAVING DRESSING INTACT TO MINIMIZE RISK OF INFECTION, PT VERBALIZED UNDERSTANDING. PT CONTINUES TO REFUSE MEDICATIONS FOR PAIN AND AGITATION DUE TO PAST REPORTS OF HALLUCINATIONS. PSYCHYATRY CONSULTED AND ON-CALL VISITED PT. PT REPORTED SOB AT APPROXIMATELY 1200 AND O2 WAS 100% ON ROOM AIR. PT REQUESTED BREATHING TX AND NEPHROLOGY ORDERED CHEST X-RAY AND AFTER RECEIVING RESULTS ORDERED DIALYSIS FOR THIS SHIFT. DIALYSIS AT BEDSIDE THIS AFTERNOON, BLOOD PRESSURE MEDICAITONS HELD PER REQUEST OF DIALYSIS NURSE. DIALYSIS NURSE ALSO REQUESTED THAT WARFRIN BE HELD UNTIL APPROXIMATELY 0000 IF NOT ACTIVELY BLEEDING FROM FISTULA, NIGHT NURSE NOTIFIED DURING REPORT. PT REFUSES TO WEAR AMPU SHIELD THIS SHIFT, DESPITE EDUCATION ABOUT NEED. DIALYSIS FISTULA TO THE LUE BRUIT AND THRILL NOTED DURING ASSESSMENT. FALL PREACAUTIONS IN PLACE AND NURSING WILL CONTINUE TO MONITOR.
--- NOTE | 2018-11-22 00:44 | NUR ---
ASSESSMENT; PT TOLERATED DIALYSIS WELL. 3.5 LITERS WAS REMOVED. PT STATED THAT HE IS BREATHING BETTER. REMINDED PT OF 1500 FLUID RESTRICTION. WAS AT THE BEDSIDE EARLIER DURING THE SHIFT. 2 LITERS PER NC APPLIED WITH PAPER TAPE TO FACE PER PT'S REQUEST SO THAT IT WOULD NOT COME OFF WHILE ASLEEP. DENIES PAIN, SOB AND N/V. VSS, AFEBRILE. COUMADIN GIVEN, PT/INR SCHEDULED FOR AM. LEFT BKA WITH DRESSING AND STUMP RETAIL CLIENT MANAGER C/D/I. HYDRALAZINE GIVEN AT 220. LEFT UA FISTULA NOTED WITH + BRUT AND THRILL, NO SIGNS OF BLEEDING POST DIALYSIS. SLOW PROGRESS TOWARDS DC GOALS, WILL CONTINUE TO MONITOR.
[2018-11-22 05:23] LABS: INR 2.7; PROTIME 28.1 Seconds (9.3-11.4)
[2018-11-22 05:59] VITALS: BP 163/85
[2018-11-22 07:45] VITALS: BP 139/88
--- NOTE | 2018-11-22 08:50 | NUR ---
ASSUMED CARE AT 0700. PATIENT IS ALERT AND ORIENTED X4. PATIENT CAMPBELL'S, BUT PATIENT HAS LEFT BKA. LUNGS ARE CLEAR AND DEMINISHED. ABD IS SOFT WITH BSX4. PATIENT DOES NOT VOID R/T PATIENT BEING ON DIALYSIS. PATIENT HAS LEFT UPPER ARM FISTULA FOR DIALYSIS ACCESS. STUMP CLOTH MERCERIZER BACK TENDER ON AND IN PLACE. FALL AND SAFETY PROTOCOLS IN PLACE. DENIES ANY PAIN AT THIS TIME. CONTINUES TO PROGRESS TOWARDS D/C GOALS. WILL CONTINUE TO MONITER.
--- NOTE | 2018-11-22 10:04 | NUR ---
PATIENT NOTED TO HAVE ABRASION BELOW THE BEND OF HIS LEFT BKA. BARRIER CREAM APPLIED. WILL KEEP TYPESETTING SUPERVISOR BELOW THIS ABRASION.
[2018-11-22 20:00] VITALS: BP 143/67
--- NOTE | 2018-11-23 02:00 | NUR ---
ASSESSMENT: PT REMAIN ALERT AND ORIENT TIMES THREE. FORGETFUL AT TIMES. UP IN WC WITH GB TO BR TIMES TWO. BM'S TIMES TWO, LOOSE. C/O LEFT LEG PAIN. PRN PAIN MEDICATION GIVEN WITH GOOD RELIEF. 02 AT 2 LITERS PER NC. BLOOD PRESSURE TRENDING DOWNWARD WITH BP MEDICATIONS. TOLERATING PO INTAKE. PT WITHIN FR OF 1500 THIS SHIFT. PT SLEPT DURING THE NIGHT. DID WELL WITH TRANSFERS TO TOILET AND BACK TO BED. SLOW PROGRESS TOWARDS DC GOALS, WILL CONTINUE TO MONITOR.
[2018-11-23 05:28] LABS: INR 3.8; PROTIME 39.4 Seconds (9.3-11.4)
[2018-11-23 08:00] VITALS: BP 137/70
--- NOTE | 2018-11-23 09:03 | NUR ---
ASSUMED CARE AT 0700. PATIENT IS ALERT AND ORIENTED X4. PATIENT HAS LEFT BKA. WITH STUMP RESTAURANT LINE SERVER ON. PATIENT LUNGS ARE CLEAR. ABD IS SOFT WITH BSX4. PATIENT IS ON HEMODIALYSIS //SAT. PATIENT HAS LEFT UPPER ARM FISTULA THAT HAS GOOD THRILL AND BRUIT. FALL AND SAFETY PROTOCOLS IN PLACE. DENIES PAIN AT THIS TIME. CONTINUES TO PROGRESS TOWARDS D/C GOALS. WILL COINTINUE TO BERNARDO.
[2018-11-23 20:13] VITALS: BP 144/82
--- NOTE | 2018-11-24 01:58 | NUR ---
ASSUMED CARES AT 1900. PT AWAKE, ALERT AND ORIENTED*4. FORGETFUL. RESTLESS, TOSSING AND TURNING ALL NIGHT LONG. SIGHING AND GROANING LOUDLY IN HIS SLEEP. DENIES PAIN. DRESSING ON LEFT BKA STUMP REMAINS INTACT AND DRY. O2 2L AT BEDTIME, PT KEPT REMOVING IT. UP WITH SLIDE BOARD ASSIST, GAITBELT AND TOLERATED WELL. Q1H VISUAL CHECKS. CALL LIGHT WITHIN REACH. FALL PRECAUTIONS IN PLACE
[2018-11-24 06:43] LABS: HEMATOCRIT 22.3 % (42.0-52.0); PLATELET COUNT 269 thou/uL (150-400)
[2018-11-24 06:44] LABS: HEMOGLOBIN 7.2 gm/dL (14.0-18.0); MCH 27.7 pg (26.0-34.0); MCHC 32.2 g/dL (28.0-37.0); RDW 17.9 % (10.5-14.5); WBC 6.4 thou/uL (4.0-11.0)
[2018-11-24 06:50] LABS: INR 3.2; PROTIME 32.8 Seconds (9.3-11.4)
[2018-11-24 06:54] LABS: ALBUMIN 2.4 g/dL (3.4-5.0); CALCIUM 9.9 mg/dL (8.5-10.1); CREATININE 5.8 mg/dL (0.7-1.3); MAGNESIUM 1.9 mg/dL (1.8-2.4); PHOSPHORUS 3.5 mg/dL (2.5-4.9)
[2018-11-24 07:35] VITALS: BP 161/74
[2018-11-24 07:52] LABS: ABSOLUTE NEUTROPHILS 4.4 thou/uL (1.4-8.2); ANISOCYTOSIS 1+; OVALOCYTES FEW
--- NOTE | 2018-11-24 16:41 | NUR ---
DISCHARGE PLANNING: PT REQUESTED TO SPEAK TO REESE HOFFMAN REGARDING DISCHARGE PLAN FOR HOME HEALTH. HE STATED THAT HE WANTED TO CHOOSE THE COMPANY THAT HIS NEICE WORKS FOR, HE FEELS HIS NEICE WOULD BE VERY RELIABLE. HE CANNOT REMEMBER THE NAME OF THE COMPANY, BUT HE PLANS TO CONTACT HIS FAMILY TO GET THIS FOR THE CM BY TOMORROW. PT STATED THAT HIS FAMILY HAS A BIG GATHERING THIS WEEKEND, AND THAT HE WANTS TO BE THERE. HE IS REQUESTING TO BE DISCHARGED ON SATURDAY IF THE TEAM FEELS HE WOULD BE SAFE TO DO SO.
[2018-11-24 17:25] VITALS: BP 160/83
[2018-11-24 19:30] VITALS: BP 150/83
--- NOTE | 2018-11-24 19:54 | NUR ---
PATIENT ALERT AND ORIENTED AND COOPERATIVE WITH PLAN OF CARE. PATIENT MAINTAINED FLUID RESTRICTION AND ROOM AIR DURING DAY AND AWARE OF DIETARY RESTRICTIONS.
--- NOTE | 2018-11-24 19:57 | HC ---
[facility] [place] [address] CONSULTATION Name: ROWENA SOSA Room #: 504-1 ADM IN M.R.#: [id number] Admission: 11/17/18 Attend Phys: Jared Serna MD Discharge: Date of : 62 Report #: [id number] THIS REPORT FOR: //name// CC: Jared Soria DATE OF SERVICE: 11/19/2018 WOUND CARE CONSULTATION PERSONAL PHYSICIAN: Dr. Jared Serna. CHIEF COMPLAINT: Left wjbnw-gik-sgiv amputation, surgical wound. HISTORY OF PRESENT ILLNESS: This is a 58-year-old black male who underwent a left txvrt-ytq-xdna amputation on 11/12/2018 secondary to gangrene of his left foot. We have been following the patient for his chronic foot wound that had failed previous partial amputation of the foot. The patient now is on the rehab floor and we have been asked to continue to follow him for the surgical wound on his left fescf-kbv-falh amputation. The patient denies any other associated wounds. The patient states he has essentially no pain in the surgical wound. PAST MEDICAL HISTORY: Significant for end-stage renal disease, on hemodialysis; cardiomyopathy with ejection fraction of 30%; diabetes mellitus; CVA; peripheral arterial disease; restless leg syndrome. CURRENT MEDICATIONS: Multiple, I reviewed the patient's medication list. DRUG ALLERGIES: None. SOCIAL HISTORY: The patient smokes electronic cigarettes, does not drink alcohol. FAMILY HISTORY: Not pertinent to current medical condition. REVIEW OF SYSTEMS: CONSTITUTIONAL: The patient denies fevers or chills. NEUROLOGIC: The patient complains of mild generalized weakness, but no isolated weakness in arms or legs. EYES: No complaints. ENT: No complaints. CARDIAC: The patient denies chest pain, palpitations, peripheral edema. RESPIRATORY: The patient denies shortness of breath, cough or wheezes. GASTROINTESTINAL: The patient denies nausea, vomiting, abdominal pain. GENITOURINARY: The patient denies urgency or frequency. MUSCULOSKELETAL: No complaints. [facility] [address] [place] [address] CONSULTATION Name: ROWENA SOSA Room #: 504-1 ADM IN ..#: [id number] Admission: 11/17/18 Attend Phys: Jared Serna MD Discharge: Date of : 62 Report #: [id number] SKIN: The patient has a surgical wound in the left yssjy-tmu-uyyq amputation. PHYSICAL EXAMINATION: VITAL SIGNS: Temperature 36.9, pulse 79, respirations 22, BP 161/74. GENERAL: This is an alert and oriented x 3, pleasant black male who is in no obvious distress. HEENT: Normocephalic, atraumatic. Mucous membranes are moist. Pupils are round. Sclerae white. NECK: Supple, nontender. LUNGS: Clear. HEART: Regular. ABDOMEN: Soft, nontender. EXTREMITIES: The patient moves all extremities spontaneously. Evaluation of left rztxs-rel-axmc amputation reveals surgical wound, which is clean, dry and intact without signs of infection. [place] are in place. Right lower extremity shows no signs of any ulcerations. NEUROLOGIC: Cranial nerves 2-12 grossly intact. Motor and sensory grossly intact. LABORATORY DATA: White count 4.6, hemoglobin 7.1, albumin 2.4. IMPRESSION: 1. Left ijnho-jeo-rlbu amputation, surgical wound intact. 2. History of peripheral arterial disease. 3. Diabetes mellitus. 4. History of gangrene, left foot, which led to ovrff-syx-nvqx amputation. 5. Protein-calorie malnutrition - severe, albumin 2.4. 6. Generalized debility. PLAN: At this time, we will keep the silver alginate to the incisional site of the lbalk-tkn-azco amputation, change daily. We will encourage physical and occupational therapy for strengthening. We will maximize the patient's oral protein supplementation for healing. We will continue all other current medications and continue to follow the patient while she is here. <ELECTRONICALLY SIGNED> By: Greg Amador MD 11/24/18 [id number] Greg Amador MD /nt
--- NOTE | 2018-11-25 02:35 | NUR ---
ASSUMED CARES AT 1900. PT AWAKE, ALERT AND ORIENTED*4. VERY RESTLESS AND IMPULSIVE. HAS A HARD TIME FALLING ASLEEP. INCREASED DOSE OF MELATONIN ADMINISTERED AT 2100 PLUS BENADRYL BUT STILL HAD TROUBLE FALLING ASLEEP. MAINTAINED NC ALL NIGHT WITH O2 AT 2L. DENIES PAIN. VITALS STABLE FOR THIS PT. DRESSING ON STUMP REMAINS INTACT, SMALL AMOUNT OF SEROUSANGUINOUS DRAINAGE NOTED. FLUID REST. MAINTAINED. PT UP WITH 1 MIN ASSIST AND SLIDE BOARD AND TOLERATED WELL. Q1H VISUAL CHECKS. CALL LIGHT WITHIN REACH. FALL PRECAUTIONS IN PLACE
[2018-11-25 04:48] VITALS: BP 154/77
[2018-11-25 06:24] LABS: INR 2.5; PROTIME 25.7 Seconds (9.3-11.4)
[2018-11-25 08:47] VITALS: BP 144/58
--- NOTE | 2018-11-25 11:44 | NUR ---
INCISION CARE: INCISION IS INTACT WITH SHANTE, NO REDNESS NOTED. DRESSING CHANGED, AND MILD TO MODERATE AMOUNT OF SEROSANGUINOUS DRAINAGE NOTED ON OLD DRESSING, SLIGHT OOZING OF SEROSANG DRAINAGE NOTED AT MID-NCISION, BUT NO OPEN AREAS AND WELL-APPROXIMATED. REDRESSED WITH XEROFORM GAUZE, 4X4, AND KERLEX. JERICHO Pelletier OT, APPLIED STUMP TEST DESK SUPERVISOR OVER THE DRESSING, NO TAPE TO SKIN. PT TOLERATED WELL.
--- NOTE | 2018-11-25 12:09 | H ---
[facility] [place] [address] HISTORY AND PHYSICAL Name: ROWENA SOSA Room #: 504-1 ADM IN M.R.#: [id number] Admission: 11/17/18 Attend Phys: Jared Serna MD Discharge: Date of : 62 Report #: [id number] THIS REPORT FOR: //name// CC: Jared Soria DATE OF SERVICE: 11/17/2018 HISTORY AND PHYSICAL AND POST-ADMISSION PHYSICIAN EVALUATION HISTORY OF PRESENT ILLNESS: The patient is a 58-year-old -Bangladeshi male originally admitted to [facility] on 11/12/2018 with gangrene of his left foot. He underwent a left below-knee amputation on 11/12/2018. He has multiple medical comorbidities. He is a dialysis patient, was monitored regarding anemia. He has cardiomyopathy. He was felt to be medically stabilized and has now been admitted for acute in-hospital inpatient rehabilitation. PAST MEDICAL HISTORY: Includes end-stage renal disease, on hemodialysis. Cardiomyopathy with an ejection fraction of 30%, diabetes mellitus, which has been diet controlled, prior attempt of a fifth toe amputation, which eventually developed gangrene. History of CVA, on chronic anticoagulation. Obstructive sleep apnea, peripheral arterial disease, restless leg syndrome, and insulin-dependent diabetes mellitus. MEDICATIONS: Please see the full medication listing. ALLERGIES: No known drug allergies. PAST SURGICAL HISTORY: Right toe amputation, coronary stenting, two coronary stents, fistula for dialysis and below knee amputation. HABITS: History of E-cigarette usage. SOCIAL HISTORY: Lives in an apartment with his . 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 He does have involved family members. No stairs in. REVIEW OF SYSTEMS: No chest pain, shortness of breath, abdominal discomfort. PHYSICAL EXAMINATION: GENERAL: A 58-year-old -Bangladeshi male in no obvious distress. VITAL SIGNS: Last recorded temperature 98.1, pulse 80, respirations 18, and blood pressure 171/89. HEENT: Facies appeared symmetric. He is appropriate. Appears somewhat forgetful, cooperative. [facility] [address] [place] [address] HISTORY AND PHYSICAL Name: ROWENA SOSA Room #: 504-1 [facility] IN M.R.#: [id number] Admission: 11/17/18 Attend Phys: Jared Serna MD Discharge: Date of : 62 Report #: [id number] CHEST: Sounded clear to auscultation. CARDIOVASCULAR: Regular rate and rhythm. ABDOMEN: Bowel sounds positive, nontender. GENITOURINARY AND RECTAL: Deferred. EXTREMITIES: Functional range of motion of the upper extremity strength is grade 4-/5. DTRs are trace to 1. In his lower extremities, left lower extremity was dressed, post the below-knee amputation. Proximal strength is probably grade 3+/5. Right lower extremity strength is probably a grade 3+ to 4-/5. Functionally, he has needed assistance for basic transfers more of a moderate assistance bed to wheelchair. ASSESSMENT: 1. Left distal lower extremity gangrene, now status post below-knee amputation on 11/12/2018. 2. End-stage renal disease. 3. Coronary artery disease with prior myocardial infarction and coronary stenting. 4. Cardiomyopathy. 5. Diet controlled diabetes. 6. Obstructive sleep apnea. 7. Prior history of cerebrovascular accident, on chronic anticoagulation. 8. Obstructive sleep apnea. PLAN: The patient is admitted for acute in-hospital inpatient rehabilitation. From a postadmission physician evaluation perspective, there are no relevant changes since the preadmission screening. Please see the above review of prior and current medical and functional conditions and comorbidities. Please see the patient's previous and current functional status. As far as risk of complications, the patient has multiple medical comorbidities as noted above. The initial plan of care involves the interdisciplinary acute inpatient rehabilitation program with the goal of maximizing his functional independence, so that he can hopefully return back to his prior living situation. Measurable functional goals would be for him to become modified independent with transfers, mobility and ADLs, so he can hopefully return back to his home setting. Prognosis is reasonably good with estimated length of stay probably at least 10 days to 2 weeks and likely longer as warranted. Our goal is to get him modified independent at least at the wheelchair level with transfers. We will be fitting him with an Ampushield to help with protection. To continue with dressing changes every other day as per Orthopedics. We will have the wound care nurse assist. The patient meets diagnostic criteria for an acute in-hospital inpatient rehabilitation stay. He meets the medical necessity criteria and we will have the senior wind energy consultant physicians continue to follow. He does have the tolerance for therapies and has appropriate discharge goals back to the home setting. [address] [address] HISTORY AND PHYSICAL Name: ROWENA SOSA Room #: 504-1 ADM IN M.R.#: [id number] Admission: 11/17/18 Attend Phys: Jared Serna MD Discharge: Date of : 62 Report #: [id number] ADDENDUM: The patient was seen later yesterday. <ELECTRONICALLY SIGNED> By: Jared Serna MD 11/25/18 1209 [id number] 0930 Jared Serna MD /nt
--- NOTE | 2018-11-25 12:09 | PLAN ---
[facility] [place] [address] REHAB UNIT PLAN OF CARE Name: ROWENA SOSA Room #: 504-1 ADM IN M.R.#: [id number] Admission: 11/17/18 Attend Phys: Jared Serna MD Discharge: Date of : 62 Report #: [id number] THIS REPORT FOR: //name// CC: Jared Soria DATE OF SERVICE: 11/19/2018 PROGRESS NOTE/OVERALL PLAN OF CARE SUBJECTIVE: The patient is seen back today in followup. He feels a little groggy this morning. Temperature 98.3, pulse 73, respirations 18, and blood pressure 137/71. The patient is in no obvious distress. He has been working in therapies with transfers at a max assist sit to stand, max assist bed to wheelchair. He is unable to ambulate. In occupational therapy, lower body dressing is dependent. Per speech therapy, he is noted to have severe memory deficits. ASSESSMENT: 1. Left distal lower extremity gangrene, status post below-knee amputation, 11/12/2018. 2. End-stage renal disease. 3. Coronary artery disease with prior myocardial infarction and coronary stenting. 4. Cardiomyopathy with an ejection fraction of 30%, noted to be awaiting defibrillator placement. 5. Diabetes mellitus. 6. Obstructive sleep apnea. 7. Acute blood loss anemia. 8. Nausea and vomiting, noted yesterday. Appears resolved today. Demonstrating good appetite today. PLAN: The overall plan of care is based on the preadmission screen, post-admission physician evaluation and information gathered from therapy assessments. 1. Estimated length of stay is probably at least 10 days to 2 weeks and likely longer depending upon his functional progress. 2. Medical prognosis is reasonably good. 3. Anticipated interventions includes the interdisciplinary acute inpatient rehabilitation program. 4. Anticipated functional outcomes would be for the patient to become modified independent with transfers, mobility, ADLs, cognitive communication. 5. Discharge destination would be back to the home setting. 6. Expected therapy by discipline includes PT, OT and speech 1 hour per day each five days a week throughout the duration [place] [address] REHAB UNIT PLAN OF CARE Name: ROWENA SOSA Room #: 504-1 [facility] IN ..#: [id number] Admission: 11/17/18 Attend Phys: Jared Serna MD Discharge: Date of : 62 Report #: [id number] 7. The patient did miss some therapy on 11/18/2018 secondary to some nausea and vomiting. <ELECTRONICALLY SIGNED> By: Jared Serna MD 11/25/18 1209 [id number] 1321 Jared Serna MD /nt
--- NOTE | 2018-11-25 12:35 | NUR ---
team meeting, recommendation: 30 , hh ( pt, ot, st and nursing), numotion manual wheel chair, ampshield mod. to have family training with therapy. pt stated has friend who will help at home. cont with [facility].
--- NOTE | 2018-11-25 13:26 | NUR ---
DISCHARGE PLANNING. PATIENT DISCHARGING TO HOME ONCE MEDICALLY READY WITH HOME HEALTH SERVICES. REFERRAL FAXED TO [facility], CALL RECEIVED FROM [facility] INTAKE, KIRK STATES THAT [employer] DOES NOT CONTRACT WITH PATIENTS PROVIDER. UNIT CM NOTIFIED. CLINICAL INFORMATION FAXED TO [facility], [facility]IENTS [facility], MWF. FOLLOWING TO ASSIST WITH DISCHARGE NEEDS.
[2018-11-25 19:43] VITALS: BP 138/98
--- NOTE | 2018-11-25 20:27 | NUR ---
ASSUMED CARE OF PT AT 0715. PT IS A&OX4 AND VITAL SIGNS ARE STABLE. 1500ML FLUID RESTRICTION IN PLACE INTAKE OF 960 THIS SHIFT. DIALYSIS FISTULA TO THE [place] BRUIT AND THRILL NOTED ON ASSESSMENT. HEMODIALYS THIS SHIFT. PT RETURNED TO UNIT AT APPROXIMATELY 1800. FISTULA DRESSING IN PLACE, C/D/I AT THIS TIME. PER REPORT FROM DIALYSIS NURSE 3.5L OF FLUID REMOVED DURING DIALYSIS SESSION. IRON SUCROSE AND EPOETIN GIVEN BY DIALYSIS NURSE. NO REPORTS FOR SOB THIS SHIFT. PARTICIPATED IN SCHEDULED THERAPIES. FALL PRECAUTIONS IN PLACE AND NURSING WILL CONTINUE TO MONITOR.
--- NOTE | 2018-11-26 03:22 | NUR ---
PT ALERT AND ORIENTED X 4. LEFT BKA DRESSING C/D/I. LEFT ARM FISTULA WITH BRUIT AND THRILL. PT DENIES PAIN OR DISCOMFORT. CALLED APPROPRIATELY TO GO TO BATHROOM DURING THE NIGHT. BED ALARM ON FOR SAFETY. PT AWAKE MUCH OF NIGHT DESPITE MELATONIN AND BENDADRYL GIVEN AT HS.
[2018-11-26 06:19] LABS: INR 2.5; PROTIME 25.5 Seconds (9.3-11.4)
[2018-11-26 07:20] VITALS: BP 146/76
--- NOTE | 2018-11-26 12:12 | NUR ---
Following for d/c planning needs. Spoke with pt's spouse via phone. Spouse works daily 9:30-6. She has changed her schedule to work until 4 p.m. on Saturday. She has to work Saturday, or she will not be paid for holiday. Spouse said she wants to use [facility] for home health. Contacted national phone number for [facility], and they do not have services in [place] area. Called [facility] and was told that Na was in network with [facility] and [facility]. Called [facility] and they are no longer in network with insurance. Called [facility] and they are in network with insurance. Asked transit planner to fax referral. Spoke with PT and she will coordinate with OT and call spouse to arrange family training. Will remain available to assist as needed.
--- NOTE | 2018-11-26 13:20 | NUR ---
Nutrition: pt admitted S/P Left BKA due to diabetic foot wound. Seen for LOS. Hx of DM, ESRD, hemodialysis. Prior weights stable around 255# but most recent weight 225#. If accurate, likely related to amputation and fluid changes. Intake has been good, 100% of meals but refuses Nepro. Will D/C as pt has strong dislike of all supplements previously offered to him. Understands protein needs and orders meals. Encouraged 2 proteins/meal. On renal diet, 1500 mL Fluid restriction. Pt voiced no other needs. Place as low risk.
[2018-11-26 19:06] VITALS: BP 134/78
--- NOTE | 2018-11-26 19:58 | NUR ---
ASSUMED CARE OF PT AT 0715. PT IS A&OX4 AND VITAL SIGNS ARE STABLE. PT PARTICIPATED IN SCHEDULED THERAPIES. DRESSING TO LLE CHANGED, SITE IS WELL-APPROXIMATED, W/O REDNESS, DRAINAGE, EDEMA, OR WARMTH. DISCHARGE PLANNED FOR SATURDAY. ACCORDING TO PT PLANS ARE TO HAVE A PARTIAL SESSION OF DIALYSIS ON 11/27 AND AGAIN ON 11/27 PRIOR TO DISCHARGE. PT REQUESTING HOME O2 FOR NIGHTS DUE TO INTOLERANCE TO CPAP AT NIGHT. GUARD MUSEUM TO ORDER NIGHT O2 STUDY. FALL PRECAUTIONS IN PLACE AND NURSING WILL CONTINUE TO MONITOR.
--- NOTE | 2018-11-27 03:59 | NUR ---
ASSUMED CARE AT APPROX 1900 EVENING 11/26. PT SITTING UP IN BED AT CHANGE OF SHIFT. PT ALERT AND ORIENTED X4, APPROPRIATE SOMETIMES IMPULSIVE TURNING HIS BED ALARM OFF. ADVISED PT TO NOT TURN BED ALARM OFF. PT TOOK HS MEDS WITH WATER TOLERATING WELL. PT APPEARS TO BE SLEEPING OFF AND ON CALLING OUT IN HIS SLEEP AT TIMES. PT ON ROOM AIR AND CONT PULSE OX IN PLACE WITH SATS 92% AND GREATER. THIS GARDEN CENTER MANAGER TURNED BED ALARM BACK ON AND WILL CONTINUE TO MONITOR. CALL LIGHT IN REACH.
[2018-11-27 05:27] VITALS: BP 142/72
[2018-11-27 05:31] LABS: INR 2.3; PROTIME 24.4 Seconds (9.3-11.4)
[2018-11-27 07:40] VITALS: BP 157/85
--- NOTE | 2018-11-27 08:11 | NUR ---
PATIENT'S IN WITH PHYSICAL THERAPY THIS AM AND RECIEVED SOME INSTRUCTIONS THEN. SHE EXPRESSED CONCERNS WITH HER WORKING DURING THE DAY, AND PT NEEDING SOME ASSIST AT TIMES. SHE REQUESTED INFORMATION ABOUT THE TIMES AND DURATION OF HOME HEALTH, AND REQUESTED THAT THEY USE THE HH COMPANY THAT THEIR NEMIRZA WORKS FOR. PT'S IS AVAILABLE BY CELL PHONE, AND REQUESTED THAT EITHER DALTON Araya CM, OR ANETA RAYMUNDO PLEASE CALL HER ON HER CELL PHONE TODAY TO EXPLAIN WHAT SERVICED HH CAN PROVIDE. PT HAS TOLD AND NURSE THAT DR. LU IS PLANNING A SHORT HD SESSION TODAY AND TOMORROW, AND THAT HE WILL GO HOME AFTER THAT. NOTED TO BOTH PT AND THAT HD MAY MAKE HIM MORE TIRED, AND THAT HE MAY NEED MORE ASSIST ON THOSE DAYS. ABOVE NEEDS AND PLAN WERE MESSAGED TO REESE/[facility]ACK[facility] TEAM, AND FOLLOWED UP WITH TO LET HER KNOW TO EXPECT A CALL FROM THEM ONCE THINGS ARE ARRANGED. PT CURRENTLY WORKING WITH OT, NO C/O.
--- NOTE | 2018-11-27 10:34 | NUR ---
CM SPOKE WITH GARY ON PHONE CALL RT QUESTION ABOUT HOME CARE. " I WOULD LIKE THE WHOLE PERSON FOR HIS HH, I DID NOT KNOW HE WAS GOING TO BE HOME BY HIM SELF AND I HAVE TO WORK, SO WILL MAKE IT WORK AND IT IS IN GOD'S HANDS. I CAN GET HIM AFTER GET OFF WORK AROUND 4PM"/GARY. EDUCATION THAT WHOLE PERSON AND COMMUNITY BASED SERVICE ARE THROUGH MEDICAID AND PT NOT HAVE MEDICAID. " I WOULD LIKE TO SEE IF CAN IF NEEDS IT"/GARY. REFERRAL SENT TO [facility] TO FOLLOW UP WITH GARY. " THANK YOU FOR HELP AURE DOMINGUEZ IS OK ALSO I SPOKE WITH OTHER SW YESTERDAY THANK-YOU ALL"/GARY.
[2018-11-27 14:15] VITALS: BP 157/85
--- NOTE | 2018-11-27 19:55 | NUR ---
ASSUMED CARE OF PT AT 0715. PT IS A&OX4 AND VITAL SIGNS ARE STABLE. PT DENIED PAIN AND PARTICIPATED IN SCHEDULED THERAPIES. PT HAD SHORT DIALYSIS SESSION THIS SHIFT IN ROOM, PLANS FOR SECOND SHORT SESSION TOMORROW AFTERNOON PRIOR TO PLANNED DISCHARGE AFTER 1630. PT STATES THAT SHE WILL BE UNABLE TO SHUTTLE CAR OPERATOR PT UNTIL AFTER SHE IS RELEASED FROM WORK WHICH WILL NOT BE UNTIL APPROXIMATELY 1600. SURGICAL SITE TO LLE IS WELL APPROXIMATED WITH SHANTE, W/O DRAINAGE, REDNESS, WARMTH, OR EDEMA. COVERED WITH XEROFOAM, GAUZE SQUARES, KERLEX AND STUMP COMMUNITY DIRECTOR. PT ASKED QUESTIONS ABOUT HIS CARE AND HAD INTEREST IN MANAGING HIS OWN CARE. FALL PRECAUTIONS IN PLACE AND NURSING WILL CONTINUE TO MONITOR.
[2018-11-27 20:10] VITALS: BP 158/86
[2018-11-28 01:06] LABS: GLYCOHEMOGLOBIN (HGB A1C) 5.4 % (4.8-5.6)
--- NOTE | 2018-11-28 03:15 | NUR ---
PT ALERT AND ORIENTED X 4. UP TO W/C AND TO TOILET WITH PIVOT ASSIST X 1. LEFT BKA DRESSING C/D/I. LEFT ARM FISTULA BLEEDING AT START OF SHIFT. PRESSURE TO SITE FOR A FEW MINUTES THEN PRESSURE DRESSING APPLIED. PT DENIES PAIN OR DISCOMFORT. BED ALARM ON FOR SAFETY. PT CHECKED ON HOURLY ROUNDS.
[2018-11-28 05:11] LABS: INR 2.5; PROTIME 26.2 Seconds (9.3-11.4)
[2018-11-28 05:22] VITALS: BP 156/85
[2018-11-28 07:30] VITALS: BP 158/88
[2018-11-28] MEDS ORDERED: LORAZEPAM 0.50.5 M1 PO (08:04)
[2018-11-28] MEDS ORDERED: FOLIC ACID1 MG PO (08:06)
[2018-11-28] MEDS ORDERED: COUMADIN 5 MG TA5 M1 PO (08:06)
[2018-11-28] MEDS ORDERED: MELATONIN5 M1 PO (08:06)
[2018-11-28] MEDS ORDERED: MIRALAX17 GM PO (08:06)
[2018-11-28] MEDS ORDERED: PROCRIT20000 UNIT IV PUSH (08:06)
[2018-11-28 10:15] VITALS: BP 100/76
--- NOTE | 2018-11-28 11:48 | NUR ---
ASSUMED CARES AT 0700. PT AWAKE, ALERT AND ORIENTED*4. C/O PAIN LEFT LE, TRAMADOL ADMINISTERED NEEDED. PT HAD DIALYSIS THIS AM, 1.5L REMOVED. VITALS REMAIN STABLE. DRESSING ON LLE CHANGED, SITE CLEANED, DRAINAGE IS SEROUSANGUINOUS, SMALL AMOUNT. PT UP WITH SBA GAITBELT AND SLIDE BOARD AND TOLERATED WELL. TOLERATED ALL THERAPY WELL. PT TEACHING TO BE COMPLETED WITH PT UPON DC, PT PLANNING TO DISCHARGE THIS AFTERNOON. Q1H VISUAL CHECK. CALL LIGHT WITHIN REACH
--- NOTE | 2018-11-28 12:05 | NUR ---
[facility] ([facility], [facility] nursing), temporary numotion wheel chair. cont with outpt dialysis [facility] location. bear will pick him up later this afternoon when she gets off work.
[2018-11-28 12:21] VITALS: BP 157/85
--- NOTE | 2018-11-29 16:15 | HC ---
[facility] [place] [address] CONSULTATION Name: ROWENA SOSA Room #: 504-1 [facility] IN M.R.#: [id number] Admission: 11/17/18 Attend Phys: Jared Serna MD Discharge: 11/28/18 Date of : 62 Report #: [id number] THIS REPORT FOR: //name// CC: Jared Soria DATE OF SERVICE: 11/23/2018 ATTENDING PHYSICIAN: Jared Serna MD PLUGGER: Bay Wray, PhD CLINICAL PRESENTATION: The patient is a 58-year-old -D[place] male originally admitted to the [facility] on 11/12/2018 with gangrene of the left foot. He underwent a left ngsbj-gwz-mefx amputation on 11/12/2018 and developed multiple medical comorbidities. His comorbidities included dialysis, anemia, and cardiomyopathy. Once stabilized, he was admitted to the rehabilitation program. His assessment on the rehab unit includes left distal lower extremity gangrene, now status post ebsox-vls-ygap amputation, end-stage renal disease, coronary artery disease with prior myocardial infarction and coronary stenting, cardiomyopathy, diet-controlled diabetes, obstructive sleep apnea, prior history of cerebrovascular accident, on chronic anticoagulation and obstructive sleep apnea. A complete description of his medical condition and history can be found in his medical record. Neuropsychological consultation was requested to provide assistance in the assessment of cognitive and emotional status and to provide recommendations and services. Prior to this most recent admission, he reports having been living independently in his own home. The patient is and has 3 children. 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 However, he did require assistance from his in managing his medication. He does not report a history of treatment for mood or substance abuse disorder. TECHNIQUES UTILIZED: Clinical interview, review of medical records, staff consultation and behavioral observation, mini mental status exam 2 standard version, verbal fluency assessment. EXAMINATION FINDINGS: The patient was alert and cooperative with the assessment. He accurately described events surrounding his admission. There is no evidence of aphasia. He does not report auditory or visual hallucinations. There is no evidence of thought disorder. He does not report suicidal ideation. [address] [address] CONSULTATION Name: ROWENA SOSA Room #: 504-1 [facility] IN ..#: [id number] Admission: 11/17/18 Attend Phys: Jared Serna MD Discharge: 11/28/18 Date of : 62 Report #: [id number] He describes his symptoms to include longstanding difficulty with sleep. While diagnosed with sleep apnea, he has not been able to utilize a CPAP. He also reports anxiety and difficulty with memory. Difficulty with memory is described as having occurred following his stroke in 2016. Intermittent use of cannabis is described. His performance on the MMSE 2 brief version is within normal limits with a raw score of 15/16. He was 3/3 for initial registration, 4/5 for orientation to time, 5/[address] and 3/3 for immediate recall of 3 items after a brief time delay and distraction. Performance on the MMSE 2 standard version is within normal limits with a raw score of 28/30. He was 5/5 for serial sevens, 2/2 for naming, 1/1 for repetition, 3/3 for auditory comprehension. He could read and follow single command and write a sentence. The patient had difficulty in accurately copying a simple geometric design. Letter fluency was in the low average range with a raw score of 15, T score 38, percentile rank of 12. Category fluency was in the low average range with a raw score of 35, T score of 40, percentile rank of 16. Overall, total fluency was in the low average range with a raw score of 50, T score of 37th percentile, rank at 10. The patient appears to be presenting with mild decrease in cognition likely associated with executive functioning. He is alert and oriented. Mild anxiety is secondary to the amputation is suggested. 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 Unspecified anxiety disorder. RECOMMENDATIONS: The patient may benefit from increased assistance with activities of daily living upon his return home. Verbal praise and complements about participation in therapies along with assistance in recognizing improved independence will also be of benefit. His or family should attend appointments with healthcare providers to make sure that he is compliant with an understanding recommendations for adequate medical care. [address] [address] CONSULTATION Name: ROWENA SOSA Room #: 504-1 [facility] IN M.R.#: [id number] Admission: 11/17/18 Attend Phys: Jared Serna MD Discharge: 11/28/18 Date of : 62 Report #: [id number] Thank you very much for allowing me to provide the consultation on this patient. <ELECTRONICALLY SIGNED> By: Bay Wray, PhD 11/29/18 1615 1553 0024 Bay Wray, PhD /nt
== END 2018-11-28 13:59 | disposition home health service (06) | DRG 299 ==
PROVIDERS: Internal Medicine Nephrology; Nurse Practitioner; Nurse Practitioner Family; ADMIT Physical Medicine & Rehabilitation
PROC: 5A1D70Z Performance of Urinary Filtration, Intermittent, Less than 6 Hours Per Day (ICD-10-PCS; principal; 2018-11-20)
PROC: 5A1D70Z Performance of Urinary Filtration, Intermittent, Less than 6 Hours Per Day (ICD-10-PCS; 2018-11-27)
PROC: 5A1D70Z Performance of Urinary Filtration, Intermittent, Less than 6 Hours Per Day (ICD-10-PCS; 2018-11-28)
DX: E11.52 Type 2 diabetes mellitus with diabetic peripheral angiopathy with gangrene (principal); N18.6 End stage renal disease; E43 Unspecified severe protein-calorie malnutrition; I96 Gangrene, not elsewhere classified; I42.9 Cardiomyopathy, unspecified; D62 Acute posthemorrhagic anemia; I12.0 Hypertensive chronic kidney disease with stage 5 chronic kidney disease or end stage renal disease; M86.8X8 Other osteomyelitis, other site; I25.10 Atherosclerotic heart disease of native coronary artery without angina pectoris; E11.22 Type 2 diabetes mellitus with diabetic chronic kidney disease; G47.33 Obstructive sleep apnea (adult) (pediatric); R11.2 Nausea with vomiting, unspecified; F43.21 Adjustment disorder with depressed mood; G25.81 Restless legs syndrome; F41.1 Generalized anxiety disorder; R26.81 Unsteadiness on feet; F51.01 Primary insomnia; F17.210 Nicotine dependence, cigarettes, uncomplicated; G31.84 Mild cognitive impairment of uncertain or unknown etiology; E78.5 Hyperlipidemia, unspecified; J44.9 Chronic obstructive pulmonary disease, unspecified; E11.69 Type 2 diabetes mellitus with other specified complication; D63.8 Anemia in other chronic diseases classified elsewhere; R44.1 Visual hallucinations; Z95.5 Presence of coronary angioplasty implant and graft; I25.2 Old myocardial infarction; Z99.2 Dependence on renal dialysis; Z86.73 Personal history of transient ischemic attack (TIA), and cerebral infarction without residual deficits; Z79.01 Long term (current) use of anticoagulants; Z68.30 Body mass index [BMI] 30.0-30.9, adult; Z89.422 Acquired absence of other left toe(s); Z79.4 Long term (current) use of insulin
CPT/HCPCS: 10112; 32100

== ENCOUNTER 2018-12-03 12:06 | Emergency (ER) | payer OTHER ==
[~2018-12-03] VITALS: Ht 172.7 cm; Wt 99.8 kg
[~2018-12-03 12:06] MED LIST changes: +PROCRIT20000 UNIT IV PUSH
[2018-12-03 12:23] VITALS: BP 127/58
[2018-12-03 12:37] LABS: HEMOGLOBIN 7.3 gm/dL (14.0-18.0); MCHC 31.7 g/dL (28.0-37.0); MCV 88.2 fL (80.0-100.0); PLATELET COUNT 198 thou/uL (150-400); RBC 2.61 mil/uL (4.50-6.00); RDW 19.1 % (10.5-14.5); WBC 5.5 thou/uL (4.0-11.0)
[2018-12-03 12:47] LABS: CALCIUM 10.2 mg/dL (8.5-10.1); CREATININE 10.5 mg/dL (0.7-1.3); POTASSIUM 5.2 mmol/L (3.5-5.1)
[2018-12-03 12:51] LABS: ALBUMIN 2.7 g/dL (3.4-5.0); TOTAL BILIRUBIN 0.4 mg/dL (<0.1-1.0); TOTAL PROTEIN 7.5 g/dL (6.4-8.2)
[2018-12-03 13:01] LABS: ABSOLUTE NEUTROPHILS 4.2 thou/uL (1.4-8.2)
[2018-12-03 13:04] LABS: ANISOCYTOSIS 2+
[2018-12-03 13:05] LABS: OVALOCYTES 1+; SCHISTOCYTES FEW
== END 2018-12-03 14:36 | disposition home or self-care (01) ==
LOC: ER 12:06
PROVIDERS: Emergency Medicine
DX: R19.7 Diarrhea, unspecified (principal); I12.0 Hypertensive chronic kidney disease with stage 5 chronic kidney disease or end stage renal disease; N18.6 End stage renal disease; E11.22 Type 2 diabetes mellitus with diabetic chronic kidney disease; I25.2 Old myocardial infarction; G47.30 Sleep apnea, unspecified; E78.5 Hyperlipidemia, unspecified; F41.9 Anxiety disorder, unspecified; F17.210 Nicotine dependence, cigarettes, uncomplicated; Z86.73 Personal history of transient ischemic attack (TIA), and cerebral infarction without residual deficits; Z95.2 Presence of prosthetic heart valve; Z86.2 Personal history of diseases of the blood and blood-forming organs and certain disorders involving the immune mechanism; Z89.512 Acquired absence of left leg below knee

== ENCOUNTER → 2018-12-09 | Outpatient (CLI) | payer OTHER | LOC: RAD 14:21 | DX: J81.1 Chronic pulmonary edema (principal); I11.9 Hypertensive heart disease without heart failure ==

== ENCOUNTER 2018-12-17 07:53 | Emergency (ER) | payer OTHER ==
[~2018-12-17] VITALS: Ht 182.9 cm; Wt 113.4 kg
[2018-12-17 08:25] LABS: HEMATOCRIT 26.3 % (42.0-52.0); HEMOGLOBIN 8.3 gm/dL (14.0-18.0); MCH 28.7 pg (26.0-34.0); MCHC 31.7 g/dL (28.0-37.0); MCV 90.5 fL (80.0-100.0); RBC 2.9 mil/uL (4.50-6.00); RDW 21.6 % (10.5-14.5); WBC 4.6 thou/uL (4.0-11.0)
[2018-12-17 08:28] LABS: CALCIUM 10.5 mg/dL (8.5-10.1); CREATININE 7.9 mg/dL (0.7-1.3)
[2018-12-17 08:31] LABS: MAGNESIUM 2.3 mg/dL (1.8-2.4); PHOSPHORUS 4.8 mg/dL (2.5-4.9)
[2018-12-17 08:55] VITALS: BP 138/42
== END 2018-12-17 09:23 | disposition home or self-care (01) ==
LOC: ER 07:53
PROVIDERS: Emergency Medicine Emergency Medical Services
DX: I12.0 Hypertensive chronic kidney disease with stage 5 chronic kidney disease or end stage renal disease (principal); N18.6 End stage renal disease; G47.30 Sleep apnea, unspecified; E78.5 Hyperlipidemia, unspecified; F41.9 Anxiety disorder, unspecified; I25.2 Old myocardial infarction; F17.210 Nicotine dependence, cigarettes, uncomplicated; Z91.19 Patient's noncompliance with other medical treatment and regimen; Z89.421 Acquired absence of other right toe(s); Z89.512 Acquired absence of left leg below knee; Z86.2 Personal history of diseases of the blood and blood-forming organs and certain disorders involving the immune mechanism; Z99.2 Dependence on renal dialysis; Z86.73 Personal history of transient ischemic attack (TIA), and cerebral infarction without residual deficits

== ENCOUNTER 2018-12-23 21:00 | Emergency (ER) | payer OTHER ==
[~2018-12-23] VITALS: Ht 182.9 cm; Wt 111.1 kg
[2018-12-23] MEDS ORDERED: ATIVAN1 MG PO (21:28)
[2018-12-23] MEDS ORDERED: CALCIUM ACETAT667 MG (21:31)
[2018-12-23 22:35] VITALS: BP 173/91
== END 2018-12-23 22:35 | disposition home or self-care (01) ==
LOC: ER 21:00
DX: T87.81 Dehiscence of amputation stump (principal); I13.11 Hypertensive heart and chronic kidney disease without heart failure, with stage 5 chronic kidney disease, or end stage renal disease; N18.6 End stage renal disease; F41.9 Anxiety disorder, unspecified; E78.5 Hyperlipidemia, unspecified; G47.30 Sleep apnea, unspecified; F17.210 Nicotine dependence, cigarettes, uncomplicated; Z95.5 Presence of coronary angioplasty implant and graft; Z86.73 Personal history of transient ischemic attack (TIA), and cerebral infarction without residual deficits; Z86.2 Personal history of diseases of the blood and blood-forming organs and certain disorders involving the immune mechanism; Z89.512 Acquired absence of left leg below knee

== ENCOUNTER → 2018-12-24 | Outpatient (CLI) | payer OTHER ==
[~2018-12-24] MED LIST changes: +ATIVAN1 MG PO; +CALCIUM ACETAT667 MG
== END ==
LOC: HYPER 12-10 06:58
DX: T81.31XD Disruption of external operation (surgical) wound, not elsewhere classified, subsequent encounter (principal); E11.621 Type 2 diabetes mellitus with foot ulcer; L97.522 Non-pressure chronic ulcer of other part of left foot with fat layer exposed; K21.9 Gastro-esophageal reflux disease without esophagitis; R60.0 Localized edema; Z89.422 Acquired absence of other left toe(s); Z89.512 Acquired absence of left leg below knee; Z87.891 Personal history of nicotine dependence; Y83.8 Other surgical procedures as the cause of abnormal reaction of the patient, or of later complication, without mention of misadventure at the time of the procedure

== ENCOUNTER → 2018-12-25 | Outpatient (CLI) | payer OTHER ==
[2018-12-25 08:00] LABS: CREATININE 6.8 mg/dL (0.7-1.3)
== END ==
LOC: CAT 07:19
PROVIDERS: Family Medicine
DX: J84.10 Pulmonary fibrosis, unspecified (principal); I25.10 Atherosclerotic heart disease of native coronary artery without angina pectoris; I13.11 Hypertensive heart and chronic kidney disease without heart failure, with stage 5 chronic kidney disease, or end stage renal disease; N18.6 End stage renal disease; E11.22 Type 2 diabetes mellitus with diabetic chronic kidney disease

== ENCOUNTER → 2019-01-08 | Outpatient (CLI) | payer OTHER | LOC: HYPER 01-02 07:10 | DX: T87.81 Dehiscence of amputation stump (principal); E11.621 Type 2 diabetes mellitus with foot ulcer; L97.522 Non-pressure chronic ulcer of other part of left foot with fat layer exposed; L84 Corns and callosities; K21.9 Gastro-esophageal reflux disease without esophagitis; Z87.891 Personal history of nicotine dependence; Z89.422 Acquired absence of other left toe(s); Y83.5 Amputation of limb(s) as the cause of abnormal reaction of the patient, or of later complication, without mention of misadventure at the time of the procedure ==

== ENCOUNTER → 2019-02-11 | Outpatient (CLI) | payer OTHER | LOC: HYPER 08:30 | DX: T87.81 Dehiscence of amputation stump (principal); K21.9 Gastro-esophageal reflux disease without esophagitis; R60.0 Localized edema; Z87.891 Personal history of nicotine dependence; Z89.512 Acquired absence of left leg below knee; Y83.5 Amputation of limb(s) as the cause of abnormal reaction of the patient, or of later complication, without mention of misadventure at the time of the procedure ==

== ENCOUNTER → 2019-03-03 | Outpatient (CLI) | payer OTHER | LOC: HYPER 02:38 | DX: T87.81 Dehiscence of amputation stump (principal); K21.9 Gastro-esophageal reflux disease without esophagitis; R60.0 Localized edema; Z87.891 Personal history of nicotine dependence; Z89.512 Acquired absence of left leg below knee; Y83.5 Amputation of limb(s) as the cause of abnormal reaction of the patient, or of later complication, without mention of misadventure at the time of the procedure ==

== ENCOUNTER → 2019-04-06 | Outpatient (CLI) | payer OTHER | LOC: HYPER 13:02 | DX: T87.81 Dehiscence of amputation stump (principal); E11.622 Type 2 diabetes mellitus with other skin ulcer; L97.822 Non-pressure chronic ulcer of other part of left lower leg with fat layer exposed; K21.9 Gastro-esophageal reflux disease without esophagitis; R60.0 Localized edema; Z87.891 Personal history of nicotine dependence; Y83.5 Amputation of limb(s) as the cause of abnormal reaction of the patient, or of later complication, without mention of misadventure at the time of the procedure ==

== ENCOUNTER → 2019-07-15 | Outpatient (CLI) | payer OTHER | LOC: HYPER 08:38 | DX: T87.81 Dehiscence of amputation stump (principal); S60.031A Contusion of right middle finger without damage to nail, initial encounter; E11.622 Type 2 diabetes mellitus with other skin ulcer; L97.801 Non-pressure chronic ulcer of other part of unspecified lower leg limited to breakdown of skin; K21.9 Gastro-esophageal reflux disease without esophagitis; R41.3 Other amnesia; Z95.5 Presence of coronary angioplasty implant and graft; Z89.429 Acquired absence of other toe(s), unspecified side; W22.8XXA Striking against or struck by other objects, initial encounter; Y93.89 Activity, other specified; Y92.89 Other specified places as the place of occurrence of the external cause; Y99.8 Other external cause status; Y83.8 Other surgical procedures as the cause of abnormal reaction of the patient, or of later complication, without mention of misadventure at the time of the procedure ==

== ENCOUNTER → 2019-08-03 | Outpatient (CLI) | payer OTHER | LOC: HYPER 08:35 | DX: T87.81 Dehiscence of amputation stump (principal); E11.622 Type 2 diabetes mellitus with other skin ulcer; L98.491 Non-pressure chronic ulcer of skin of other sites limited to breakdown of skin; L97.821 Non-pressure chronic ulcer of other part of left lower leg limited to breakdown of skin; S60.021D Contusion of right index finger without damage to nail, subsequent encounter; S61.202D Unspecified open wound of right middle finger without damage to nail, subsequent encounter; R60.0 Localized edema; K21.9 Gastro-esophageal reflux disease without esophagitis; Z87.891 Personal history of nicotine dependence; X58.XXXD Exposure to other specified factors, subsequent encounter; Y83.5 Amputation of limb(s) as the cause of abnormal reaction of the patient, or of later complication, without mention of misadventure at the time of the procedure ==

== ENCOUNTER → 2019-08-05 | Outpatient (CLI) | payer OTHER | LOC: SJCVCIMAG 07:56 | DX: I70.208 Unspecified atherosclerosis of native arteries of extremities, other extremity (principal); I96 Gangrene, not elsewhere classified; F17.200 Nicotine dependence, unspecified, uncomplicated ==

== ENCOUNTER 2019-08-21 10:12 | Day surgery (SDC) | payer OTHER ==
[~2019-08-21] VITALS: Ht 182.9 cm; Wt 120.2 kg
--- NOTE | ~2019-08-21 | O ---
[facility] [place] [address] OPERATIVE REPORT Name: ROWENA SOSA Room #: 150-3 [facility] M..#: [id number] Admission: 08/21/19 Attend Phys: Claudia Schmitz, Discharge: Date of : 62 Report #: [id number] THIS REPORT FOR: cc: Roe Soria,Roe Wallace,Claudia Kruse MD ~ CC: Roe Schmitz DATE OF SERVICE: 08/21/2019 PREOPERATIVE DIAGNOSIS: Right long finger necrosis. POSTOPERATIVE DIAGNOSIS: Right long finger necrosis. PROCEDURE PERFORMED: Right long finger amputation through the proximal interphalangeal joint. SURGEON: Claudia Schmitz MD ANESTHESIA: General mask anesthesia. ESTIMATED BLOOD LOSS: 1 mL. TOURNIQUET TIME: 19 minutes. COMPLICATIONS: None. CONDITION: Stable. DISPOSITION: Recovery room. INDICATIONS: The patient is a 58-year-old male with the above-mentioned diagnosis. He elects for operative treatment. The risks, benefits, alternatives and complications were discussed including but not limited to inability to heal the wound, necessitating further surgery, infection, wound healing problems or stump pain. Informed consent was obtained. The correct extremity was identified and labeled by myself after verbal confirmation of the patient as well as visual confirmation and signed informed consent. DESCRIPTION OF PROCEDURE: The patient was brought to the operating room and placed on a supine position. He received preoperative antibiotics. Tourniquet was placed over padding on the patient's right upper extremity. The right upper extremity was sterilely prepped and draped in the usual fashion. Final timeout was taken to verify correct patient, operative procedure, operative site, all concurred. The arm was elevated, exsanguinated proximal to the wrist and the [address] [address] OPERATIVE REPORT Name: ROWENA SOSA Room #: 150-3 [facility].#: [id number] Admission: 08/21/19 Attend Phys: Claudia Schmitz, Discharge: Date of : 62 Report #: [id number] tourniquet inflated. Next, a volar flap was created just proximal to the DIP joint all the way down to the bone. This was transitioned over to the mid axial line on either side and then a dorsal incision was made just distal to the PIP joint. The dissection of the tendons were transected and the PIP joint was entered and the middle and distal phalanges were removed. Next, a rongeur was used to remove any cartilage from the distal aspect of the proximal phalanx. The area was thoroughly irrigated with a liter of antibiotic saline. Each of the digital nerve were identified and sharply transected proximal to avoid distal neuroma. The wound was then closed with 4-0 nylon suture using multiple detentioning type stitches. The tourniquet was deflated. There was nice color to the finger. The wound was dressed with Xeroform and sterile gauze. He was placed in a bulky dressing. All fingers were pink with brisk capillary refill at the conclusion of case after deflation of tourniquet. All sponge and needle counts were correct. The patient was transferred to postoperative recovery room in a stable condition. By: [id number] Claudia Schmitz MD /nt
[~2019-08-21 10:12] MED LIST changes: +COUMADIN 2 MG TA2 M1 PO; +LORAZEPAM 0.50.5 MG PO; +MELATONIN10 M3 PO; +PROCRIT10000 UNIT IV PUSH
[2019-08-21 11:21] LABS: CALCIUM 8.4 mg/dL (8.5-10.1); CREATININE 6.3 mg/dL (0.7-1.3); POTASSIUM 4.3 mmol/L (3.5-5.1)
[2019-08-21 11:22] LABS: INR 2.2; PROTIME 22.7 Seconds (9.3-11.4)
[2019-08-21 11:23] VITALS: BP 122/65
[2019-08-21 11:27] LABS: ALBUMIN 2.7 g/dL (3.4-5.0); TOTAL BILIRUBIN 0.3 mg/dL (<0.1-1.0); TOTAL PROTEIN 6.4 g/dL (6.4-8.2)
[2019-08-21 13:47] VITALS: BP 122/65
--- NOTE | 2019-08-22 10:57 | EKG ---
[facility] [place] [address] ELECTROCARDIOGRAM REPORT Name: ROWENA SOSA Room #: DEP [facility] M..#: [id number] Admission: 08/21/19 Attend Phys: Claudia Schmitz, Discharge: 08/21/19 Date of : 62 Report #: [id number] THIS REPORT FOR: cc: Roe Soria James A. DO Park, Jin S. 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1960 Requested By: Claudia Schmitz Order Number: [id number] MD: Mateo Blood Measurements Intervals Liberty Rate: 90 P: -1 MI: 237 QRS: -17 QRSD: 91 T: 121 QT: 374 QTc: 458 Interpretive Statements Sinus rhythm Prolonged MI interval Borderline left axis deviation Anterior infarct, old Nonspecific T abnormalities, lateral leads Compared to ECG 11/12/2018 10:36:15 First degree AV block now present T-wave abnormality now present Myocardial infarct finding still present Electronically Signed On 08-22-2019 10:55:16 CDT by Mateo Blood [email or web address] <ELECTRONICALLY SIGNED> By: Mateo Blood MD 08/22/195 49 49 Mateo Blood MD /EPI
--- NOTE | 2019-08-26 16:08 | PATH ---
[facility] [address] [place] [address] PATHOLOGY RPT PROCEDURE Name: BALJIT SULLIVAN Room #: DEP [facility] M.R.#: [id number] Admission: 08/21/19 Date of : 62 Discharge: 08/21/19 Report #: [id number] Path Case #: [id number] [facility] Accession Number: [id number] . 01 Material submitted: . finger - RIGHT LONG FINGER PARTIAL AMPUTATION. Modifiers: right, middle . 01 Clinical history: . Other skin changes, gangrene, not elsewhere classified Gangrenous right long finger . 02 Diagnosis: Finger, right long finger, partial amputation: - Skin and subcutaneous tissue associated with ulceration, as well as marked acute inflammation. - Skin and bone margin viable. (IUV:negrito; 08/26/2019) MBR 08/26/2019 1425 Local . 02 Electronically signed: . Maureen Castorena MD, Pathologist NPI- [id number] . 01 Gross description: . The specimen is received in formalin, labeled "Baljit Sullivan, right long finger partial amputation" and consists of a gangrenous disarticulated finger measuring 5.2 x 2.1 x 2.0 cm. The skin is necrotic at the tip which extends 0.5 cm from the skin soft tissue margin (inked black). 8 possible dark brown nail is present. The proximal bone margin is a smooth curry concave articular surface. Sectioning reveals the necrosis extends to the underlying bone. It Systems Administrator sections are submitted as follows: . A1: Skin soft tissue margin, perpendicular to include necrosis A2: Finger, longitudinal section distal A3: Finger, longitudinal section proximal A2 and A3 will be submitted following decalcification. (SDY; 08/25/2019) SYU/SYU 08/25/2019 1157 Local . 02 Pathologist provided ICD-10: L08.9, L98.499 . 02 CPT . 300326, 623377 Specimen Comment: A courtesy copy of this report has been sent to [phone], [phone] Specimen Comment: [phone] [place] [phone] PATHOLOGY RPT PROCEDURE Name: BALJIT SULLIVAN Room #: DEP [facility] Quiana.Krystian#: [id number] Admission: 08/21/19 Date of : 62 Discharge: 08/21/19 Report #: [id number] Path Case #: [id number] Specimen Comment: Report sent to / DR JACOBS Performed at: [address] [facility], [place], [place] [id number] MD Iron Pulido MD Phone: [phone] Performed at: [address] [facility] [id number] MD Maureen Castorena MD Phone: [phone]
== END 2019-08-21 15:47 | disposition home or self-care (01) ==
LOC: OR 10:12 → TBA 10:12 → GI 10:29 → EDSTATUS 11:44 → OR 11:48
PROVIDERS: Orthopaedic Surgery Hand Surgery
DX: M87.044 Idiopathic aseptic necrosis of right finger(s) (principal); L08.9 Local infection of the skin and subcutaneous tissue, unspecified; L98.499 Non-pressure chronic ulcer of skin of other sites with unspecified severity; I12.9 Hypertensive chronic kidney disease with stage 1 through stage 4 chronic kidney disease, or unspecified chronic kidney disease; E11.22 Type 2 diabetes mellitus with diabetic chronic kidney disease; N18.6 End stage renal disease; E78.5 Hyperlipidemia, unspecified; I25.2 Old myocardial infarction; G47.30 Sleep apnea, unspecified; F17.210 Nicotine dependence, cigarettes, uncomplicated; Z98.890 Other specified postprocedural states; Z79.899 Other long term (current) drug therapy; Z86.73 Personal history of transient ischemic attack (TIA), and cerebral infarction without residual deficits; Z79.4 Long term (current) use of insulin
CPT/HCPCS: 50010; 50101; 50386; 56526; 57006; 57091; 62110; 62900; 70005

== ENCOUNTER 2019-09-05 07:00 | Emergency (ER) | payer OTHER ==
[~2019-09-05] VITALS: Ht 182.9 cm; Wt 122.5 kg
[2019-09-05 07:02] VITALS: BP 145/79
[2019-09-05] MEDS ORDERED: CLOTRIMAZOLE 1%15 G1 TOP (07:30)
[2019-09-05] MEDS ORDERED: MUPIROCIN15 GM TOP (07:30)
== END 2019-09-05 07:50 | disposition home or self-care (01) ==
LOC: ER 07:00
DX: N47.6 Balanoposthitis (principal); I12.0 Hypertensive chronic kidney disease with stage 5 chronic kidney disease or end stage renal disease; N18.6 End stage renal disease; F17.210 Nicotine dependence, cigarettes, uncomplicated; E78.5 Hyperlipidemia, unspecified; I25.2 Old myocardial infarction; Z79.01 Long term (current) use of anticoagulants; Z79.82 Long term (current) use of aspirin; Z79.899 Other long term (current) drug therapy; Z86.73 Personal history of transient ischemic attack (TIA), and cerebral infarction without residual deficits; Z99.2 Dependence on renal dialysis

== ENCOUNTER → 2019-10-05 | Outpatient (CLI) | payer OTHER ==
[~2019-10-05] MED LIST changes: +CLOTRIMAZOLE 1%15 G1 TOP; +MUPIROCIN15 GM TOP
== END ==
LOC: HYPER 06:53
PROVIDERS: ATTEND Emergency Medicine Emergency Medical Services
DX: T87.81 Dehiscence of amputation stump (principal); E11.622 Type 2 diabetes mellitus with other skin ulcer; N48.5 Ulcer of penis; E11.621 Type 2 diabetes mellitus with foot ulcer; L97.521 Non-pressure chronic ulcer of other part of left foot limited to breakdown of skin; S60.021D Contusion of right index finger without damage to nail, subsequent encounter; R60.0 Localized edema; K21.9 Gastro-esophageal reflux disease without esophagitis; Z87.891 Personal history of nicotine dependence; X58.XXXD Exposure to other specified factors, subsequent encounter; Y83.5 Amputation of limb(s) as the cause of abnormal reaction of the patient, or of later complication, without mention of misadventure at the time of the procedure

== ENCOUNTER 2019-10-12 08:50 | Emergency (ER) | payer OTHER ==
[~2019-10-12] VITALS: Ht 182.9 cm; Wt 113.4 kg
[2019-10-12] MEDS ORDERED: NYSTATIN-TRIAMC15 GM TOP (10:44)
[2019-10-12] MEDS ORDERED: MUPIROCIN15 GM TOP (10:45)
[2019-10-12] MEDS ORDERED: NORCO 5-325 TA1 EAC2 PO (10:47)
[2019-10-12] MEDS ORDERED: LIDOCAINE5 GM TOP (10:47)
[2019-10-12 10:58] VITALS: BP 176/100
[2019-10-13 20:06] LABS: SYPHILIS AB Non Reactive (Non Reactive)
== END 2019-10-12 10:58 | disposition home or self-care (01) ==
LOC: ER 08:50
PROVIDERS: Emergency Medicine
DX: N48.89 Other specified disorders of penis (principal); I12.0 Hypertensive chronic kidney disease with stage 5 chronic kidney disease or end stage renal disease; E11.22 Type 2 diabetes mellitus with diabetic chronic kidney disease; N18.6 End stage renal disease; E78.5 Hyperlipidemia, unspecified; I25.2 Old myocardial infarction; F17.210 Nicotine dependence, cigarettes, uncomplicated; Z99.2 Dependence on renal dialysis; Z86.73 Personal history of transient ischemic attack (TIA), and cerebral infarction without residual deficits; Z79.82 Long term (current) use of aspirin; Z79.899 Other long term (current) drug therapy

== ENCOUNTER → 2019-11-04 | Outpatient (CLI) | payer OTHER ==
[~2019-11-04] MED LIST changes: +LIDOCAINE5 GM TOP; +NORCO 5-325 TA1 EAC2 PO; +NYSTATIN-TRIAMC15 GM TOP
== END ==
LOC: HYPER 08:18
PROVIDERS: ATTEND Emergency Medicine
DX: T87.81 Dehiscence of amputation stump (principal); E11.622 Type 2 diabetes mellitus with other skin ulcer; N48.5 Ulcer of penis; S30.812D Abrasion of penis, subsequent encounter; R60.0 Localized edema; K21.9 Gastro-esophageal reflux disease without esophagitis; Z87.891 Personal history of nicotine dependence; X58.XXXD Exposure to other specified factors, subsequent encounter; Y83.5 Amputation of limb(s) as the cause of abnormal reaction of the patient, or of later complication, without mention of misadventure at the time of the procedure

== ENCOUNTER → 2019-11-30 | Outpatient (CLI) | payer OTHER | LOC: HYPER 08:07 | PROVIDERS: ATTEND Emergency Medicine | DX: T87.81 Dehiscence of amputation stump (principal); E11.622 Type 2 diabetes mellitus with other skin ulcer; L98.491 Non-pressure chronic ulcer of skin of other sites limited to breakdown of skin; N48.5 Ulcer of penis; S60.021A Contusion of right index finger without damage to nail, initial encounter; S90.421A Blister (nonthermal), right great toe, initial encounter; S90.821A Blister (nonthermal), right foot, initial encounter; S30.812D Abrasion of penis, subsequent encounter; R60.0 Localized edema; K21.9 Gastro-esophageal reflux disease without esophagitis; Z87.891 Personal history of nicotine dependence; Z89.512 Acquired absence of left leg below knee; X58.XXXD Exposure to other specified factors, subsequent encounter; X58.XXXA Exposure to other specified factors, initial encounter; Y93.89 Activity, other specified; Y92.89 Other specified places as the place of occurrence of the external cause; Y99.8 Other external cause status; Y83.5 Amputation of limb(s) as the cause of abnormal reaction of the patient, or of later complication, without mention of misadventure at the time of the procedure ==

== ENCOUNTER 2019-12-23 10:03 | Inpatient (IN) | payer OTHER ==
[~2019-12-23] VITALS: Ht 182.9 cm; Wt 117.9 kg
[2019-12-23 10:08] VITALS: BP 150/93
[2019-12-23 10:44] VITALS: BP 150/93
[2019-12-23 10:53] LABS: HEMATOCRIT 33.4 % (42.0-52.0); HEMOGLOBIN 10.7 gm/dL (14.0-18.0); MCH 27.6 pg (26.0-34.0); MCHC 32.1 g/dL (28.0-37.0); MCV 85.9 fL (80.0-100.0); RBC 3.89 mil/uL (4.50-6.00); RDW 17.5 % (10.5-14.5); WBC 5.5 thou/uL (4.0-11.0)
[2019-12-23 11:04] LABS: CALCIUM 9.3 mg/dL (8.5-10.1); CREATININE 6.2 mg/dL (0.7-1.3); POTASSIUM 4.9 mmol/L (3.5-5.1)
--- NOTE | 2019-12-23 12:18 | NUR ---
ATTEMPTED TO CALL REPORT-SHARON SAID THEY DON'T KNOW WHO IS TAKING THE PT SO THEY WILL HAVE TO CALL BACK.
[2019-12-23 13:18] VITALS: BP 145/79
[2019-12-23 13:40] VITALS: BP 148/99
[2019-12-23 19:16] VITALS: BP 159/96
--- NOTE | 2019-12-23 19:46 | NUR ---
ASSUMED PT CARE THIS AFTERNOON. PT A&OX4, VITAL SIGNS STABLE. PT ACHS, BUT REFUSES INSULIN. PT WOUND PICTURES TAKEN. PT TRANSFERS WITH WHEELCHAIR, PIVOTS TO WHEELCHAIR. PT REFUSED TO USE URINAL, WANTED TO GO TO THE RESTROOM. PT HAS NO SKIN ISSUES. DRESSING PLACED ON WOUNDS, BED ALARM ON. NIGHT NURSE ENDORSED.
--- NOTE | 2019-12-24 04:58 | NUR ---
Assumed pt care at 1900. A/OX3-4,fussy restless on and off throughout the night medicated with ativan with some relief. VSS. C/o pain to right foot when trying to stand on it but declines need for pain meds. Up with AX1/Pivots to BSC; has a LBKA and gangrene on right toe with 5th toe amputated. Pt has oliguria,yellow urine noted. Dialysis pt T,R,S Fistula on LUE positive for bruit/thrill. CPAP in place for the night. Fall precautions in place. Pt unsure if to go ahead with amputation and awaiting to MRI. Will continue to monitor pt.
[2019-12-24 07:14] LABS: ABSOLUTE NEUTROPHILS 4.1 thou/uL (1.4-8.2); BASOPHILS 0.7 % (0.0-2.0); EOSINOPHILS 1.6 % (0.0-3.0); HEMATOCRIT 32.6 % (42.0-52.0); HEMOGLOBIN 10.3 gm/dL (14.0-18.0); LYMPHOCYTES 9.6 % (24.0-44.0); MCH 27.5 pg (26.0-34.0); MCHC 31.7 g/dL (28.0-37.0); MCV 86.6 fL (80.0-100.0); MONOCYTES 11.1 % (1.0-8.0); PLATELET COUNT 249 thou/uL (150-400); RBC 3.76 mil/uL (4.50-6.00); RDW 17.8 % (10.5-14.5); WBC 5.3 thou/uL (4.0-11.0)
[2019-12-24 07:23] VITALS: BP 175/104
[2019-12-24 07:26] LABS: INR 1.1; PROTIME 11.4 Seconds (9.3-11.4)
[2019-12-24 07:30] LABS: CALCIUM 9.2 mg/dL (8.5-10.1); MAGNESIUM 2.2 mg/dL (1.8-2.4); POTASSIUM 5.1 mmol/L (3.5-5.1)
[2019-12-24 07:34] LABS: CREATININE 8.1 mg/dL (0.7-1.3)
--- NOTE | 2019-12-24 13:58 | NUR ---
PT ADMITTED RELATED TO GANGRENE OF TOE. CM REVIEWED CHART AND SPOKE WITH CARE TEAM. CM CALLED AND SPOKE WITH PT OVER THE PHONE THIS AFTERNOON. HE APPEARED TO BE A&O X4. CM ROLE INTRODUCED. PT INDICATED HE LIVES IN AN APARTMENT WITH HIS WITH 4 STEPS TO ENTER AND A SUNKEN LIVING ROOM. PT INDICATED HE HAS A WHEELCHAIR, FWW, AND PROSTHESIS FOR HOME USE. PT INDICATED THAT HE GOES TO [facility] T,R,S 5:15 CHAIR TIME. PT INDICATED THAT HIS TAKES HIM TO DIALYSIS BUT THAT SHE ISN'T ABLE TO PROVIDE HIM TRANSPORT HOME. HE GETS HOME HOWEVER HE CAN. HE INQUIRED ABOUT [facility]. CM PRINTED HIM AN APPLICATION THAT COULD BE COMPLETED BY PCP AND PT. PT HAD BEEN ON 5N IN 2019 S/P L BKA. PT HAS USED [facility] NOT TOO LONG AGO AND WOULD LIKE TO USE THEM AGAIN IF HE NEEDS SERVICES. PT IS ON IV ABX AND IS HAVING AN MRI DONE TODAY. CM TO FOLLOW INDICATED WITH DC PLANNING.
[2019-12-24 15:39] VITALS: BP 151/90
--- NOTE | 2019-12-24 17:21 | NUR ---
Assumed pt care at 7am.Pt in bed getting ready for hemo dialysis this am. Am meds given with breakfast.Dr Howell and Sara here,order noted.Dialysis ended at 12noon.Per dx rn report,4liter of fluid was taken off today.Bp meds given with vanco iv post dialysis.Pt left for mri later this afternoon and return later.Dr Amador here and wound care order noted.Will continue to monitor.
[2019-12-24 21:05] VITALS: BP 136/84
[2019-12-25 05:42] LABS: INR 1.1; PROTIME 11.7 Seconds (9.3-11.4)
[2019-12-25 07:59] VITALS: BP 159/90
--- NOTE | 2019-12-25 08:02 | NUR ---
progress pt up with sba had 4 episodes of diarrhea onetime order for immdium obtained and given vss, pt refused night time accucheck. taking hydrocodone for pain in right great toe, pulled of drssing and applied his stump cover on foot pulse in right foot present but very weak and thready. pt sleeps and yells out in his sleep.
--- NOTE | 2019-12-25 11:11 | HC ---
[facility] [place] [address] CONSULTATION Name: ROWENA SOSA Room #: 457-P ADM IN M.R.#: [id number] Admission: 12/23/19 Attend Phys: Jesus Alberto Ruiz MD Discharge: Date of : 62 Report #: [id number] THIS REPORT FOR: cc: Roe Soria James A. DO Clymer, David J. MD ~ CC: Jesus Alberto Soria DATE OF SERVICE: 12/23/2019 CHIEF COMPLAINT: Ischemic right foot. HISTORY OF PRESENT ILLNESS: This 59-year-old gentleman with severe vascular disease, diabetes and other general medical problems, has experienced peripheral vascular problems in the past with a left below-knee amputation. He has had problems with ischemic change in the right foot and apparently has been seen at [facility] in the past. He is admitted today with progressive problems of ischemia involving the great toe. At the time of my evaluation, he notes that he is not at all interested in any sort of surgery and would not consent to any sort of an amputation, but was willing to at least talk with me about his current clinical presentation. The right foot is mildly puffy and somewhat sore in a diffuse fashion. The great toe appears to be mildly ischemic with a dry ulcer over the medial border of the toe and also medial border of the first metatarsal head region. He has poor movement and moderate discomfort with movement. There is also some generalized skin atrophy and tightness of the skin over the mid foot and some tenderness to palpation in this region. There is no fluctuance. Not any other findings which would clearly suggest abscess or fluid collection. X-rays have revealed no obvious fracture, no obvious bony destruction. MRI study of the foot is pending. I understand vascular studies are also pending, but I suspect it is unlikely that there are any vascular problems which would be improved with vascular surgery or stenting. Surely if there can be improvements made, then I would defer to the vascular surgeons with regard to that option. If there are no other treatments from vascular standpoint, then I think his options are either continue with conservative management and observation or consider amputation. At this point, he is reluctant to even discuss amputation and would not consent to any surgery. I think it is difficult to know whether amputation at the forefoot level would be likely to heal. It certainly looks as though his vascular supply is poor and the skin is somewhat atrophic, which makes me concerned that amputation at that level might only result in wound breakdown or infection. Therefore, if surgery is necessary, this might need to be at a below-knee level. I would suggest going ahead with MRI of the foot and we will await information from vascular studies to see what treatment options are available. I am happy to discuss these issues further with [place] [address] CONSULTATION Name: ROWENA SOSA Room #: 457-P ADM IN M.R.#: [id number] Admission: 12/23/19 Attend Phys: Jesus Alberto Ruiz MD Discharge: Date of : 62 Report #: [id number] his primary physicians as needed. For now, I will simply follow along with observation and discussion. <ELECTRONICALLY SIGNED> By: Jared aNvarro MD 12/25/19 1111 1759 2224 Jared Navarro MD /nt
--- NOTE | 2019-12-25 12:02 | NUR ---
CARE TEAM HAS INDICATED THAT THEY ANTICPATED THAT PT WILL BE HERE OVER THE WEEKEND. PT IS ANTICIPATED TO [facility] AN ANGIOPLASTY Saturday12/28/19. CM TO FOLLOW INDICATED WITH DC PLANNING.
--- NOTE | 2019-12-25 15:18 | NUR ---
Assumed pt care at 7am.Pt in bed very restless early this am.Ativan po given with relief.Assessment completed.vss but elevated bp noted.Dr Ruiz aware. Pt called this rn later this shift,wanted to dc home after dialysis in am. Dr Ruiz notified but wanted input from Dr Tin calixto.Dr Cosby here,wanted pt came back as outpt on next saturday for stent placement.Pain med given for rt foot pain with relief.Will continue to monitor.
[2019-12-25 15:27] VITALS: BP 151/90
[2019-12-25 20:15] VITALS: BP 152/90
[2019-12-26 07:42] VITALS: BP 136/88
[2019-12-26] MEDS ORDERED: VANCO 500500 MG/100 IV (10:38)
[2019-12-26 10:51] LABS: CHOLESTEROL 96 mg/dL (<200); HDL CHOLESTEROL 38 mg/dL (>40); LDL CHOLESTEROL 53 mg/dL (<100); TC:HDL 2.5 Ratio (Not establshd); TRIGLYCERIDE 29 mg/dL (<150); VLDL 6 mg/dL (<40)
[2019-12-26 11:00] VITALS: BP 136/88
--- NOTE | 2019-12-26 12:22 | NUR ---
Assumed pt care at 7am.Pt in bed alert and oriented to person and place. Assessment completed.vss.Pt sound congestedand diminished in bases.Bs swallow study done early this am and mechanical altered with nectar thick liquid recommended by speech therapist.Dr Finley here,order noted.Assisted pt with tray setup.Good appetite.Fall bundle in place for safety.Adequate u/o noted per urinal.Pt will be going for ct chest this afternoon.Will continue to monitor.
--- NOTE | 2019-12-26 13:45 | NUR ---
Assumed pt care at 7am.Pt in bed very worried about when he's going to have hemodialysis today.Rn paged and dx rn came around 830am. Am meds given. Assessment completed.vss.Pt c/o rt foot pain raqted 10/08 and pain med given prior to hemodialysis treatment.Dr Martínez and Aldo here,dc order noted. Dc summary compile and reviewed with pt . 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 Pt will dc home later today.Will continue to monitor.
[2019-12-27 05:36] LABS: GLYCOHEMOGLOBIN (HGB A1C) 6.1 % (4.8-5.6)
--- NOTE | 2019-12-28 07:20 | HC ---
[facility] [place] [address] CONSULTATION Name: ROWENA SOSA Room #: 457-P [facility] IN M.R.#: [id number] Admission: 12/23/19 Attend Phys: Jesus Alberto Ruiz MD Discharge: 12/26/19 Date of : 62 Report #: [id number] THIS REPORT FOR: cc: Roe Soria,Aaron White MD ~ CC: Jesus Alberto Soria DATE OF SERVICE: 12/23/2019 NEPHROLOGY CONSULTATION REASON FOR CONSULTATION: End-stage renal disease requiring hemodialysis. HISTORY OF PRESENT ILLNESS: This is a 59-year-old male with end-stage renal disease who has been a chronic hemodialysis patient for the past 2 years since 12/2017. He normally dialyzes on Saturday, , Saturday basis at [facility]. He dialyzed the day prior to admission to the hospital. He is due for dialysis tomorrow. End-stage renal disease is secondary to diabetes and hypertension. He dialyzes using a left upper arm fistula. He has been going to dialysis, although apparently he does sign off early, sometimes. He has moderately large fluid gains most of the time taking off 4-5 liters per treatment. He was admitted at this time with further wounds of his right great toe. These have been undergoing care by Dr. Greg Amador. He was seen at Dr. Amador office today and they were worse. The patient denies fevers, chills or sweats. He has already been given some broad-spectrum antibiotics. PAST MEDICAL HISTORY: Longstanding diabetes and hypertension. Also, extensive peripheral vascular disease. He had previous problems with the left foot and chronic wounds of that. He ended up with a left nvmqs-lbb-skng amputation in 10/2018. That had a breakdown and required a revision in 01/2019 done at [facility]. He tells me he has got a bit of a break down on that stump at this time, although it had previously fully healed. He also has a history of coronary artery disease with previous coronary artery stents. He has sleep apnea, but does not wear his CPAP. He has anemia of end-stage renal disease. ALLERGIES: No known medical allergies. MEDICATIONS: I am uncertain on his exact list of medications and he does not know all of them, we will have to get it from the dialysis unit. SOCIAL HISTORY: The patient has currently been living at home with care by his family. He previously had been in a care center and was doing much better. At [address] [address] CONSULTATION Name: ROWENA SOSA Room #: 457-P [facility] IN M.R.#: [id number] Admission: 12/23/19 Attend Phys: Jesus Alberto Ruiz MD Discharge: 12/26/19 Date of : 62 Report #: [id number] that time, he has declined since he has been back home over the past few months. REVIEW OF SYSTEMS: He says he gets some dyspnea on exertion. He has some pain in his foot. Denies much in the way of diabetic neuropathy. Denies nausea or vomiting, no change in bowel habits. He says he still passes a small amount of urine several times a day. PHYSICAL EXAMINATION: GENERAL: A 59-year-old male, in no acute distress at this time. He is awake, alert and oriented. VITAL SIGNS: Blood pressure 148/79, heart rate 79, temperature 97.6 degrees centigrade, oxygen saturation 96%. HEENT: Unremarkable. Oral mucosa is moist. NECK: Veins are not distended. CHEST: Clear bilaterally. HEART: Has a regular rate and rhythm. ABDOMEN: Somewhat obese, has active bowel sounds, is soft and nontender. EXTREMITIES: Show prior left tyvsc-kzq-fwtz amputation. There is a bit of wound in the mid portion of that incision that is still present. The right lower extremity shows ulcerations and some eschar involving the right great toe. He does not have dramatic amounts of surrounding erythema, no drainage. He has no pulses in the foot. He has dorsalis pedis, posterior pretibial. He has no ascending erythema of that leg. LABORATORY DATA: Sodium 137, potassium 4.9, chloride 99, bicarbonate 26, BUN 54, creatinine 6.2, glucose 110, calcium 9.3. White count 5.5, hemoglobin 10.7, hematocrit 33.4, platelets 253,000. ASSESSMENT: 1. End-stage renal disease. He is a chronic hemodialysis patient. He dialyzed on 12/12/2019, I will need to dialyze on 12/14/2019. We will schedule that to be done here in the hospital, approximating his usual outpatient orders. 2. Peripheral vascular disease with new and nonhealing lesions on his left great toe. He has had previous arteriography. He may need additional arteriography, I am not certain there is much we can do to improve this. Unfortunately, he may be heading towards amputation that matches one on his other leg. 3. Hypertension, moderately controlled. 4. History of coronary artery disease, no current symptoms. 5. Longstanding diabetes. PLAN: 1. I will schedule dialysis for tomorrow. [facility] [address] [place] [address] CONSULTATION Name: ROWENA SOSA Room #: 457-P [facility] IN .R.#: [id number] Admission: 12/23/19 Attend Phys: Jesus Alberto Ruiz MD Discharge: 12/26/19 Date of : 62 Report #: [id number] 2. Follow up on his labs. 3. We will continue with the care of this pleasant scott. <ELECTRONICALLY SIGNED> By: Aaron Ascencio MD 12/28/19 0720 [id number] [id number] Aaron Ascencio MD /nt
--- NOTE | 2019-12-28 08:11 | HC ---
[facility] [address] CONSULTATION Name: ROWENA SOSA Room #: 457-P [facility] IN M.R.#: [id number] Admission: 12/23/19 Attend Phys: Jesus Alberto Ruiz MD Discharge: 12/26/19 Date of : 62 Report #: [id number] THIS REPORT FOR: cc: Roe Soria,Claudio Marlow MD ~ CC: Jesus Alberto Soria DATE OF SERVICE: 12/24/2019 CHIEF COMPLAINT: Gangrenous changes to the right great toe. HISTORY OF PRESENT ILLNESS: This is a 59-year-old male patient admitted from the wound clinic with progressive gangrenous change to the right great toe over the past week or two. He stated it started as a blister. It is not painful for him. He is very anxious as he has already undergone blow-knee amputation on the left side. He is admitted for further aggressive evaluation and treatment. PAST MEDICAL HISTORY: Positive for end-stage renal disease, requiring dialysis. Diabetes mellitus, hypertension, cardiomyopathy with ejection fraction of 30, history of peripheral vascular disease. MEDICATIONS: Include hydralazine, carvedilol, lisinopril, aspirin, Coumadin, Procrit, lorazepam, melatonin. SOCIAL HISTORY: The patient has been a daily smoker despite recommendations to the contrary. He, however, states that he quit 1 month ago and has not smoked since. ALLERGIES: No known drug allergies. FAMILY HISTORY: Noncontributory. REVIEW OF SYSTEMS: CONSTITUTIONAL: The patient denies fever, chills, or weight loss. NEUROLOGICAL: The patient denies focal weakness. EYES: The patient denies visual changes, redness, or drainage. ENT: The patient denies earache, nasal drainage, sore throat. CARDIOVASCULAR: The patient denies chest pain, palpitations or diaphoresis. PULMONARY: The patient denies cough or shortness of breath. GASTROINTESTINAL: The patient denies nausea, vomiting, diarrhea or abdominal pain. ORTHOPEDIC: The patient notes the ulceration and gangrenous changes to the right great toe. Other systems in 14-point review of systems are negative. [facility] [address] [place] [address] CONSULTATION Name: ROWENA SOSA Room #: 457-P [facility] IN [facility].#: [id number] Admission: 12/23/19 Attend Phys: Jesus Alberto Ruiz MD Discharge: 12/26/19 Date of : 62 Report #: [id number] PHYSICAL EXAMINATION: VITAL SIGNS: At this time include temperature 36.9, pulse 86, respiratory rate 16, blood pressure 151/90. GENERAL: This is a somewhat chronically ill-appearing male patient who appears to be in mild discomfort. HEENT: Head normocephalic. Nose and throat are clear. NECK: Supple. LUNGS: Clear. ABDOMEN: Soft. Bowel sounds present. EXTREMITIES: Examination of the lower extremities demonstrates there is dry gangrene to the dorsal aspect of the right great toe. It is not tender. No odor or drainage at this time. NEUROLOGIC: The patient is alert and oriented and appropriate. LABORATORY DATA: Include sodium 135, potassium 5.1, chloride 98, CO2 of 25, BUN 66, creatinine 8.1, glucose 101. White blood cell count 5.3 with a hemoglobin of 10.3. Arterial Doppler demonstrates biphasic waveforms in the common femoral and triphasic waveforms in superficial femoral artery proximally, extensive calcified plaque is present. Popliteal artery waveforms become monophasic and remain monophasic throughout the posterior tibial artery and dorsalis pedis artery. This is of the right lower extremity. CLINICAL IMPRESSION: 1. Gangrenous change and ischemic right great toe. 2. Peripheral arterial disease. 3. Prior left below-knee amputation. 4. Diabetes mellitus. 5. End-stage renal disease, requiring hemodialysis. RECOMMENDATIONS: At this point in time, we will recommend Betadine and dry gauze. The patient is adamant about not having an amputation of his great toe. He is very worried that this will progress to a below-knee amputation and he will be a double amputee. I have reviewed the Doppler findings with Dr. Cosby, interventional radiologist and likely we will plan for angiography with hopes of percutaneous intervention, in the meantime, very conservative care with Betadine and dry gauze to preserve dry, stable and intact eschar. Continuation of this current medications, hemodialysis and nutritional support. The patient once again is insistent that he does not wish to have an amputation. He is also very clear that he has discontinued smoking finally and will remain a nonsmoker. I appreciate being asked to see the patient in consultation. <ELECTRONICALLY SIGNED> By: Claudio Amador MD 12/28/19 0811 [id number] [id number] Claudio Amador MD /nt
== END 2019-12-26 17:19 | disposition home or self-care (01) | DRG 299 ==
LOC: ER 10:03 → EROBS 11:34 → 4W 11:34
PROVIDERS: Emergency Medicine; Hospitalist; Nurse Practitioner; ADMIT Hospitalist; ATTEND Hospitalist
PROC: 5A09357 Assistance with Respiratory Ventilation, Less than 24 Consecutive Hours, Continuous Positive Airway Pressure (ICD-10-PCS; principal; 2019-12-25)
DX: E11.52 Type 2 diabetes mellitus with diabetic peripheral angiopathy with gangrene (principal); N18.6 End stage renal disease; I42.9 Cardiomyopathy, unspecified; I96 Gangrene, not elsewhere classified; I12.0 Hypertensive chronic kidney disease with stage 5 chronic kidney disease or end stage renal disease; R78.81 Bacteremia; L97.519 Non-pressure chronic ulcer of other part of right foot with unspecified severity; E11.621 Type 2 diabetes mellitus with foot ulcer; E11.69 Type 2 diabetes mellitus with other specified complication; D63.1 Anemia in chronic kidney disease; I25.10 Atherosclerotic heart disease of native coronary artery without angina pectoris; F41.9 Anxiety disorder, unspecified; E11.22 Type 2 diabetes mellitus with diabetic chronic kidney disease; G47.33 Obstructive sleep apnea (adult) (pediatric); E78.5 Hyperlipidemia, unspecified; Z86.73 Personal history of transient ischemic attack (TIA), and cerebral infarction without residual deficits; I25.2 Old myocardial infarction; Z89.421 Acquired absence of other right toe(s); Z89.512 Acquired absence of left leg below knee; Z79.899 Other long term (current) drug therapy; Z99.2 Dependence on renal dialysis
CPT/HCPCS: 10040; 32100

== ENCOUNTER → 2019-12-23 | Outpatient (CLI) | payer OTHER | LOC: HYPER 08:15 | PROVIDERS: ATTEND Emergency Medicine | DX: T81.31XD Disruption of external operation (surgical) wound, not elsewhere classified, subsequent encounter (principal); E11.622 Type 2 diabetes mellitus with other skin ulcer; N48.5 Ulcer of penis; S60.021D Contusion of right index finger without damage to nail, subsequent encounter; S30.812D Abrasion of penis, subsequent encounter; S90.421D Blister (nonthermal), right great toe, subsequent encounter; S90.821D Blister (nonthermal), right foot, subsequent encounter; L84 Corns and callosities; R60.0 Localized edema; E66.9 Obesity, unspecified; K21.9 Gastro-esophageal reflux disease without esophagitis; Z87.891 Personal history of nicotine dependence; Z89.512 Acquired absence of left leg below knee; Z68.34 Body mass index [BMI] 34.0-34.9, adult; X58.XXXD Exposure to other specified factors, subsequent encounter; Y83.8 Other surgical procedures as the cause of abnormal reaction of the patient, or of later complication, without mention of misadventure at the time of the procedure ==

== ENCOUNTER → 2019-12-30 | Outpatient (CLI) | payer OTHER ==
[~2019-12-30] VITALS: Ht 182.9 cm; Wt 113.4 kg
[~2019-12-30] MED LIST changes: +GLYCOLAX119 GM PO; +HYDRALAZINE 5050 MG PO; +JANTOVEN3 MG PO; +JANTOVEN5 MG PO; +VANCO 500500 MG/100 IV
[2019-12-30 07:16] VITALS: BP 138/87
== END | disposition home or self-care (01) ==
LOC: CATH 06:27
PROVIDERS: ATTEND Nuclear Medicine Nuclear Cardiology
DX: I70.238 Atherosclerosis of native arteries of right leg with ulceration of other part of lower leg (principal); L97.919 Non-pressure chronic ulcer of unspecified part of right lower leg with unspecified severity; I70.1 Atherosclerosis of renal artery; I12.0 Hypertensive chronic kidney disease with stage 5 chronic kidney disease or end stage renal disease; E11.22 Type 2 diabetes mellitus with diabetic chronic kidney disease; N18.6 End stage renal disease; D63.1 Anemia in chronic kidney disease; I25.2 Old myocardial infarction; I25.10 Atherosclerotic heart disease of native coronary artery without angina pectoris; G47.33 Obstructive sleep apnea (adult) (pediatric); Z98.890 Other specified postprocedural states; Z79.899 Other long term (current) drug therapy; Z79.82 Long term (current) use of aspirin; Z86.73 Personal history of transient ischemic attack (TIA), and cerebral infarction without residual deficits; Z87.891 Personal history of nicotine dependence

== ENCOUNTER → 2020-01-01 | Outpatient (CLI) | payer OTHER | LOC: HYPER 08:22 | PROVIDERS: ATTEND Emergency Medicine | DX: T87.81 Dehiscence of amputation stump (principal); E11.622 Type 2 diabetes mellitus with other skin ulcer; N48.5 Ulcer of penis; S60.021D Contusion of right index finger without damage to nail, subsequent encounter; S90.421D Blister (nonthermal), right great toe, subsequent encounter; S90.821D Blister (nonthermal), right foot, subsequent encounter; R60.0 Localized edema; E66.9 Obesity, unspecified; K21.9 Gastro-esophageal reflux disease without esophagitis; Z87.891 Personal history of nicotine dependence; Z68.34 Body mass index [BMI] 34.0-34.9, adult; X58.XXXD Exposure to other specified factors, subsequent encounter; Y83.5 Amputation of limb(s) as the cause of abnormal reaction of the patient, or of later complication, without mention of misadventure at the time of the procedure ==

== ENCOUNTER → 2020-01-08 | Outpatient (CLI) | payer OTHER | LOC: HYPER 08:05 | PROVIDERS: ATTEND Emergency Medicine Emergency Medical Services | DX: T87.81 Dehiscence of amputation stump (principal); E11.622 Type 2 diabetes mellitus with other skin ulcer; L97.821 Non-pressure chronic ulcer of other part of left lower leg limited to breakdown of skin; S90.421D Blister (nonthermal), right great toe, subsequent encounter; S90.821D Blister (nonthermal), right foot, subsequent encounter; S60.021D Contusion of right index finger without damage to nail, subsequent encounter; E11.621 Type 2 diabetes mellitus with foot ulcer; L97.511 Non-pressure chronic ulcer of other part of right foot limited to breakdown of skin; E11.52 Type 2 diabetes mellitus with diabetic peripheral angiopathy with gangrene; I96 Gangrene, not elsewhere classified; R60.0 Localized edema; K21.9 Gastro-esophageal reflux disease without esophagitis; Z87.891 Personal history of nicotine dependence; X58.XXXD Exposure to other specified factors, subsequent encounter; Y83.5 Amputation of limb(s) as the cause of abnormal reaction of the patient, or of later complication, without mention of misadventure at the time of the procedure ==

== ENCOUNTER → 2020-01-15 | Outpatient (CLI) | payer OTHER | LOC: HYPER 08:18 | PROVIDERS: ATTEND Emergency Medicine Emergency Medical Services | DX: T87.81 Dehiscence of amputation stump (principal); S90.424A Blister (nonthermal), right lesser toe(s), initial encounter; S90.821D Blister (nonthermal), right foot, subsequent encounter; S60.021D Contusion of right index finger without damage to nail, subsequent encounter; S90.421D Blister (nonthermal), right great toe, subsequent encounter; E11.622 Type 2 diabetes mellitus with other skin ulcer; N48.5 Ulcer of penis; K21.9 Gastro-esophageal reflux disease without esophagitis; Z87.891 Personal history of nicotine dependence; X58.XXXD Exposure to other specified factors, subsequent encounter; X58.XXXA Exposure to other specified factors, initial encounter; Y93.89 Activity, other specified; Y92.89 Other specified places as the place of occurrence of the external cause; Y99.8 Other external cause status; Y83.5 Amputation of limb(s) as the cause of abnormal reaction of the patient, or of later complication, without mention of misadventure at the time of the procedure ==

== ENCOUNTER → 2020-01-21 | Outpatient (CLI) | payer OTHER | LOC: LAB 09:38 | PROVIDERS: ATTEND Orthopaedic Surgery Foot and Ankle Surgery | DX: Z01.818 Encounter for other preprocedural examination (principal); Z20.828 Contact with and (suspected) exposure to other viral communicable diseases ==

== ENCOUNTER 2020-01-22 09:16 | Inpatient (IN) | payer OTHER ==
[~2020-01-22] VITALS: Ht 182.9 cm; Wt 113.4 kg
[2020-01-22] VITALS (10 sets, daily range): BP systolic 110–161; BP diastolic 43–93
--- NOTE | ~2020-01-22 | HC ---
[facility] [place] [address] CONSULTATION Name: ROWENA SOSA Room #: 448-P ADM IN M.R.#: [id number] Admission: 01/22/20 Attend Phys: Jonathan Lee MD Discharge: Date of : 62 Report #: [id number] THIS REPORT FOR: cc: Roe Soria James A. DO Al-Absi, Ahmed I. MD ~ REASON FOR CONSULTATION: End-stage renal disease. REASON FOR PRESENTATION: Post transmetatarsal amputation. HISTORY OF PRESENT ILLNESS: This is a very well-known patient to me. He is in end-stage renal disease, maintained on hemodialysis due to diabetes mellitus and hypertension. He is known also to have peripheral vascular disease. He had chronic right foot diabetic infection on wound and ended up with osteomyelitis. He was admitted last month for infected wounds and was managed with antibiotics. He did not respond to the medical therapy and was admitted yesterday for TMA. This was uneventful. I was consulted to manage his end-stage renal disease. PAST MEDICAL HISTORY: 1. End-stage renal disease, maintained on hemodialysis every Saturday, and Saturday. 2. Hyperlipidemia. 3. Obstructive sleep apnea. 4. Diabetes mellitus. 5. Peripheral vascular disease. SOCIAL HISTORY: No drug or alcohol abuse. MEDICATIONS: 1. Atorvastatin. 2. Hydralazine. 3. Carvedilol. 4. Aspirin. 5. EPO. ALLERGIES: None. REVIEW OF SYSTEMS: GENERAL: No fever or chills. CARDIOVASCULAR: No chest pain or palpitation. PULMONARY: No cough or hemoptysis. GASTROINTESTINAL: No nausea or vomiting. GENITOURINARY: No frequency, no urgency. MUSCULOSKELETAL: As per the history of present illness. [facility] [address] [place] [address] CONSULTATION Name: ROWENA SOSA Room #: 448-P ADM IN M.R.#: [id number] Admission: 01/22/20 Attend Phys: Jonathan Lee MD Discharge: Date of : 62 Report #: [id number] FAMILY HISTORY: Significant for diabetes mellitus. PHYSICAL EXAMINATION: VITAL SIGNS: Temperature 36.4, pulse is 75, respiratory rate is 19, blood pressure is 113/44. HEAD AND NECK: No jugular venous distention. CHEST: No crackles. CARDIOVASCULAR: No rub. ABDOMEN: Soft, nontender. EXTREMITIES: Lower extremities, right TMA. LABORATORY DATA: Sodium is 136, potassium is 5.3, BUN is 53, creatinine is 8.4. Phosphorus 6.5. ASSESSMENT AND PLAN: 1. End-stage renal disease. 2. Hyperkalemia. 3. Status post transmetatarsal amputation. 4. We will arrange for the patient to have his usual hemodialysis today. 5. Continue with the routine postoperative care. 6. Blood pressure control. 7. Blood sugar control. 8. We will continue to follow. By: 08 2 Homer Bull MD /fly
--- NOTE | ~2020-01-22 | HC ---
[facility] [place] [address] CONSULTATION Name: ROWENA SOSA Room #: 448-P [facility] IN M.R.#: [id number] Admission: 01/22/20 Attend Phys: Jonathan Lee MD Discharge: Date of : 62 Report #: [id number] THIS REPORT FOR: cc: Roe Soria James A. DO Smithson, David G. MD ~ DATE OF SERVICE: 01/25/2020 HISTORY OF PRESENT ILLNESS: The patient is a 59-year-old -[place] male previously known to me from a prior acute inpatient rehabilitation stay 10/2018 status post a left below-knee amputation. He has a history of end-stage renal disease, on hemodialysis. He now was admitted with right forefoot gangrene and underwent a right transmetatarsal amputation on 01/22/2020. He is limited to nonweightbearing on the right lower extremity. Wound care has been consulted. He does have a history of end-stage renal disease, on hemodialysis. We are seeing him in rehabilitation medicine consultation. PAST MEDICAL HISTORY: Includes the above noted end-stage renal disease, on hemodialysis. He has a history of diabetes mellitus type 2, hypertension, cardiomyopathy, obstructive sleep apnea, exogenous obesity. MEDICATIONS: As noted. ALLERGIES: No known drug allergies. SOCIAL HISTORY: Lives with his in an apartment, no steps in, but apparently there is a sunken living room and he does need to go into. He gets around with his wheelchair. It sounds like it is tight getting into the bathroom and he is thinking of trying to get a smaller wheelchair. He has a prosthesis, but he indicates he never actually used it for his left below-knee amputation as the incision apparently opened and he needed prolonged healing for approximately 6 months and has not actually got into the point of wearing the prosthesis. REVIEW OF SYSTEMS: No current complaints of chest pain, shortness of breath or abdominal discomfort. PHYSICAL EXAMINATION: GENERAL: A 59-year-old -[place] male in no obvious distress. VITAL SIGNS: Last recorded temperature 97.5, pulse 89, respirations 18, blood pressure 118/97. The patient is alert. He was pleasant, follows basic 1 step commands. HEENT: Facies are symmetric. EXTREMITIES: Functional range of motion of the upper extremities. Strength is [facility] [address] [place] [address] CONSULTATION Name: ROWENA SOSA Room #: 448-P [facility] IN .R.#: [id number] Admission: 01/22/20 Attend Phys: Jonathan Lee MD Discharge: Date of : 62 Report #: [id number] grade 4-/5 to 4/5. He has the old left below-knee amputation appears to be reasonably healed at this time. He has good range of motion of that left knee. He has the right transmetatarsal amputation with the foot dressing in place. No focal calf swelling. Appears to have good proximal strength of the right lower extremity. ASSESSMENT: A 59-year-old -[place] male with the following problem list: 1. Right foot gangrene, status post right transmetatarsal amputation on 01/22/2020, nonweightbearing. 2. Prior left below-knee amputation 11/18/2019. He is not functionally utilizing his prosthesis yet secondary to prior wound breakdown per report. 3. End-stage renal disease, on hemodialysis. 4. Diabetes mellitus type 2. 5. Hypertension. 6. Cardiomyopathy. 7. Obstructive sleep apnea. PLAN: Therapy evaluations are underway. His course was complicated by the nonweightbearing status on the right lower extremity. If he is nonweightbearing on the right lower extremity and he does not have a functional prosthesis on the left lower extremity, we may be limited working on sliding board transfers in the short run. At this point, we will be glad to follow along with you regarding his rehab therapy needs. By: 1042 0200 Jared Serna MD /nt
[2020-01-22 10:29] LABS: HEMATOCRIT 26.6 % (42.0-52.0); HEMOGLOBIN 8.7 gm/dL (14.0-18.0); MCH 27.8 pg (26.0-34.0); MCHC 32.5 g/dL (28.0-37.0); MCV 85.6 fL (80.0-100.0); RBC 3.11 mil/uL (4.50-6.00); RDW 18.8 % (10.5-14.5); WBC 6.4 thou/uL (4.0-11.0)
[2020-01-22 10:40] LABS: CALCIUM 9.6 mg/dL (8.5-10.1); CREATININE 7.4 mg/dL (0.7-1.3); POTASSIUM 4.5 mmol/L (3.5-5.1)
[2020-01-22 10:47] LABS: ALBUMIN 2.9 g/dL (3.4-5.0); TOTAL BILIRUBIN 0.6 mg/dL (0.2-1.0); TOTAL PROTEIN 7.9 g/dL (6.4-8.2)
--- NOTE | 2020-01-22 12:36 | EKG ---
[facility] [place] [address] ELECTROCARDIOGRAM REPORT Name: ROWENA SOSA Room #: [facility]- ADM IN M.R.#: [id number] Admission: 01/22/20 Attend Phys: Jonathan Lee MD Discharge: Date of : 62 Report #: [id number] THIS REPORT FOR: cc: Roe Soria James A. DO Lundgren, Craig H. MD [facility] THIS REPORT FOR: //name// [facility] Test Date: 2020-01-22 Test Time: 09:46:36 Pat Name: ROWENA SOSA Department: Room: 150 Gender: M Uptwist Spinner: NU : 1960 Requested By: Jonathan Lee Order Number: [id number] MD: Jonas Albarado Measurements Intervals [place] Rate: 78 P: 47 AL: 217 QRS: -23 QRSD: 92 T: 103 QT: 388 QTc: 442 Interpretive Statements Sinus rhythm Prolonged AL interval Poor R wave progression Inferior infarct, age indeterminate T wave abnormality Baseline wander in lead(s) I,aVL Compared to ECG 08/21/2019 10:50:03 No significant change was found Electronically Signed On 01-22-2020 12:36:35 CDT by Jonas Albarado [email or web address] <ELECTRONICALLY SIGNED> By: Jonas Albarado MD, [facility] 01/22/20 1236 5 5 Jonas Albarado MD, [facility] /EPI
--- NOTE | 2020-01-22 15:24 | NUR ---
ASSESSMENT: CM REVIEWED CHART AND SPOKE WITH PATIENT AND HIS . PT IS ADMITTED FROM HOME WHERE HE LIVES WITH HIS IN AN APT. PT IS S/P TRANSMETATARSAL AMPUTATION DUE TO RIGHT FOOT GANGRENE. PT REPORTS HE HAS A WHEELCHAIR AT HOME, PROSTHESIS (HX LEFT BKA), AND FWW. PT REPORTS HAVING [facility] IN THE PAST BUT NOT CURRENTLY. PT REPORTS HE HAS ALSO BEEN TO 5N IN THE PAST. CM REVIEWED CHART. CONSULT WAS PLACED FOR 5N TO EVALUATE PT. CM NOTIFIED LIASON ON 5N. NO WEEKEND DISCHARGE ANTICIPATED. CM WILL CONTINUE TO FOLLOW TO ASSIST NEEDED.
--- NOTE | 2020-01-22 18:00 | NUR ---
PT ARRIVED ON UNIT AOX4, MOANING IN PAIN. PT REPORTS PAIN IS 10/10 ON ARRIVAL. PT SURGICAL DRESSING ON RLE IS CDI. HX OF LEFT BKA. RLE ELEVATED, IV IN RIGHT HAND WAS PULLING OUT WHEN PT WAS TURNING OVER IN BED. PT HAS NEW IV IN RIGHT FA, PLACED BY IV TEAM. IV FLUIDS ARE RUNNING. FALL PRECAUTIONS IN PLACE. PT RECEIVED IV AND ORAL PAIN ANALGESIC ORDERED. PT REPORTS PAIN IS DECREASING IN RLE. CALL LIGHT IN REACH. WILL CONTINUE TO MONITOR.
--- NOTE | 2020-01-23 03:54 | NUR ---
PATIENT ALERT AND ORIENTED X4. PAIN IS OFF AND ON ALL NIGHT. PATIENT YELLS OUT AND CAN BE HEARD ALL THE WAY DOWN THE HALLWAY. MEDICATED WITH FENTANYL, VICODIN AND ATIVAN. BS MONITORED PER ORDER. IVF INFUSING. 2LNC PATIENT WANTS. DRESSING TO RIGHT FOOT D/I. WILL MONITOR.
[2020-01-23 05:45] VITALS: BP 113/44
[2020-01-23 05:51] LABS: ABSOLUTE NEUTROPHILS 6.8 thou/uL (1.4-8.2); BASOPHILS 0.4 % (0.0-2.0); EOSINOPHILS 0.1 % (0.0-3.0); HEMATOCRIT 25.4 % (42.0-52.0); HEMOGLOBIN 8.1 gm/dL (14.0-18.0); LYMPHOCYTES 7.6 % (24.0-44.0); MCH 27.7 pg (26.0-34.0); MCV 86.6 fL (80.0-100.0); MONOCYTES 10.8 % (1.0-8.0); PLATELET COUNT 239 thou/uL (150-400); POLYS 81.1 % (36.0-66.0); RBC 2.93 mil/uL (4.50-6.00); RDW 19.3 % (10.5-14.5); WBC 8.4 thou/uL (4.0-11.0)
[2020-01-23 06:06] LABS: ALBUMIN 2.6 g/dL (3.4-5.0); MAGNESIUM 2.1 mg/dL (1.8-2.4); PHOSPHORUS 6.5 mg/dL (2.5-4.9); POTASSIUM 5.3 mmol/L (3.5-5.1)
[2020-01-23 06:07] LABS: CREATININE 8.4 mg/dL (0.7-1.3)
--- NOTE | 2020-01-23 15:36 | NUR ---
PT IS AOX4, VSS, PT REPORTS HIS PAIN IS NOT UNDER CONTROL. NURSE CALLED DR. BEVERLY, TO REPORT HEMOVAC DRAIN CAME OUT. NO ORDER GIVEN. DRESSING ON RLE REMAINS CDI. NURSE GAVE IV FENTANYL AND PT REPORTS IT IS NOT WORKING. NURSE TOLD DR. BEVERLY ABOUT PAIN MANAGEMENT, DR ORDERED IBUPROFEN NEEDED. PT ALSO RECEIVED HYDROCODONE. PT CURRENTLY REPORTS HE IS FEELING SLIGHT PAIN RELIEF, RECEIVED DIALYSIS TODAY. CALL LIGHT IN REACH. AT BEDSIDE. WILL CONTINUE TO MONUITOR.
[2020-01-23 16:45] VITALS: BP 153/71
[2020-01-23 20:10] VITALS: BP 141/73
--- NOTE | 2020-01-24 04:00 | NUR ---
PATIENT ALERT AND ORIENTED X4. PAIN IS VERY DIFFICULT TO GET AND KEEP UNDER CONTROL. PATIENT YELLS IN AGONY APPROXIMATELY 2.5 HOURS AFTER PAIN PILL. THIS NURSE HAS MEDICATED HIM WITH IBUPROFEN AND VICODIN WELL LORAZEPAM. BS MONITORED PER ORDER. WILL MONITOR.
[2020-01-24 05:25] LABS: HEMATOCRIT 25.8 % (42.0-52.0); HEMOGLOBIN 8.2 gm/dL (14.0-18.0); MCHC 31.7 g/dL (28.0-37.0); MCV 88.4 fL (80.0-100.0); PLATELET COUNT 238 thou/uL (150-400); RBC 2.92 mil/uL (4.50-6.00); RDW 19.2 % (10.5-14.5); WBC 7.1 thou/uL (4.0-11.0)
[2020-01-24 09:00] VITALS: BP 156/94
[2020-01-24 10:00] LABS: NUCLEATED RBCS 1 /100WBC
[2020-01-24 10:02] LABS: ANISOCYTOSIS 2+
[2020-01-24 10:03] LABS: OVALOCYTES 1+
[2020-01-24 10:04] LABS: SCHISTOCYTES FEW
[2020-01-24 16:19] VITALS: BP 131/87
--- NOTE | 2020-01-24 19:03 | NUR ---
Assumed care of pt at 0700. Pt c/o on rt foot. Prn pain meds administered. Pt c/o itching and heartburn. Provider notified. New orders noted. Dialysis TTHF. Call light within reach. Fall precautions in place. Report given to erica VELIZ.
[2020-01-25 04:43] VITALS: BP 185/78
--- NOTE | 2020-01-25 07:29 | O ---
[facility] [place] [address] OPERATIVE REPORT Name: ROWENA SOSA Room #: 448-P [facility] IN M.R.#: [id number] Admission: 01/22/20 Attend Phys: Jonathan Lee MD Discharge: Date of : 62 Report #: [id number] THIS REPORT FOR: cc: Roe Soria James A. DO Kneidel, Matthew T. MD ~ CC: Roe Lee DATE OF SERVICE: 01/22/2020 PREOPERATIVE DIAGNOSIS: Right forefoot gangrene. POSTOPERATIVE DIAGNOSIS: Right forefoot gangrene. PROCEDURE: Right foot transmetatarsal amputation. SURGEON: Dr. Jonathan Lee. DRAFTER CIVIL: Bri Davenport. ANESTHESIA: General. ESTIMATED BLOOD LOSS: 50 mL. DRAINS: One Hemovac drain was placed. COMPLICATIONS: There were no complications. DESCRIPTION OF PROCEDURE: The patient brought to the operating room where he was placed under general anesthesia. Once under adequate general anesthesia, his right lower extremity was prepped and draped in sterile manner. A fishmouth-type incision about the distal forefoot was then made with a longer plantar limb. Dissection was taken sharply down to the metatarsals. Cautery was used to cauterize any bleeding vessels and a sagittal saw was used to transect each of the metatarsals evenly at the first and second metatarsal and then in a cascading fashion extending laterally. The plantar soft tissue was then removed from the bones and the amputation was then complete. The wound was irrigated copiously with normal saline solution and then closed over a Hemovac drain with 2-0 nylon suture for the skin. The wound was dressed with Xeroform, 4 x 4s, and sterile soft compressive dressing was placed. Tourniquet was let down at approximately 30 minutes. There were no complications from the [facility] [address] [place] [address] OPERATIVE REPORT Name: ROWENA SOSA Room #: 448-P [facility] IN [facility]#: [id number] Admission: 01/22/20 Attend Phys: Jonathan Lee MD Discharge: Date of : 62 Report #: [id number] procedure. The patient tolerated the procedure well and went to recovery room without incident. <ELECTRONICALLY SIGNED> By: Jonathan Lee MD 01/25/20 0729 [id number] 1200 Jonathan Lee MD /nt
[2020-01-25 07:58] VITALS: BP 118/93
--- NOTE | 2020-01-25 07:58 | NUR ---
PT SITTING UP IN BED. LORTAB AND IBUPROFEN PROVIDING PAIN RELIEF. NO NEEDS VOICED. FREQUENT OBSERVATION.
--- NOTE | 2020-01-25 09:38 | NUR ---
RD consult received. Pt s/p right transmetatarsal amputation 01/21. Hx Legt BKA (2019), DM, ESRD/dialysis. Pt eats well, 100% of meals. BG control. Renal labs elevated, however per RN physician indicated previously that pt can have limited diet restriction, so diet will remain carb control. Pt does not like Nepro or any other oral supplements. Wts stable. Low nutrition risk
--- NOTE | 2020-01-25 12:10 | NUR ---
on-going assessment: CM REVIEWED CHART AND SPOKE WITH Aaron LIASON WHO REPORTS PATIENT IS MORE APPROPRIATE FOR SNF. CM NOTIFIED PT AND HIS . CM PROVIDED HIM WITH A SNF LIST OF IN NETWORK FACILITIES AND ALSO EMAILED A COPY TO HIS AT [email or web address]. THEY ARE GOING TO REVIEW AND DISCUSS AND LET CM KNOW WHEN THEY HAVE CHOICES.
--- NOTE | 2020-01-25 13:01 | NUR ---
5N CONSULT RECEIVED. WITH OLD L BKA AND NEW R TRANSMETATARSAL AMPUTATION, Pt IS ESSENTIALLY NWB BILATERALLY. PER CONVERSATIONS WITH THERAPY AND DR. STEELE, Pt APPEARS TO BE MORE APPROPRIATE FOR SNF LEVEL OF CARE AND THERAPIES. CASE MGMT/SOCIAL WORK NOTIFIED. THANK YOU FOR THIS REFERRAL.
[2020-01-25 13:30] VITALS: BP 131/83
--- NOTE | 2020-01-25 17:02 | NUR ---
FAXED REFERRAL TO [facility] RECEIVED CONFIRMATION AND LEFT MSG WITH [facility] IN ADM,.
[2020-01-25 19:33] VITALS: BP 144/79
--- NOTE | 2020-01-25 19:51 | NUR ---
Assumed care of pt. at 0700. Pt. was calm and cooperative. Pt. complained of pain after dressing change, PRN medication given. Dressing change became partially saturated with blood. Attempted to notify Dr. Green, no call back received. Dressing was redone with extra reinforment of ABDs. No further saturation noted. Fall precautions in place.
--- NOTE | 2020-01-26 02:05 | NUR ---
ASSUMED PT CARE AT 1915. PT IS ALERT TO SELF. PT VSS. PT TAKES MEDICINE WHOLE. PT IS ASLEEP IN HIS ROOM. DOING HOURLY ROUNDS. WILL CONTINUE TO TR.
[2020-01-26 04:50] VITALS: BP 145/81
--- NOTE | 2020-01-26 09:00 | NUR ---
ON-GOING ASSESSMENT: REESE REVIEWED CHART AND RECEIVED A CALL FROM [facility] ADMISSIONS WHO STATES THEY CANNOT ACCEPT THE PATIENT AT THIS TIME DUE TO NOT BEING ABLE TO ACCOMIDATE HIS DIALYSIS. CM NOTIFIED PATIENTS . SHE WOULD LIKE A REFERRAL SENT TO [facility]. CM FAXED REFERRAL AND AWAITING FURTHER IN PUT AT THIS TIME. STATES SHE IS ALSO INTERSTED IN [facility]. CM FAXED REFERRAL AND NOTIFIED LIASON AND AWAITING INPUT.
--- NOTE | 2020-01-26 15:28 | NUR ---
ON-GOING ASSESSMENT: CM REVIEWED CHART AND SPOKE WITH LIASON FROM [facility] WHO REPORTS THEY CAN ACCEPT PT AND RECEIVED INSURANCE AUTH. PHYSICIAN STATING TO PLAN FOR DISCHARGE TOMORROW. PT GOT DILAYSIS TODAY. CM SPOKE WITH PT TO UPDATE HIM ON POSSIBLY DISCHARGE TOMORROW AND HE IS AGREEABLE. CM SPOKE WITH PTS WHO IS GOING TO BRING UP HIS CPAP IN THE AM FOR HIM TO TAKE TO THE FACILITY. CM WILL CONTINUE TO FOLLOW TO ASSIST NEEDED.
--- NOTE | 2020-01-26 18:37 | NUR ---
PT IS AOX4, VSS, BS WNL. PT DRESSING ON RIGHT FOOT IS CDI. PT RECEIVED HEMODIALYSIS TODAY, NURSE TOOK OFF 3 LITERS. PT IS UPSET ABOUT THE FACILITY HE IS GOING TO TOMORROW BECAUSE HIS CAN NOT VISIT D/T COVID 19. PT'S PAIN IN RIGHT FOOT IS CONTROLLED WITH ORAL ANALGESIC. CALL LIGHT IN REACH, WILL CONTINUE TO MONITOR.
[2020-01-26 20:22] VITALS: BP 149/82
--- NOTE | 2020-01-27 03:57 | NUR ---
ASSUMED PT CARE AT 1915. PT IS A&OX4. VSS. BLOOD SUGAR WAS 90. PT IS ADAMANT ABOUT USING THE CAMODE. PT STATES THAT HE IS UNABLE TO ASSIST WITH GETTING TO THE CAMODE. FOR HIS SAFETY I SUGGESTED TO USE THE BEDPAN. PT MAKES LOUD NOISES IN HIS SLEEP. PT TAKES HIS MEDICATION WHOLE. PT DENIES ANY PAIN. WILL CONTINUE TO MONITOR.
[2020-01-27 07:34] VITALS: BP 141/78
--- NOTE | 2020-01-27 11:16 | NUR ---
ON-GOING ASSESSMENT: PLANS TO DISCHARGE TO SNF ([facility] TODAY). CM SPOKE WITH SUZY AT [facility] WHO REPORTS THEY HAVE AUTH AND CAN ACCEPT PT TODAY. CM NOTIFIED ATTENDING. CM ALSO NOTIFIED PTS AND PT AND HIS BROUGHT UP HIS CPAP TO TAKE WITH HIM TO [facility]. CM NOTIFIED SUZY AT [facility]. CM FAXED DISCHARGE ORDERS TO FACILITY AND CONFIRMED THEY RECEIVED IT. CM NOTIFIED BEDSIDE RN AND NUMBER FOR REPORT. CHART COPY WAS ORDERED AND [employer] INSTRUCTOR NOTIFIED. TRANSPORTATION IS PENDING BUT TENTATIVE FOR 1300. CM NOTIFIED TYREE [facility]CI OF DISCHARGE TODAY TO [facility] AND CM FAXED THEM CLINICAL/FLOWSHEETS/DISCHARGE PAPERWORK. PT REPORTS NO FURTHER NEEDS FROM CM. CASE CLOSED.
[2020-01-27 13:46] VITALS: BP 126/65
--- NOTE | 2020-01-28 10:55 | HC ---
[facility] [address] CONSULTATION Name: ROWENA SOSA Room #: 448-P [facility] IN M.R.#: [id number] Admission: 01/22/20 Attend Phys: Jonathan Lee MD Discharge: 01/27/20 Date of : 62 Report #: [id number] THIS REPORT FOR: cc: Roe Soria James A. DO Althoff, Jeffrey R. MD ~ DATE OF SERVICE: 01/25/2020 CHIEF COMPLAINT: Ischemic right foot, now status post transmetatarsal amputation. HISTORY OF PRESENT ILLNESS: This is a 59-year-old male patient with whom I am familiar from outpatient evaluation. He has a prior right below-knee amputation and developed ischemic changes to the toes of his left foot. He underwent angiography. There is very poor flow below the ankle and no intervention either surgically or percutaneously was able to be performed. The patient has had progressive dry gangrene of the toes, was admitted to the hospital after being seen by Dr. Lee and has undergone transmetatarsal amputation. I have been asked to see him and follow him while here in the hospital. The patient is in good spirits. He denies any pain at this time. PAST MEDICAL HISTORY: Positive for type 2 diabetes mellitus, end-stage renal disease, requiring hemodialysis, severe peripheral arterial disease, prior amputation of the right leg. He has a history of ongoing tobacco use, although states he quit about 30 days ago and tends to not resume. CURRENT MEDICATIONS: Include calcium carbonate, diphenhydramine, calcium acetate, epoetin, ibuprofen, atorvastatin, folic acid, lidocaine, fentanyl, hydralazine, melatonin, carvedilol, lorazepam, hydrocodone. ALLERGIES: No known drug allergies. SOCIAL HISTORY: Negative for current alcohol use. Negative for current tobacco use. He has been a longtime daily smoker, having stopped smoking approximately 30 days ago. FAMILY HISTORY: Noncontributory. REVIEW OF SYSTEMS: CONSTITUTIONAL: The patient denies fever, chills or weight loss. NEUROLOGICAL: The patient denies focal weakness, numbness or tingling. EYES: The patient denies visual changes, redness, or drainage. ENT: The patient denies earache, nasal drainage, sore throat. CARDIOVASCULAR: The patient denies chest pain, palpitations or diaphoresis. [address] [address] CONSULTATION Name: ROWENA SOSA Room #: 448-P [facility] IN M.R.#: [id number] Admission: 01/22/20 Attend Phys: Jonathan Lee MD Discharge: 01/27/20 Date of : 62 Report #: [id number] PULMONARY: The patient denies cough or shortness of breath. GASTROINTESTINAL: The patient denies nausea, vomiting, diarrhea or abdominal pain. ORTHOPEDIC: The patient has had prior right below-knee amputation, has new transmetatarsal amputation of the left foot. He denies any pain associated with this at this time. Other systems in a 14-point review of systems are negative. PHYSICAL EXAMINATION: VITAL SIGNS: At this time include temperature 36.4, pulse 69, blood pressure 131/83. GENERAL: This is a somewhat chronically ill-appearing male patient who appears to be in minimal distress. HEENT: Head is normocephalic and atraumatic intact. Extraocular movements are intact. Nose and throat are clear. NECK: Supple. HEART: Regular rhythm. LUNGS: Diminished. ABDOMEN: Soft. EXTREMITIES: Lower extremities demonstrate prior below-knee amputation on the right side that is well healed. He has a postsurgical dressing on the left foot. This is peeled back and the incision line is well intact with no separation and no evidence of any necrosis at this time. NEUROLOGIC: The patient is alert and oriented and appropriate, in good spirits. LABORATORY DATA: Include sodium 136, potassium 5.3, chloride 99, CO2 of 25, BUN 53, creatinine 8.4, glucose 128, albumin is 2.6. White blood cell count 7.1, hemoglobin 8.2. CLINICAL IMPRESSION: 1. Gangrenous changes to the toes of the left foot, now status post transmetatarsal amputation. 2. Severe peripheral arterial disease with no percutaneous or surgical options. 3. Type 2 diabetes mellitus. 4. End-stage renal disease, requiring dialysis. RECOMMENDATIONS: At this point in time, we will recommend Xeroform gauze across the incision line and the transmetatarsal amputation site to be covered with ABD, Kerlix and Jorge Luis wrap and elevation of the foot at all times. Continuation [address] [address] CONSULTATION Name: ROWENA SOSA Room #: 448-P [facility] IN M.R.#: [id number] Admission: 01/22/20 Attend Phys: Jonathan Lee MD Discharge: 01/27/20 Date of : 62 Report #: [id number] of current medications, aggressive nutritional support to maximize wound healing. I do appreciate being asked to see the patient in consultation. <ELECTRONICALLY SIGNED> By: Claudio Amador MD 01/28/20 1055 [id number] [id number] Claudio Amador MD /nt
--- NOTE | 2020-01-28 18:06 | PATH ---
[facility] [address] [place] [address] PATHOLOGY RPT PROCEDURE Name: BALJIT SULLIVAN Room #: 448-P DIS IN M.R.#: [id number] Admission: 01/22/20 Date of : 62 Discharge: 01/27/20 Report #: [id number] Path Case #: [id number] [facility] Accession Number: [id number] . 01 Material submitted: . foot - RIGHT FOOT TRANSMETATARSAL. Modifiers: right . 01 Clinical history: . OTHER SKIN CHANGES; GANGRENE; NOT ELSEWHERE CLASSIFIED . 02 Diagnosis: Foot, right forefoot, transmetatarsal amputation: - Gangrenous necrosis associated with marked acute inflammation extending into underlying bone. - Bone margins viable at inked margins. . (IUV:mml; 01/28/2020) QLM 01/28/2020 1613 Local . 02 Electronically signed: . Maureen Castorena MD, Pathologist NPI- [id number] . 01 Gross description: . The specimen is received in formalin, labeled "Baljit Sullivan, right foot transmetatarsal". Received is a forefoot amputation measuring 11.3 cm from proximal to distal, 8.8 cm from medial to lateral, and 4.3 cm from plantar to dorsal. The fifth toe has previously been amputated. Toes 1 through 4 are present. The epidermal surface on the dorsal aspect is dusky porter-curry, wrinkled and sloughing in appearance to brown-black. Four metatarsal heads are identified, which are transected and blunt in appearance, and appear grossly unremarkable. The bone margins are inked as follows: Metatarsal 1-black, metatarsal 2-blue, metatarsal 3-yellow, metatarsal 4-red. The specimen is submitted associate sales representative lesion follows: . A1 horizontal cross-section through first toe through lesion, to include underlying bone, following decalcification A2 longitudinal cross-section through bone margin of metatarsal 1, following decalcification A3 longitudinal cross-section through bone margin of metatarsal 2, following decalcification A4 longitudinal cross-section through bone margin of metatarsal 3, following decalcification A5 longitudinal cross-section through bone margin of metatarsal 4, following decalcification. (CAA; 01/27/2020) [address] [address] PATHOLOGY RPT PROCEDURE Name: BALJIT SULLIVAN Room #: 448-P DIS IN M.R.#: [id number] Admission: 01/22/20 Date of : 62 Discharge: 01/27/20 Report #: [id number] Path Case #: [id number] QAC/QAC 01/27/2020 1114 Local . 02 Pathologist provided ICD-10: I96, L98.9 . 02 CPT . 463127, 189942 Specimen Comment: A courtesy copy of this report has been sent to [phone] Specimen Comment: [phone] Specimen Comment: Report sent to / DR JACOBS Performed at: [address] [facility], [place], [place] [id number] MD Rosendo Coronel MD Phone: [phone] Performed at: [address] [facility] [id number] MD Maureen Castorena MD Phone: [phone]
== END 2020-01-27 14:22 | DRG 239 ==
LOC: PRE 09:16 → TBA 09:19 → 4S 09:19 → PRE 12:39 → 4S 13:41 → PRE 14:15 → 4S 01-27 14:22
PROVIDERS: Internal Medicine; ADMIT Orthopaedic Surgery Foot and Ankle Surgery; ATTEND Orthopaedic Surgery Foot and Ankle Surgery
PROC: 0Y6M0ZD Detachment at Right Foot, Partial 4th Ray, Open Approach (ICD-10-PCS; principal; 2020-01-22)
PROC: 0Y6M0ZF Detachment at Right Foot, Partial 5th Ray, Open Approach (ICD-10-PCS; principal; 2020-01-22)
PROC: 0Y6M0Z9 Detachment at Right Foot, Partial 1st Ray, Open Approach (ICD-10-PCS; principal; 2020-01-22)
PROC: 0Y6M0ZB Detachment at Right Foot, Partial 2nd Ray, Open Approach (ICD-10-PCS; principal; 2020-01-22)
PROC: 0Y6M0ZC Detachment at Right Foot, Partial 3rd Ray, Open Approach (ICD-10-PCS; principal; 2020-01-22)
PROC: 5A1D70Z Performance of Urinary Filtration, Intermittent, Less than 6 Hours Per Day (ICD-10-PCS; 2020-01-23)
DX: E11.52 Type 2 diabetes mellitus with diabetic peripheral angiopathy with gangrene (principal); N18.6 End stage renal disease; I12.0 Hypertensive chronic kidney disease with stage 5 chronic kidney disease or end stage renal disease; I42.9 Cardiomyopathy, unspecified; E44.0 Moderate protein-calorie malnutrition; E11.22 Type 2 diabetes mellitus with diabetic chronic kidney disease; E78.5 Hyperlipidemia, unspecified; G47.33 Obstructive sleep apnea (adult) (pediatric); F41.1 Generalized anxiety disorder; D63.1 Anemia in chronic kidney disease; I25.10 Atherosclerotic heart disease of native coronary artery without angina pectoris; E87.5 Hyperkalemia; Z99.2 Dependence on renal dialysis; Z89.421 Acquired absence of other right toe(s); Z68.33 Body mass index [BMI] 33.0-33.9, adult
CPT/HCPCS: 10102; 32100; 50010; 50101; 50386; 50951; 56525; 56526; 57091; 57103; 57180; 62110; 62900; 70005

== ENCOUNTER → 2020-02-10 | Outpatient (CLI) | payer OTHER | LOC: HYPER 08:21 | PROVIDERS: ATTEND Emergency Medicine | DX: T87.81 Dehiscence of amputation stump (principal); S90.424D Blister (nonthermal), right lesser toe(s), subsequent encounter; S90.821D Blister (nonthermal), right foot, subsequent encounter; S60.021D Contusion of right index finger without damage to nail, subsequent encounter; E11.622 Type 2 diabetes mellitus with other skin ulcer; N48.5 Ulcer of penis; K21.9 Gastro-esophageal reflux disease without esophagitis; R60.0 Localized edema; R41.3 Other amnesia; Z87.891 Personal history of nicotine dependence; X58.XXXD Exposure to other specified factors, subsequent encounter; Y92.238 Other place in hospital as the place of occurrence of the external cause; Y83.5 Amputation of limb(s) as the cause of abnormal reaction of the patient, or of later complication, without mention of misadventure at the time of the procedure ==

== ENCOUNTER 2020-02-29 15:17 | Inpatient (IN) | payer OTHER ==
[~2020-02-29] VITALS: Ht 182.9 cm; Wt 111.1 kg
[2020-02-29 15:18] VITALS: BP 130/75
[2020-02-29 20:35] LABS: URINE BILIRUBIN NEGATIVE (Negative); URINE BLOOD NEGATIVE (Negative); URINE CLARITY CLEAR; URINE COLOR YELLOW; URINE GLUCOSE-RANDOM* NEGATIVE (Negative); URINE KETONES NEGATIVE (Negative); URINE LEUKOCYTES-REFLEX NEGATIVE (Negative); URINE NITRITE-REFLEX NEGATIVE (Negative); URINE PROTEIN (DIPSTICK) 3+ (Negative); URINE UROBILINOGEN 0.2 E.U./dl (0.2-1.0)
[2020-02-29 20:41] LABS: ABSOLUTE NEUTROPHILS 9.3 thou/uL (1.4-8.2); BASOPHILS 0.1 % (0.0-2.0); EOSINOPHILS 0.9 % (0.0-3.0); HEMATOCRIT 26.7 % (42.0-52.0); HEMOGLOBIN 8.4 gm/dL (14.0-18.0); LYMPHOCYTES 5.8 % (24.0-44.0); MCH 26.6 pg (26.0-34.0); MCHC 31.5 g/dL (28.0-37.0); MCV 84.4 fL (80.0-100.0); MONOCYTES 11.1 % (1.0-8.0); PLATELET COUNT 437 thou/uL (150-400); POLYS 82.1 % (36.0-66.0); RBC 3.16 mil/uL (4.50-6.00); RDW 18.5 % (10.5-14.5); WBC 11.3 thou/uL (4.0-11.0)
[2020-02-29 20:43] LABS: CASTS None Seen /LPF (None Seen); CRYSTALS None Seen /LPF (None Seen); SQUAMOUS None Seen /LPF (0-3); URINE RBC None Seen /HPF (0-2); URINE WBC-REFLEX 0-5 Rare /HPF (0-5)
[2020-02-29 21:34] LABS: CALCIUM 9.6 mg/dL (8.5-10.1); CREATININE 9.9 mg/dL (0.7-1.3); POTASSIUM 4.2 mmol/L (3.5-5.1)
[2020-02-29 21:40] LABS: ALBUMIN 2.4 g/dL (3.4-5.0); DIRECT BILIRUBIN 0.2 mg/dL (<0.1-0.2); TOTAL BILIRUBIN 0.7 mg/dL (0.2-1.0); TOTAL PROTEIN 7.9 g/dL (6.4-8.2)
[2020-02-29 23:06] VITALS: BP 155/64
[2020-03-01] VITALS: BP 162/83
--- NOTE | 2020-03-01 04:33 | NUR ---
admit pt admitted to room 449 via ed for infected diabetic right foot ulcer. oriented to room call light system and poc. iv to rac flushed and vancomycin loading dose administered. left upper arm dialysis fistula noted with good bruit and trill. right foot with toes amputated and surgical incision that is rotary operator and dry appearing odorous no pulse detected, left foot amputated stump appears intact. pt drowsy and snoring on arrival had to keep waking up to resume admission questionaire. orders reviewed acknowledged and initiated.
[2020-03-01 04:56] LABS: HEMATOCRIT 27.2 % (42.0-52.0); HEMOGLOBIN 8.6 gm/dL (14.0-18.0); MCH 26.8 pg (26.0-34.0); MCHC 31.7 g/dL (28.0-37.0); MCV 84.7 fL (80.0-100.0); RBC 3.21 mil/uL (4.50-6.00); WBC 11.2 thou/uL (4.0-11.0)
[2020-03-01 05:13] LABS: CALCIUM 9.7 mg/dL (8.5-10.1); CREATININE 10.1 mg/dL (0.7-1.3); MAGNESIUM 2.2 mg/dL (1.8-2.4); POTASSIUM 4.4 mmol/L (3.5-5.1)
[2020-03-01 07:19] VITALS: BP 180/87
--- NOTE | 2020-03-01 07:58 | NUR ---
RD consult received. Right foot wound. Hx left BKA, PVD, ESRD/dialysis, DM,CVA. BG controlled. Several admissions in past, and usually eats very well. Dislikes oral supplements. Wts variable over past year 225-260 lb and current wt is 245 lb. Diet typically kept liberalized and currently on carb control diet. Will defer any need for renal restriction to adobe developer. Low nutrition risk
--- NOTE | 2020-03-01 11:11 | NUR ---
PATIENT WAS PLEASANT AND COOPERATIVE. PATIENT DENIES ANY PAIN AND RECENTLY INTERACTED WITH OCCUPATIONAL THERAPY.
--- NOTE | 2020-03-01 11:20 | NUR ---
Received awake on bed. Due medications given as prescribed. On carb controlled diet- tolerating well; no nausea, no vomiting and no abdominal pain noted. On MS, not on telemetry; no complains and signs of chest pain, crushing sensation and heaviness. On room air. Vital signs stable- with BP elevation noted- Dr Hung informed; maintenance BP meds not restarted- med rec done and physician informed to review meds. Dialysis schedule (--)- with L upper arm dialysis access- C/D/I. Assisted in ADLs. Falls bundle in place. Called this am and confirmed re: pt's home meds, update given as well. With L BKA and R partial amputation; wound care involved in pt's care. No complains of pain made during assessment. To continue monitoring patient.
--- NOTE | 2020-03-01 12:00 | NUR ---
I have reviewed the student documentation.
--- NOTE | 2020-03-01 13:29 | NUR ---
PT ADMITTED RELATED TO RIGHT FOOT WOUND/ULCER/DRAINAGE. CM REVIEWED CHART AND SPOKE WITH CARE TEAM. CM CALLED AND SPOKE WITH PT OVER THE PHONE THIS DAY. PT INDICATED HE RESIDES IN AN APARTMENT WITH HIS . PT SOUNDED LIKE HE WAS HAVING SOME DIFFICULTY SPEAKING SO CM OFFERED TO CALL BACK LATER. CM ATTEMPTED TO SPEAK WITH PT OVER PHONE THIS AFTERNOON NOT ABLE TO REACH PT. CM CALLED PT'S SPOUSE. SHE INDICATED THERE IS 1 STEP TO ENTER AND NO STEPS INSIDE. SHE INDICATED THAT PT HAS A WC, FWW, PROSTHESIS, AND SLIDE BOARD. SHE CONFIRMED THAT PT HAD BEEN ON 5N IN THE PAST. PT HAD MOST RECENTLY BEEN TO [facility] [place] 01/27/20. SPOUSE INDICATED THAT HE HAD SINCE RETURNED HOME AND HAD BEEN ON SERVICES WITH [facility]. SPOUSE INDICATED THEY LIKE [facility] AND WOULD WANT TO USE THEM AGAIN. SPOUSE STATED THAT SHE WOULD BE RECEPTIVE TO PT [facility]IO[facility] FOR MORE REHAB IF APPROPRIATE BUT NOT BACK TO [facility]. PT IS ON IV VANC, WC AND PODIETRY WERE CONSULTED. CM TO FOLLOW INDICATED WITH DC PLANNING.
[2020-03-01 14:46] VITALS: BP 198/148
[2020-03-01 16:30] VITALS: BP 142/73
--- NOTE | 2020-03-02 03:00 | NUR ---
PT CARE ASSUMED WITH PT FINISHING UP WITH DIALYSIS.PT IS A/O X4.PT REFUSED STAFF TAKING VITAL SIGNS AND WANTED TO BE LEFT ALONE.PT REFUSED WOUND DRESSING .PT IS LT BKA AND RT PARTIAL AMPUTATION.PT HAS AN AV SHUNT IN MARNI.IV ACCESS ON RT AC SL.PT IS ACCUCHCEK ACHS.PT C/O PAIN AND HAD HYDROCODONE FOR PAIN MANAGEMENT.WILL CONTINUE TO MONITOR
[2020-03-02 05:40] VITALS: BP 137/73
[2020-03-02 05:54] LABS: ABSOLUTE NEUTROPHILS 10.3 thou/uL (1.4-8.2); BASOPHILS 0.2 % (0.0-2.0); EOSINOPHILS 0.4 % (0.0-3.0); HEMATOCRIT 27.1 % (42.0-52.0); HEMOGLOBIN 8.6 gm/dL (14.0-18.0); LYMPHOCYTES 4.9 % (24.0-44.0); MCH 26.6 pg (26.0-34.0); MCHC 31.8 g/dL (28.0-37.0); MCV 83.5 fL (80.0-100.0); MONOCYTES 10.2 % (1.0-8.0); PLATELET COUNT 436 thou/uL (150-400); POLYS 84.3 % (36.0-66.0); RBC 3.24 mil/uL (4.50-6.00); RDW 17.9 % (10.5-14.5); WBC 12.2 thou/uL (4.0-11.0)
[2020-03-02 06:14] LABS: CALCIUM 9.8 mg/dL (8.5-10.1); MAGNESIUM 2.1 mg/dL (1.8-2.4); POTASSIUM 4.1 mmol/L (3.5-5.1)
[2020-03-02 06:16] LABS: CREATININE 7.5 mg/dL (0.7-1.3)
[2020-03-02 07:28] VITALS: BP 140/77
--- NOTE | 2020-03-02 10:35 | NUR ---
PT IS ON IV VANC. WC SAW PT AND HAVE INDICATED THAT THEY CONSULTED ORTHO FOR POSSIBLE R BKA. CM TO FOLLOW INDICATED WITH DC PLANNING.
--- NOTE | 2020-03-02 13:04 | NUR ---
Assumed pt care at 7am.Pt in bed moaning on and off as usual.Assessment completed.Vss.Pt requested for hot coffee and creamer. It was given but spilled allover the bed.Completed bed change done by principal law clerk.Dr Howell and Ortho panama hat smearer here ,stated that pt will have have amputation this admission but date not known until seen by Dr Nettles. Received call from pt ,upddates given.Will continue to monitor.
[2020-03-02 15:27] VITALS: BP 157/82
[2020-03-02 19:30] VITALS: BP 125/38
--- NOTE | 2020-03-03 03:55 | NUR ---
ASSUMED CARE OF PT AT 1900HRS. PT IS AOX3-4 AND LETS NEEDS BE KNOWN. FALL PRECAUTION IN PLACE. PT DENIED NAUSEA OR SOA. PT WAS ABLE TO TAKE MEDS WHOLE WITH WATER. PT WAS PUT ON BIPAP FOR HS, HOWEVER, PT DID NOT KEEP BIPAP ON FOR LONG. PT WAS ABLE TO GET COMFORTABLE AND SLEEP PART OF THE SHIFT. PT DOES TOSS AND TURN A LOT IN BED. DRESSING CHANGE DONE PER ORDER. VSS AND NO S/S OF ACUTE DISTRESS. WILL CONTINUE TO MONITOR.
[2020-03-03 07:00] VITALS: BP 147/71
[2020-03-03 07:08] VITALS: BP 116/73
--- NOTE | 2020-03-03 09:56 | NUR ---
ORTHO SAY PT YESTERDAY. PLAN IS FOR A R BKA TO BE DONE TOMORROW. PT GETTING DIALYSIS TODAY. CONTINUES ON IV ABX. CM TO FOLLOW INDICATED WITH DC PLANNING.
--- NOTE | 2020-03-03 13:28 | NUR ---
Assumed pt care at 7am.Pt in bed screaming very loud c/o rt foot pain even though po painmed was given 2hours ago.Dr Howell notified and order received. Dilaudid ivp given with partial relief.Dr Nettles here,order noted for rtbka scheduled for tomorrow at 1130am.Pt here and updates given.Vanco through drawn prior to hemodialysis.Fall bundle in place.Will continue to monitor.
[2020-03-03 17:00] VITALS: BP 159/80
[2020-03-03 19:46] VITALS: BP 146/56
[2020-03-04] VITALS (8 sets, daily range): BP systolic 122–163; BP diastolic 56–84
--- NOTE | 2020-03-04 00:56 | NUR ---
PT CARE ASSSUMED WITH PT IN BED .PT ALERT AND IRRITABLE.PT IS LT BKA AND RT PARTIAL AMPUTATION.PT IS TO HAVE LT FOOT AMPUTATION TODAY AND WILL COME IN TO SIGN CONSENT.PT NPO FROM MIDNIGHT.PT IS ACCUCHECK ACHS WITH LOW SSI.PT HAS DIALYSIS TUES/THURS/SAT.WILL CONTINUE TO MONITOR
[2020-03-04 11:32] LABS: HEMATOCRIT 26.6 % (42.0-52.0); HEMOGLOBIN 8.6 gm/dL (14.0-18.0); MCH 26.9 pg (26.0-34.0); MCHC 32.2 g/dL (28.0-37.0); MCV 83.6 fL (80.0-100.0); RBC 3.18 mil/uL (4.50-6.00); RDW 17.7 % (10.5-14.5); WBC 13.1 thou/uL (4.0-11.0)
[2020-03-04 11:46] LABS: CALCIUM 10.2 mg/dL (8.5-10.1); CREATININE 7.1 mg/dL (0.7-1.3); POTASSIUM 4.4 mmol/L (3.5-5.1)
--- NOTE | 2020-03-04 17:55 | NUR ---
Assumed care of pt. after surgery at 1430. Pt. was drowsy and unable to give detailed answers. Pt. sat up and stared out the window for a solid amount of time. Pt. began to complain of severe pain and was given pain medication. Fall precautions in place.
--- NOTE | 2020-03-04 20:38 | NUR ---
Received awake on bed. On nothing per orem- pt informed and aware. On MS, not on telemetry; no complains and signs of chest pain, crushing sensation and heaviness. Assisted in ADLs. On blood sugar monitoring, taken and recorded accordingly. On room air. Unable to obtain full vitals, pt refusing to have BP taken- Dr Hung informed. Pt yelling and moaning, pain meds given as prescibed; continously moaning still. With SL at L upper arm- intact and flushing well. Scheduled to have OR at 11am- pt updated. To continue monitoring patient. Dialysis pt, T-Th-Sat; dialysis access at L upper arm. With leg wound, pt refusing to have dressings in place. visited this AM, update given, getting concerned re: pt's behavior and confusion- Dr Hung informed, will check pt's meds and possible psych consult. Report given to pre-op nurse. sample preparation supervisor called pt to be transferred to Rm 438; updated. Report given to RN Jerad; belongings transferred.
--- NOTE | 2020-03-05 00:36 | NUR ---
ASSUMED PT CARE AT AROUND 1915 HRS. PT YELLING OUT NON STOP. PT SHOUTING " I CANT TAKE IT ANYMORE' EVEN AFTER GETTING HALDOL AND IVP MORPHINE, PT CONTINUES TO MOVE AROUND IN BED. HE REMOVED THE STUMP DRSG AND WHILE I WAS HOLDING HIS HAND TO REINFORCE THE DRSG, HE PULLED OFF THE HEMOVAC. PRESSURE APPLIED TO R STUMP, BLEEDING STOPPED. ORDERS RECD FOR RESTRAINTS PT PULLING AT IV ON MARNI. FISTULA TO ROLANDO WITH DRSG INTACT. PT REFUSED TO TAKE MELATONIN. NURSING STAFF STAYED WITH PATIENT UPTO AROUND 0045 HRS. PT SLEEPS ON AND OFF. NICHOLAS SOFT WRIST RESTARINTS IN PLACE. GARY NOTIFIED AND SHE WILL BE HERE TO SEE PATIENT TOMORROW.
[2020-03-05 03:07] VITALS: BP 145/104
[2020-03-05 03:56] LABS: BASOPHILS 0.6 % (0.0-2.0); EOSINOPHILS 0.3 % (0.0-3.0); HEMATOCRIT 23.9 % (42.0-52.0); HEMOGLOBIN 7.4 gm/dL (14.0-18.0); LYMPHOCYTES 5.4 % (24.0-44.0); MCH 26.3 pg (26.0-34.0); MCHC 31.2 g/dL (28.0-37.0); MCV 84.3 fL (80.0-100.0); MONOCYTES 8.6 % (1.0-8.0); PLATELET COUNT 408 thou/uL (150-400); POLYS 85.1 % (36.0-66.0); RBC 2.83 mil/uL (4.50-6.00); RDW 18.5 % (10.5-14.5); WBC 10.6 thou/uL (4.0-11.0)
[2020-03-05 04:29] LABS: CREATININE 7.9 mg/dL (0.7-1.3); POTASSIUM 4.7 mmol/L (3.5-5.1)
[2020-03-05 07:42] VITALS: BP 129/80
[2020-03-05 17:35] VITALS: BP 95/70
--- NOTE | 2020-03-05 18:28 | NUR ---
PT REFUSED ALL PO MEDS EXCEPT PAIN PILL. PT MOANS AND SCREAMS OUT. PT WILL NOT ANSWER QUESTIONS ABOUT PAIN SCORE. PT IS IN RESTRAINS TO BUE. PT HAS 2+ PULSES, PT MANAGED TO PULL OUT IV IN RUE. NEW IV IN RIGHT HAND. STUMP DRESSING IS CDI. PT REFUSED TO EAT OR DRINK. DIALYSIS COMPLETED WITH 3 LITERS TAKEN OFF. WILL CONTINUE TO MONITOR FOR SAFETY.
[2020-03-05 21:19] VITALS: BP 142/86
--- NOTE | 2020-03-06 06:05 | NUR ---
PATIENT ALERT AND ORIENTED X1-2. YELLING MOST OF THE NIGHT. UNABLE TO ORIENT HIM ENOUGH TO STOP. APPROX. THREE HOURS OF SLEEP DURING THE NIGHT. MEDICATED FOR PAIN AND SLEEP WITH DIFFERENT MEDICATIONS. BP MONITORED PER ORDER. THIS NURSE REPLACED DRESSING TO RIGHT STUMP X4 DURING THE NIGHT PATIENT WAS THRASHING AROUND IN THE BED MOST OF THE NIGHT - SOME BLEEDING, SHANTE INTACT. WRIST RESTRAINTS IN PLACE PER ORDER. PATIENT DISLODGED IV IN HIS RIGHT HAND AND IT WAS REPLACED IN HIS RIGHT AF WHICH WAS REINFORCED. WILL MONITOR.
[2020-03-06 07:55] VITALS: BP 145/93
--- NOTE | 2020-03-06 11:00 | NUR ---
Assumed care of pt at 0700. Pt confused and impulsive. On soft wrist restraints. New IV placed by IV team. Prn pain meds administered. IV antibiotics infusing. Dialysis T-Th-Sat. Dressing replaced by pm RN. Fall precautions in place. Will continue to monitor.
--- NOTE | 2020-03-06 11:16 | NUR ---
VASCULAR ACCESS NURSE ROUNDING- THIS PATIENT IS HAVING MULTIPLE PIV LINES PLACED EACH DAY AND IS A DIFFICULT STICK. UNABLE TO LAY THE PATIENT BACK FOR EJ PLACEMENT HE IS RESTLESS AND CAN BE COMBATIVE AT TIMES. LEFT ARM FISTULA, SO THE RIGHT ARM IS BEING STUCK MULTIPLE TIMES. I WOULD SUGGEST A CENTRAL ACCESS IF APPROVED BY NEPHROLOGY TO PRESERVE RIGHT ARM VEINS. THIS PATIENT WOULD NEED SEDATION FOR INSERTION HE IS NONCOMPLIANT SO WOULD NEED IR PLACEMENT IF CENTRAL ACCESS IS APPROVED.
[2020-03-06 16:00] VITALS: BP 139/69
[2020-03-06 19:25] VITALS: BP 105/77
[2020-03-06 19:26] VITALS: BP 108/65
--- NOTE | 2020-03-06 19:33 | NUR ---
1900 ASSUMED CARE OF PT AFTER BEDSIDE REPORT, PT IS AGITATED AND YELLING OUT ABOUT RESTRAINTS, RESTRAINTS AND SKIN ABOVE AND BELOW ASSESSED, WILL CONTINUE TO MONITOR Q 2 HOURS, FALL PRECAUTIONS IN PLACE AND PT IS IN ROOM NEAR NURSES STATION. BASELINE ASSESSMENT COMPLETED, WILL CONTINUE TO MONITOR
[2020-03-07 04:36] VITALS: BP 154/58
[2020-03-07 07:45] VITALS: BP 168/56
--- NOTE | 2020-03-07 14:36 | NUR ---
Case discussed with the care team. Pt less confused this am and restraints dc'd. PT/OT/ST and rehab medicine evaling for 5N stay vs snf referral. Pt is pod#3 S/p BKA and getting dialysis today. 5N liason to submit for insurance auth once all eval/tx notes are in the system.
[2020-03-07 16:15] VITALS: BP 135/55
--- NOTE | 2020-03-07 19:35 | NUR ---
1900 assumed care of pt after report and pt resting in bed alert and oriented x 3 with no complaints, answering questions appropriately, pt seems even more clear headed than this am. 1915 baseline assessment completed, dressing in place to RBKA, fall precautions in place, pt is close to desk, will continue to monitor
[2020-03-07 21:11] VITALS: BP 137/61
[2020-03-07 21:51] LABS: URINE BILIRUBIN NEGATIVE (Negative); URINE BLOOD TRACE (Negative); URINE CLARITY CLEAR; URINE COLOR YELLOW; URINE GLUCOSE-RANDOM* NEGATIVE (Negative); URINE KETONES NEGATIVE (Negative); URINE LEUKOCYTES NEGATIVE (Negative); URINE NITRITE NEGATIVE (Negative); URINE PROTEIN (DIPSTICK) 3+ (Negative)
[2020-03-07 22:30] LABS: BACTERIA 1-9 Few /HPF (None Seen); CASTS None Seen /LPF (None Seen); CRYSTALS None Seen /LPF (None Seen); SQUAMOUS None Seen /LPF (0-3); URINE RBC 0-2 Rare /HPF (0-2)
[2020-03-07 22:31] LABS: URINE WBC None Seen /HPF (0-5)
[2020-03-08 04:50] VITALS: BP 141/87
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
--- NOTE | 2020-03-08 06:09 | NUR ---
REPORT CALLED TO Lanny, AND PT TRANSFERRED TO [facility]
[2020-03-08 06:22] VITALS: BP 137/70
--- NOTE | 2020-03-08 06:59 | NUR ---
pt transfer from 4s this am at 06:15.pt vital sign taken and made comfortable in bed.
[2020-03-08 07:56] VITALS: BP 132/92
--- NOTE | 2020-03-08 08:14 | NUR ---
Nutrition followup: hx left BKA and now s/p right BKA on 03/04. BG controlled. Decline in intake since surgery, pt agitated, confused, poor insight. Ate 10-50% of meals yesterday. Add oral supplement glucerna bid until eating adeaquately again. Will need new baseline wt since surgery. Remains low nutrition risk with appropriate nutrition interventions in place
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
--- NOTE | 2020-03-08 15:24 | NUR ---
PT A&OX3, VSS, PAIN IN RIGHT STUMP. DIALYSIS COMPLETED TODAY 1500 OFF. PATIENT USED SLIDING BOARD TO BEDSIDE COMMODE TODAY. NO SIGNS OF DISTRESS. WILL CONTINUE TO MONITOR.
--- NOTE | 2020-03-08 17:07 | PATH ---
[facility] [address] [place] [address] PATHOLOGY RPT PROCEDURE Name: BALJIT SULLIVAN Room #: 453-P ADM IN M.R.#: [id number] Admission: 02/29/20 Date of : 62 Discharge: Report #: [id number] Path Case #: [id number] LCA Accession Number: [id number] . 01 Material submitted: . knee - RIGHT BELOW KNEE AMPUTATION. Modifiers: right . 01 Clinician provided ICD-10: E11.52 N18.6 . 01 Clinical history: . OSTEOMYELITIS RIGHT FOOT . 02 Diagnosis: Leg, right below knee amputation: - Ulceration associated with extensive gangrenous necrosis extending into subcutaneous tissue. - Underlying bone showing acute osteomyelitis. - Anterior and posterior tibial vessels showing marked luminal occlusion with calcific atherosclerosis. - Skin and soft tissue surgical margin viable. - Bone surgical margin grossly viable. (IUV:pit 03/08/2020) QTP 03/08/2020 1505 Local . 02 Electronically signed: . Maureen Castorena MD, Pathologist NPI- [id number] . 01 Gross description: . The specimen is received fresh in a red biohazard bag, labeled "Baljit Sullivan, right below knee amputation". Received is a right xpgxb-xcf-uyvx amputation measuring 16.8 cm from heel to distal foot, 15.8 cm from heel to skin margin, 27.7 cm from heel to tibial bone margin, and 30.3 cm from heel to fibular bone margin. The bone margins are smooth and transected in appearance, and appear grossly unremarkable. All five toes have been previously amputated. The skin and soft tissue margins appear viable. At the distal aspect of the foot, there is a poorly circumscribed, irregular in contour and brown-black lesion, with sutures present, measuring 11.6 x 6.3 cm, which is 15.3 cm from the closest skin margin. Sectioning through the anterior and posterior tibial vasculatures reveals pinpoint to patent lumens with a moderate amount of calcification. The specimen is submitted representatively as follows: . A1 skin and soft tissue margin A2 outside energy sales representatives section of bone from first metatarsal, [place] [address] PATHOLOGY RPT PROCEDURE Name: BALJIT SULLIVAN Room #: 453-P ADM IN M.R.#: [id number] Admission: 02/29/20 Date of : 62 Discharge: Report #: [id number] Path Case #: [id number] decalcification A3 outside energy sales representatives sections of lesion A4 anterior and posterior tibial vasculature margins, following light decalcification. (CAA; 03/07/2020) QAC/QAC 03/08/2020 1503 Local . 02 Pathologist provided ICD-10: L97.919, I96, M86.171, I70.209 . 02 CPT . 808541, 532374 Specimen Comment: A courtesy copy of this report has been sent to [phone] Specimen Comment: Report sent to Performed at: [address], [place] [id number] MD Rosendo Coronel MD Phone: [phone] Performed at: [address] [id number] MD Maureen Castorena MD Phone: [phone]
[2020-03-08 19:44] VITALS: BP 124/67
--- NOTE | 2020-03-09 05:06 | NUR ---
Pt. has rested quietly at intervals during the night when checked on during frequent rounds. He does yell out at times, but only for a brief moment. He does c/o left lower extremity pain and po pain med given (see emar) with some relief noted. Bed alarm is on.
[2020-03-09 07:58] VITALS: BP 115/81
--- NOTE | 2020-03-09 09:46 | NUR ---
REFERRAL FAXED TO [facility] FOR SKILLED STAY RECEIVED CONFIRMATION AND LEFT MSG WITH [facility] IN ADM.
[2020-03-09 12:30] LABS: HEMATOCRIT 25.5 % (42.0-52.0); HEMOGLOBIN 7.8 gm/dL (14.0-18.0); MCH 25.7 pg (26.0-34.0); MCHC 30.7 g/dL (28.0-37.0); MCV 83.6 fL (80.0-100.0); RBC 3.05 mil/uL (4.50-6.00); RDW 18.9 % (10.5-14.5); WBC 7.9 thou/uL (4.0-11.0)
[2020-03-09 12:53] LABS: CALCIUM 9.6 mg/dL (8.5-10.1); CREATININE 7.1 mg/dL (0.7-1.3); POTASSIUM 4.5 mmol/L (3.5-5.1)
[2020-03-09 13:15] VITALS: BP 135/67
--- NOTE | 2020-03-09 13:37 | NUR ---
IT HAD BEEN DETERMINED YESTERDAY THAT PT IS TOO LOW LEVEL FOR 5N ACUTE INPATIENT REHAB AT THIS TIME. SPOUSE HAD INDICATED THAT THEY WERE INTERESTED IN PT GOING TO [facility] IF THAT WERE THE CASE. REFERRAL WAS SENT TO [facility] YESTERDAY AFTERNOON. CM FOLLOWED UP WITH PT'S SPOUSE THIS AM SHE IS AWARE AND AGREEABLE. CM SPOKE WITH THE FACILITY AND THEY ARE ABLE TO ACCEPT PT FOR SKILLED REHAB SERVICES. REPEAT COVID DONE THIS AM JUST AWAITING RESULT. LOOKING TO SET UP [facility] ST[facility] VAN FOR AROUND [phone] THIS EVENING. FINAL ORDERS TO BE FAXED TO . REPORT TO BE CALLED TO .
--- NOTE | 2020-03-09 15:41 | NUR ---
PT A&OX4, VSS, PAIN IN RIGHT LEG. RIGHT LEG BKA THIS VISIT. PATIENT IS BILAT BKA. RIGHT LEG SHANTE, DRESSING CHANGE COMPLEETED. ASSESSMENT COMPLETED, MEDS GIVEN ORDERED. PAIN MEDICATION GIVEN. NO SIGNS OF DISTRESS. WILL CONTINUE TO MONITOR.
[2020-03-09 19:26] VITALS: BP 157/87
[2020-03-10 07:18] VITALS: BP 145/61
--- NOTE | 2020-03-10 08:06 | NUR ---
Assumed pt care at 1900. A/OX4 with forgetfulness noted. VSS. Denied pain on assessment. LUE fistula positive for bruit/thrill. Serafin BKA with dsg intact to Right stump. Fall precautions in place.
--- NOTE | 2020-03-10 11:21 | NUR ---
Received awake on bed. Due medications given as prescribed, able to swallow meds w/o difficulty. On room air, using CPAP at night. Vital signs stable. On carb controlled diet, tolerating well; no nausea, no vomiting and no abdominal pain noted. On blood sugar monitoring, taken and recorded accordingly; with sliding scale ordered. On MS, not on telemetry; no complains and signs of chest pain, heaviness, and crushing sensation. On dialysis every T--Sat; dialysis started during shift change; tolerating well, as per dialysis nurse- to hold off AM meds for now, to be given after dialysis instead. Falls bundle in place. Assisted in ADLs. Complained of pain, due PRN pain meds given as prescribed.
[2020-03-10 15:30] VITALS: BP 130/69
--- NOTE | 2020-03-10 17:36 | NUR ---
[facility] updated throughout the day. They were planning on admitting him after dialysis today;however his covid test results are not back yet. All parties updated. Will plan on dc to SNF tomorrow once covid neg result are confirmed. Will need stretcher van arranged thru [facility] and time confirmed with pt's spouse as well as the care team.
--- NOTE | 2020-03-11 07:03 | NUR ---
VSS-AFEBRILE. OCCASIONAL PERIODS OF CONFUSION OVERNIGHT. PAIN WELL MANAGED WITH ORAL PAIN MEDICATIONS. VOIDS PER URINAL WITHOUT DIFFICULTY. NEW IV STARTED IN RIGHT FOREARM/WRIST. FALL PRECAUTIONS IN PLACE.
[2020-03-11 08:18] VITALS: BP 145/87
[2020-03-11 10:07] VITALS: BP 145/61
--- NOTE | 2020-03-11 10:16 | NUR ---
negative covid test sent to [facility]. [facility] can accept for skilled rehab today. [facility] van scrap picker at 1230. bedside nurse to call report to [phone]. [id number] faxed and sent to [facility]. send chart copy with dc orders.
--- NOTE | 2020-03-11 11:37 | NUR ---
Received awake on bed. Due medications given as prescribed, able to swallow meds w/o difficulty. Vital signs stable. On MS, not on telemetry; no complains and signs of chest pain, crushing sensation and heaviness. On room air during day time, CPAP at night. On carb controlled diet- tolerating well; no nausea, no vomiting, no abdominal pain noted. On blood sugar monitoring, taken and recorded accordingly; with sliding scale insulin ordered. Falls bundle in place. Continent of bowel and bladder, able to use urinal at times; dialysis patient- still urinating in small amounts. Dialysis schedule T--Sat; dialysis fistual at Left upper arm; dressing C/D/I. With SL at R FA- intact; on IV antibiotics. With new R BKA- dressing changed today; discharge photo taken today. Pt seen and examined by Dr Hung and luke LEIGH results came back: negative; Dr Hung informed that discharge instructions to be complated; transport set up at 1230- pt updated. Discharge instructions, follow up schedule given and instructed.
[2020-03-11] MEDS ORDERED: OLANZAPINE2.5 MG PO (12:01)
[2020-03-11] MEDS ORDERED: CALTRATE-600 W1 EACH PO (12:01)
[2020-03-11] MEDS ORDERED: PROTONIX 20 MG20 M1 PO (12:01)
[2020-03-11] MEDS ORDERED: ACETAMINOPHEN325 M1 PO (12:01)
[2020-03-11] MEDS ORDERED: BACTRIM DS TAB1 EAC1 PO (12:01)
[2020-03-11] MEDS ORDERED: ZYPREXA 5 MG TAB5 M1 PO (12:01)
--- NOTE | 2020-03-11 12:12 | NUR ---
PT DISCHARGING TODAY TO [facility] SKILLED FAXED DC ORDERS/SUMMARY DA-124 AND COVID RESULT TO FACILITY SPOKE WITH [facility] IN ADM SHE RECEIVED PAPERWORK. ARRANGED TRANSPORT WITH [facility] FACILITY JUST HAS TRANSPORT FOR WC VAN TRANSPORT AT 123O. SPOKE WITH PT'S (GARY) OF DC AND TIME OF TRANSPORT. UNIT NOTIFIED AND CHART COPY PER US. RN TO CALL REPORT TO [phone].
--- NOTE | 2020-03-11 15:12 | O ---
[facility] [place] [address] OPERATIVE REPORT Name: ROWENA SOSA Room #: 453-P [facility] IN M.R.#: [id number] Admission: 02/29/20 Attend Phys: Oziel Rebolledo MD Discharge: 03/11/20 Date of : 62 Report #: [id number] THIS REPORT FOR: cc: Roe Soira James A. DO Kneidel, Matthew T. MD ~ CC: Roe Rebolledo DATE OF SERVICE: 03/04/2020 PREOPERATIVE DIAGNOSIS: Right foot osteomyelitis. POSTOPERATIVE DIAGNOSIS: Right foot osteomyelitis. PROCEDURE: Right rntdu-jvr-yazh amputation. SURGEON: Dr. Jonathan Lee AQUATICS MANAGER: Bri Davenport. ANESTHESIA: General. ESTIMATED BLOOD LOSS: Minimal. DRAINS: One Hemovac drain was placed. COMPLICATIONS: There were no complications. DESCRIPTION OF PROCEDURE: The patient was brought to the operating room where he was placed under general anesthesia. Once under adequate general anesthesia, his right lower extremity was prepped and draped in a sterile manner. The extremity was elevated and a tourniquet placed to 300 mmHg. A fishmouth incision about the mid to distal tibia was then made. This was dissected down through soft tissue, cauterizing any vessels along the way and clamping other larger vessels for later ligation. Dissection was carried directly down to the tibia and fibula. The tibial periosteum was then elevated and an [place] was then used to retract. An oscillating saw was then used to transect the tibia. This was then bevelled anteriorly with the oscillating saw as well and 2 cm proximal to this amputation site, the fibula was transected in an oblique fashion thus completing the amputation. The distal extremity was removed. The wound was then irrigated copiously. The posterior tibial nerve was identified and incised proximally in the wound, sharply with a #15 blade. The posterior tibial vessels were then ligated with 0-silk suture as well as the peroneal and anterior vasculature, all of which was atherosclerotic. Once complete, the wound was irrigated copiously and closed with 0-Vicryl in the [facility] and [address] [address] OPERATIVE REPORT Name: ROWENA SOSA Room #: 453-P DIS IN [facility].#: [id number] Admission: 02/29/20 Attend Phys: Oziel Rebolledo MD Discharge: 03/11/20 Date of : 62 Report #: [id number] deep fascial layers, 2-0 Vicryl in the subcutaneous tissues and kunal were used for the skin. Prior to wound closure, a Hemovac drain was placed medially. Once complete, the wound was dressed with Xeroform, 4 x 4s and a sterile, soft compressive dressing was placed. Tourniquet was let down at approximately 45 minutes. There were no complications from the procedure. The patient tolerated the procedure well and was taken to recovery room without incident. <ELECTRONICALLY SIGNED> By: Jonathan Lee MD 03/11/20 1512 1243 191 Jonathan Lee MD /nt
--- NOTE | 2020-03-14 07:41 | HC ---
[facility] [place] [address] CONSULTATION Name: ROWENA SOSA Room #: 453-P [facility] IN M.R.#: [id number] Admission: 02/29/20 Attend Phys: Oziel Rebolledo MD Discharge: 03/11/20 Date of : 62 Report #: [id number] THIS REPORT FOR: cc: Roe Soria James A. DO Al-Homer Starr MD ~ DATE OF SERVICE: 03/02/2020 REASON FOR CONSULTATION: End-stage renal disease. REASON FOR PRESENTATION: Right lower extremity wound infection. HISTORY OF PRESENT ILLNESS: Very well-known patient to me, 59-year-old with history of end-stage renal disease, maintained on hemodialysis. He had recent right-sided TMA of his foot on 01/21. He is known to have end-stage renal disease, maintained on hemodialysis every Saturday, and Saturday. He has cardiomyopathy with severe obstructive sleep apnea. He has history of noncompliance. He was admitted because his wound care nursing staff was very concerned about the look on his right foot. The patient was admitted and was found to have an infected wound. He denies any fever or chills. He was initiated on appropriate antibiotic therapy. Wound Care was consulted. I was asked to assist with the management of his hemodialysis. PAST MEDICAL HISTORY: 1. End-stage renal disease, maintained on hemodialysis every Saturday, and Saturday. 2. Severe obstructive sleep apnea. 3. Diabetes mellitus. 4. Hypertension. 5. Hyperlipidemia. 6. Peripheral vascular disease. 7. Recent TMA. 8. Left BKA. 9. Multiple cardiac stents. 10. AV fistula placement. SOCIAL HISTORY: No drug, alcohol abuse. Lives with his . FAMILY HISTORY: Diabetes mellitus. ALLERGIES: None. MEDICATIONS: 1. Folic acid. [facility] [address] [place] [address] CONSULTATION Name: ROWENA SOSA Room #: 453-P DIS IN [facility].#: [id number] Admission: 02/29/20 Attend Phys: Oziel Rebolledo MD Discharge: 03/11/20 Date of : 62 Report #: [id number] 2. Carvedilol. 3. ____. 4. Aspirin. 5. Atorvastatin. REVIEW OF SYSTEMS: GENERAL: No fever or chills. CARDIOVASCULAR: No chest pain or palpitation. PULMONARY: No cough or hemoptysis. GASTROINTESTINAL: No nausea or vomiting. GENITOURINARY: He is anuric. MUSCULOSKELETAL: As per the history of present illness. PHYSICAL EXAMINATION: VITAL SIGNS: Temperature 36.9, pulse rate is 80, respiratory rate is 18, blood pressure is 137/73. HEAD AND NECK: No jugular venous distention, no bruit, no thyromegaly. CHEST: No crackles. CARDIOVASCULAR: Regular with no rub detected. ABDOMEN: Soft, nontender with no hepatosplenomegaly. EXTREMITIES: Lower extremities, left BKA. Right TMA with purulent drainage from his wound. LABORATORY DATA: White blood cell count 12.2, hemoglobin 8.6, platelets ____. Sodium 140, potassium 4.1, BUN is 40, creatinine is 7.5. ASSESSMENT, IMPRESSION AND PLAN: 1. End-stage renal disease. 2. Infected right transmetatarsal amputation wound. 3. Continue with the hemodialysis every Saturday, and Saturday with aggressive ultrafiltration. 4. Wound Care. 5. Looks like that the patient might need BKA per the Wound Care note. 6. Resume his dialysis related medications. 7. Resume blood pressure medications. 8. We will continue to follow during his hospital stay. <ELECTRONICALLY SIGNED> By: Homer Bull MD 03/14/20 0741 0746 0801 Homer Bull MD /nt
--- NOTE | 2020-03-15 17:12 | HC ---
[facility] [place] [address] CONSULTATION Name: ROWENA SOSA Room #: 453-P [facility] IN M.R.#: [id number] Admission: 02/29/20 Attend Phys: Oziel Rebolledo MD Discharge: 03/11/20 Date of : 62 Report #: [id number] THIS REPORT FOR: cc: Roe Soria James A. DO Althoff, Jeffrey R. MD ~ DATE OF SERVICE: 03/01/2020 CHIEF COMPLAINT: Nonhealing transmetatarsal amputation. HISTORY OF PRESENT ILLNESS: This is a 59-year-old male patient with whom I am familiar with a history of diabetes, severe peripheral vascular disease and end-stage renal disease, who has had a prior left below-knee amputation. He developed progressive gangrene involving his right foot. He was evaluated. He had a vascular evaluation. There were no revascularization options available. At that time, it was recommended that he undergo below-knee amputation; however, he elected to go through a transmetatarsal amputation on the right side. That area has become necrotic. It is very painful. He is here for further evaluation and treatment. The patient is in a lot of great deal of pain. He is having somewhat significant difficulty answering questions. PAST MEDICAL HISTORY: Positive for diabetes, severe peripheral vascular disease, history of smoking, he has only recently stopped, end-stage renal disease, requiring dialysis; hypertension, and moderate protein-calorie malnutrition. MEDICATIONS: Include aspirin, atorvastatin, folic acid, melatonin, vancomycin, carvedilol, epoetin, hydralazine, hydrocodone. ALLERGIES: No known drug allergies. SOCIAL HISTORY: The patient is a prior smoker, having recently quit within the last several months. Denies alcohol use. FAMILY HISTORY: Noncontributory. REVIEW OF SYSTEMS: CONSTITUTIONAL: The patient denies fever, chills, or weight loss. NEUROLOGICAL: The patient denies focal weakness, numbness or tingling. EYES: The patient denies visual changes, redness, or drainage. ENT: The patient denies earache, nasal drainage, sore throat. CARDIOVASCULAR: The patient denies chest pain, palpitations or diaphoresis. PULMONARY: The patient denies cough or shortness of breath. GASTROINTESTINAL: The patient denies nausea, vomiting, diarrhea or abdominal pain. [address] [address] CONSULTATION Name: ROWENA SOSA Room #: 453-P [facility] IN M.R.#: [id number] Admission: 02/29/20 Attend Phys: Oziel Rebolledo MD Discharge: 03/11/20 Date of : 62 Report #: [id number] ORTHOPEDIC: Complains of severe pain in his right leg. Other systems in a 14-point review of systems are negative. PHYSICAL EXAMINATION: VITAL SIGNS: At this time include temperature 36.7, pulse 104, respiratory rate 18, blood pressure 198/148. GENERAL: This is a chronically ill-appearing male patient who appears to be in moderate to severe distress. HEENT: Head normocephalic. NECK: Supple. LUNGS: Diminished. HEART: Regular rhythm. ABDOMEN: Soft, obese, nontender. EXTREMITIES: Lower extremities demonstrate a previously healed left below-knee amputation on the right foot, transmetatarsal amputation site is clearly necrotic with dry gangrene present. It is very tender to palpation, although there is minimal odor or drainage at this time. NEUROLOGIC: The patient is alert. His level of orientation is difficult to assess due to his extreme discomfort. LABORATORY DATA: Include sodium 140, potassium 4.4, chloride 100, CO2 of 25, BUN 61, creatinine 10.1, glucose 118. White blood cell count 11.2 with a hemoglobin of 8.6. CLINICAL IMPRESSION: 1. Progressive gangrenous change to the right foot, status post prior transmetatarsal amputation on 02/21/2013. 2. Prior left below-knee amputation. 3. Diabetes mellitus secondary to severe peripheral arterial disease with no revascularization options. 4. Hypertension. 5. Generalized debility. 6. History of recent tobacco abuse. 7. Moderate protein-calorie malnutrition with albumin of 2.6. RECOMMENDATIONS: At this point in time, we will recommend simply Betadine paint and dry gauze to the right foot. He will need a below-knee amputation. Therefore, we will consult Orthopedics to proceed as such. He will need ongoing aggressive management of his underlying medical issues including diabetes, hypertension, end-stage renal disease. He will need ongoing nutritional support [address] [address] CONSULTATION Name: ROWENA SOSA Room #: 453-P DIS IN ..#: [id number] Admission: 02/29/20 Attend Phys: Oziel Rebolledo MD Discharge: 03/11/20 Date of : 62 Report #: [id number] to maximize wound healing. All questions have been answered. I appreciate having been asked to see him in consultation. <ELECTRONICALLY SIGNED> By: Claudio Amador MD 03/15/20 1712 1219 22 Claudio Amador MD /nt
== END 2020-03-11 14:10 | DRG 474 ==
LOC: ER 15:17 → 4W 21:56 → EROBS 21:56 → 4W 23:43 → 4S 03-04 13:54 → 4W 03-08 06:03
PROVIDERS: Anesthesiology; Internal Medicine; Nurse Practitioner; Nurse Practitioner Family; Psychiatry & Neurology Psychiatry; ADMIT Internal Medicine; ATTEND Internal Medicine
PROC: 5A09357 Assistance with Respiratory Ventilation, Less than 24 Consecutive Hours, Continuous Positive Airway Pressure (ICD-10-PCS; 2020-03-02)
PROC: 0Y6H0Z3 Detachment at Right Lower Leg, Low, Open Approach (ICD-10-PCS; principal; 2020-03-04)
PROC: 5A1D70Z Performance of Urinary Filtration, Intermittent, Less than 6 Hours Per Day (ICD-10-PCS; 2020-03-05)
PROC: 5A1D70Z Performance of Urinary Filtration, Intermittent, Less than 6 Hours Per Day (ICD-10-PCS; 2020-03-08)
PROC: 5A09357 Assistance with Respiratory Ventilation, Less than 24 Consecutive Hours, Continuous Positive Airway Pressure (ICD-10-PCS; 2020-03-09)
DX: T87.43 Infection of amputation stump, right lower extremity (principal); N18.6 End stage renal disease; G92 Toxic encephalopathy; E43 Unspecified severe protein-calorie malnutrition; R65.11 Systemic inflammatory response syndrome (SIRS) of non-infectious origin with acute organ dysfunction; E11.52 Type 2 diabetes mellitus with diabetic peripheral angiopathy with gangrene; I12.0 Hypertensive chronic kidney disease with stage 5 chronic kidney disease or end stage renal disease; M86.8X7 Other osteomyelitis, ankle and foot; I42.9 Cardiomyopathy, unspecified; L03.115 Cellulitis of right lower limb; I96 Gangrene, not elsewhere classified; E11.69 Type 2 diabetes mellitus with other specified complication; E11.65 Type 2 diabetes mellitus with hyperglycemia; E11.22 Type 2 diabetes mellitus with diabetic chronic kidney disease; E78.5 Hyperlipidemia, unspecified; G47.33 Obstructive sleep apnea (adult) (pediatric); F41.9 Anxiety disorder, unspecified; F32.9 Major depressive disorder, single episode, unspecified; E11.51 Type 2 diabetes mellitus with diabetic peripheral angiopathy without gangrene; D63.1 Anemia in chronic kidney disease; Z20.828 Contact with and (suspected) exposure to other viral communicable diseases; Y83.8 Other surgical procedures as the cause of abnormal reaction of the patient, or of later complication, without mention of misadventure at the time of the procedure; Z86.73 Personal history of transient ischemic attack (TIA), and cerebral infarction without residual deficits; Z89.512 Acquired absence of left leg below knee; I25.2 Old myocardial infarction; Z79.82 Long term (current) use of aspirin; Z79.899 Other long term (current) drug therapy; Z99.2 Dependence on renal dialysis; Y92.89 Other specified places as the place of occurrence of the external cause; Z68.33 Body mass index [BMI] 33.0-33.9, adult
CPT/HCPCS: 10040; 10195; 32100; 50010; 50101; 50386; 51412; 53000; 56524; 56525; 57091; 57180; 62110; 62900; 70005

== ENCOUNTER 2020-04-06 10:26 | Day surgery (SDC) | payer OTHER ==
[~2020-04-06] VITALS: Ht 182.9 cm; Wt 113.4 kg
--- NOTE | ~2020-04-06 | O ---
[facility] [place] [address] OPERATIVE REPORT Name: ROWENA SOSA Room #: 150-2 [facility]..#: [id number] Admission: 04/06/20 Attend Phys: Jonathan Lee MD Discharge: Date of : 62 Report #: [id number] THIS REPORT FOR: cc: Roe Soria James A. DO Kneidel, Matthew T. MD ~ DATE OF SERVICE: 04/06/2020 PREOPERATIVE DIAGNOSIS: Right yzhlk-pou-xvaq amputation stump wound healing problem. POSTOPERATIVE DIAGNOSIS: Right bstdz-gwp-kgwz amputation stump wound healing problem. PROCEDURE: Right hciqx-bka-njrw amputation revision. SURGEON: Dr. Jonathan Lee. ANESTHESIA: General. ESTIMATED BLOOD LOSS: Minimal. DRAINS: No drains. TOURNIQUET TIME: 45 minutes. COMPLICATIONS: There were no complications. BUSINESS MACHINE OPERATOR: Bri Davenport. DESCRIPTION OF PROCEDURE: The patient was brought to the operating room where he was placed under general anesthesia. Once under adequate general anesthesia, his right lower extremity was prepped and draped in sterile manner. The extremity was elevated and tourniquet placed to 300 mmHg. The patient's previous scar and incision was then ellipsed sharply with a 15 blade and subsequently taken directly down to the bone anteriorly and excised. The distal tibia and fibula were then exposed and an oscillating saw was used to resect these. These were beveled anteriorly approximately 2 inches was removed from the tibia and an inch from the fibula. The posterior flap was then debrided with tenotomy scissors to be debulked it. Any vessels were cauterized. The posterior tibial artery was then suture ligated once again with 0 silk suture. Once complete, the wound was irrigated copiously and closed with #1 Vicryl in deep fascia, #1 Vicryl in the subcutaneous tissues, 2-0 nylon and kunal were used for the skin. The wound was dressed with Xeroform, 4 x 4s, and sterile soft compressive dressing was placed. Tourniquet was let down at approximately [facility] [address] [place] [address] OPERATIVE REPORT Name: SHEILAROWENA Room #: 150-2 [facility]#: [id number] Admission: 04/06/20 Attend Phys: Jonathan Lee MD Discharge: Date of : 62 Report #: [id number] 45 minutes. There were no complications from the procedure. The patient tolerated the procedure well and was taken to recovery room without incident. By: 1232 1241 Jonathan Lee MD /nt
[~2020-04-06 10:26] MED LIST changes: +ACETAMINOPHEN325 M1 PO; +BACTRIM DS TAB1 EAC1 PO; +CALTRATE-600 W1 EACH PO; +OLANZAPINE2.5 MG PO; +PROTONIX 20 MG20 M1 PO; +ZYPREXA 5 MG TAB5 M1 PO
[2020-04-06 11:02] LABS: HEMOGLOBIN 9.6 gm/dL (14.0-18.0); WBC 4.7 thou/uL (4.0-11.0)
[2020-04-06 11:05] LABS: HEMATOCRIT 31.4 % (42.0-52.0); MCH 26.9 pg (26.0-34.0); MCHC 30.7 g/dL (28.0-37.0); MCV 87.6 fL (80.0-100.0); RBC 3.58 mil/uL (4.50-6.00); RDW 24.8 % (10.5-14.5)
[2020-04-06 11:22] LABS: CALCIUM 9.6 mg/dL (8.5-10.1); CREATININE 8.6 mg/dL (0.7-1.3); POTASSIUM 4.8 mmol/L (3.5-5.1)
[2020-04-06 11:27] LABS: ALBUMIN 2.8 g/dL (3.4-5.0); TOTAL BILIRUBIN 0.5 mg/dL (0.2-1.0); TOTAL PROTEIN 7.7 g/dL (6.4-8.2)
[2020-04-06] MEDS ORDERED: PERCOCET 7.5-31 EAC1 PO (12:26)
[2020-04-06 13:51] VITALS: BP 169/92
== END 2020-04-06 13:46 | disposition home or self-care (01) ==
LOC: TBA 10:26 → OR 10:26
PROVIDERS: Anesthesiology; ATTEND Orthopaedic Surgery Foot and Ankle Surgery
DX: T87.43 Infection of amputation stump, right lower extremity (principal); I96 Gangrene, not elsewhere classified; I12.0 Hypertensive chronic kidney disease with stage 5 chronic kidney disease or end stage renal disease; E11.22 Type 2 diabetes mellitus with diabetic chronic kidney disease; I25.10 Atherosclerotic heart disease of native coronary artery without angina pectoris; N18.6 End stage renal disease; E78.5 Hyperlipidemia, unspecified; F32.9 Major depressive disorder, single episode, unspecified; D64.9 Anemia, unspecified; F41.9 Anxiety disorder, unspecified; G47.30 Sleep apnea, unspecified; K21.9 Gastro-esophageal reflux disease without esophagitis; Z98.890 Other specified postprocedural states; Z79.899 Other long term (current) drug therapy; Z79.4 Long term (current) use of insulin; Z86.73 Personal history of transient ischemic attack (TIA), and cerebral infarction without residual deficits; Z87.891 Personal history of nicotine dependence; Y83.8 Other surgical procedures as the cause of abnormal reaction of the patient, or of later complication, without mention of misadventure at the time of the procedure
CPT/HCPCS: 50010; 50101; 50386; 51412; 53000; 56524; 56525; 57091; 57180; 62110; 62900; 70005

== ENCOUNTER 2020-04-08 09:55 | Inpatient (IN) | payer OTHER ==
[~2020-04-08] VITALS: Ht 142.2 cm; Wt 100.6 kg
[~2020-04-08 09:55] MED LIST changes: +PERCOCET 7.5-31 EAC1 PO
[2020-04-08 09:58] VITALS: BP 169/62
--- NOTE | 2020-04-08 10:34 | EKG ---
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: benjamin : 1960 Requested By: Ismael Coleman Order Number: [id number] MD: Minor Najera Measurements Intervals [place] Rate: 87 P: 41 DC: 193 QRS: -15 QRSD: 88 T: 120 QT: 369 QTc: 444 Interpretive Statements Sinus rhythm Inferior infarct, old Anterior infarct, old Lateral leads are also involved Compared to ECG 01/22/2020 09:46:36 First degree AV block no longer present Poor R-wave progression no longer present T-wave abnormality no longer present Myocardial infarct finding still present Electronically Signed On 04-08-2020 10:34:19 TABLET REPAIR by Minor Najera [email or web address] <ELECTRONICALLY SIGNED> By: Minor Najera MD, [facility] 04/08/20 1034 1026 1026 Minor Najera MD, [facility] /EPI
[2020-04-08 10:55] LABS: BE(vivo) 0.9 mmol/L (-2 to +3); HCO3 26.3 mmol/L (22.0-26.0); PCO2 45.5 mmHg (35.0-45.0); PO2 67.2 mmHg (80.0-100.0)
[2020-04-08 11:13] LABS: ABSOLUTE NEUTROPHILS 4.1 thou/uL (1.4-8.2); BASOPHILS 0.2 % (0.0-2.0); EOSINOPHILS 0.9 % (0.0-3.0); HEMATOCRIT 27.2 % (42.0-52.0); HEMOGLOBIN 8.6 gm/dL (14.0-18.0); LYMPHOCYTES 10.4 % (24.0-44.0); MCH 27.6 pg (26.0-34.0); MCHC 31.4 g/dL (28.0-37.0); MCV 87.9 fL (80.0-100.0); MONOCYTES 12.3 % (1.0-8.0); PLATELET COUNT 219 thou/uL (150-400); POLYS 76.2 % (36.0-66.0); RDW 25.8 % (10.5-14.5); WBC 5.4 thou/uL (4.0-11.0)
[2020-04-08 11:26] LABS: CALCIUM 9.9 mg/dL (8.5-10.1); POTASSIUM 5.2 mmol/L (3.5-5.1)
[2020-04-08 11:29] LABS: CREATININE 10.6 mg/dL (0.7-1.3)
--- NOTE | 2020-04-08 14:02 | NUR ---
SPOKE WITH JAMAAL REGARDING HEPARIN AND DYLASIS, DOCTOR OK'D TO GIVE HEPARIN
--- NOTE | 2020-04-08 14:44 | NUR ---
59-year-old -[place] male with end-stage renal failure on hemodialysis unknown location and timing who presents with altered mental status progressive over the last week. Patient presents via EMS. The patient has longstanding history of opiate-induced narcosis as well as other medications likely contributing to his mental status decline. Per the the patient is COVID Positive and left [facility] last week for pneumonia. Patient did undergo a right below the knee amputation revision from Dr. Lee and discharged back home afterwards. NOTE COVID PCR test ordered and collected on 04-08-20 without results. The patient has been admitted to hospitalist Dr. Martínez with Encephalopathy, Hypoxia, narcotic use, s/p Right BKA and history of non-compliance with HD. Spouse reports last HD on 04-02-20. NOTE: Patient last discharged on 03-11-2020 to [facility] with [facility]-124 paperwork for skilled care. Patients spouse Swati Sullivan is listed as next of kin and person of notification at [phone]. Spoke with and concerns with home assistance beyond Home Health. Discussed private duty services and her concern is ability to pay. Told her we would need to look at his discharge needs which may include skilled care from this admission. Also informed her that CM would continue to follow this case for all discharge needs.
[2020-04-08 16:21] VITALS: BP 157/104
[2020-04-08 16:40] LABS: AMP/METHAMP Negative (Negative); BARBITURATES Negative (Negative); BENZODIAZEPINES Negative (Negative); COCAINE Negative (Negative); METHADONE Negative (Negative); OPIATES POSITIVE (Negative); PCP Negative (Negative)
[2020-04-08 16:55] VITALS: BP 166/86
[2020-04-08 20:00] VITALS: BP 151/88
--- NOTE | 2020-04-08 20:12 | NUR ---
Patient admitted from ER due to AMS at 1655; transferred to bed safely. On telemetry; no complains and signs of chest pain, crushing sensation and heaviness. On nothing per orem- pt informed and aware; mouth swabs offered- refused. Vital signs stable. On blood sugar monitoring, taken and recorded accordingly. Pt very confused, alert to self only. Admission assessment, history and education done; forms to be signed- pt confused and no relative available at bedside. No nausea, no vomiting and no abdominal pain noted. Incontinent of bowel and bladder, checked frequently and changed as needed. Had a bowel movement today. With SL at R FA- wrapped in coban. With kunal at R stump- dressing changed today; photo taken- Dr Amador and Yu at bedside during dressing changed. Complained of pain, due PRN pain meds given as prescribed. Reviewed pt's orders and saw that there is covid swab ordered- called ER and staff said that they already did the swab- verified with Frandy(lab) and he said that he has the specimen at lab- Night RN informed. Dialysis scheduled for tomorrow- pt's Swati called and US informed her re: this. To continue monitoring patient.
--- NOTE | 2020-04-08 20:40 | NUR ---
Lab called with positive covid lab results. meter repair shop supervisor and Taisha MCKEE called and notified. Pt. to transfer to [facility] when bed is available. Pt. bed alarm is on.
--- NOTE | 2020-04-08 22:30 | NUR ---
Pt. has been very restless and has sounded off his bed alarm several times. He is getting out of the bed and at times hard to redirect. Pt. very im- pulsive. Taisha called and notified, see new orders. Haldol given (see emar). Pt. keeps scratching at himself and will not leave his tele pads on. Pt. transfered to [facility] and report given to Shailesh VELIZ.
[2020-04-09] VITALS (35 sets, daily range): BP systolic 136–194; BP diastolic 71–133
--- NOTE | 2020-04-09 02:36 | NUR ---
PT HAS BEEN IMPILSIVE AND GETTING OUT OF BED. HEALTH CARE AIDE NOTIFIED. PT PRN MEDS GEVEN WITH LITTLE SUCCESS. WILL CONTINUE TO MONITOR.
[2020-04-09 05:45] LABS: HCO3 20.7 mmol/L (22.0-26.0); PO2 75.3 mmHg (80.0-100.0); sO2 89.6 % (92.0-98.0)
[2020-04-09 05:46] LABS: PCO2 65.2 mmHg (35.0-45.0); pH 7.119 (7.360-7.450)
--- NOTE | 2020-04-09 08:10 | NUR ---
SPOKE WITH PATIENT'S GARY, STATED THAT HE LAST HAD DIALYSIS 1 WEEK AGO.
--- NOTE | 2020-04-09 08:28 | NUR ---
PATIENT ADMITTED TO ICU BED 238 POST CODE FROM ROOM 350 VIA BED AT 0715. PATIENT ATTACHED TO CARDIAC MONITORING, INTUBATED DURING CODE AND OG PLACED. AT 0730 XRAY DONE FOR ETT AND OG TUBE PLACEMENT. ACUCHECK DONE. DIALYSIS NURSE HERE, SETTING UP FOR STAT DIALYSIS.
[2020-04-09 08:38] LABS: HEMATOCRIT 26.7 % (42.0-52.0); HEMOGLOBIN 8.2 gm/dL (14.0-18.0); MCH 27.3 pg (26.0-34.0); MCHC 30.6 g/dL (28.0-37.0); MCV 89.2 fL (80.0-100.0); RDW 25.5 % (10.5-14.5); WBC 10.3 thou/uL (4.0-11.0)
[2020-04-09 08:49] LABS: PLATELET COUNT 141 thou/uL (150-400)
--- NOTE | 2020-04-09 08:51 | NUR ---
Code responder from ICU. See code blue sheet for details. No bed available at this time in ICU. This nurse remained with patient in room 353 till ICU bed ready. During this time vital signs were monitored Q15 minutes. Dr. Gomez notified of patient code. PRINTING GREY CLOTH TENDER notfied of code. Orders received. Consults called to Brad. 0545- 185/104 95% HR 132 0550- Sinus tach on the moitor. Patient nonresponsive at this time. Paralytic given at time of intubation. 150/91 94% HR 126 Vent settings are AC 16 TV 550 60% Peep 8 7.5 ETT 26@lip 0555- 143/88 96% HR 117 Placed de jesus without difficulty 16f 10cc baloon. Scant u/o noted. Left Upper arm fistula noted. right Fa PIV in place as well. Unable to place additional PIV. 0610- 128/73 99% HR 98 0615- Dr. Gomez at the bedside. Patient will start dialysis upon arrival to ICU 0625- Propofol started. difficult to infuse due to PIV. Blood Glucose 146 117/65 96% HR 87 OG placed without difficutly. Immediate return of 200 mls of bile stomach secretions. 0635- HR 89 98% 121/64 0645- RT at bedside to assist with transport to ICU. 0700- Report given to SHAREPOINT ADMIN.
[2020-04-09 08:55] LABS: CALCIUM 9.6 mg/dL (8.5-10.1); CREATININE 11.2 mg/dL (0.7-1.3); POTASSIUM 5.5 mmol/L (3.5-5.1)
[2020-04-09 09:05] LABS: ALBUMIN 2.5 g/dL (3.4-5.0); MAGNESIUM 2.4 mg/dL (1.8-2.4); TOTAL BILIRUBIN 0.6 mg/dL (0.2-1.0); TOTAL PROTEIN 7.2 g/dL (6.4-8.2); TROPONIN-I 0.12 ng/mL (<0.06)
[2020-04-09 09:19] LABS: ABSOLUTE NEUTROPHILS 9.2 thou/uL (1.4-8.2); PLATELET ESTIMATE NORMAL
[2020-04-09 09:20] LABS: ANISOCYTOSIS 2+
--- NOTE | 2020-04-09 10:00 | NUR ---
CENTRAL LINE INSERTED VIA LIJ BY DR PENA AT BEDSIDE WITH ULTRASOUND. POST CHEST XRAY DONE AT BEDSIDE. HEMODIALYSIS CONTINUES. WILL CONTINUE TO MONITOR.
[2020-04-09 12:16] LABS: BE(vivo) 5.9 mmol/L (-2 to +3); HCO3 30.8 mmol/L (22.0-26.0); PO2 81.4 mmHg (80.0-100.0); pH 7.435 (7.360-7.450); sO2 96.2 % (92.0-98.0)
--- NOTE | 2020-04-09 14:00 | NUR ---
HEMODIALYSIS COMPLETED AT 1330. PROPOFOL TITRATED FOR VENTILATOR SEDATION. GARY CALLED IN AND UPDATED ON HIS PROGRESS.
--- NOTE | 2020-04-09 18:32 | NUR ---
PATIENT IS SLOWLY PROGRESSING TOWARDS OUTCOME GOALS HE IS RESTING QUIETLY ON THE VENT. BREATHE SOUNDS IMPROVED WITH DIALYSIS. BLOOD GLUCOSE 68, DEXTROSE GIVEN PER ORDER. WILL CONTINUE TO MONITOR.
[2020-04-10] VITALS (36 sets, daily range): BP systolic 123–175; BP diastolic 66–90
[2020-04-10 03:58] LABS: BE(vivo) 4.8 mmol/L (-2 to +3); HCO3 28.9 mmol/L (22.0-26.0); PCO2 40.8 mmHg (35.0-45.0); PO2 70.7 mmHg (80.0-100.0); pH 7.468 (7.360-7.450); sO2 95.1 % (92.0-98.0)
[2020-04-10 04:51] LABS: ABSOLUTE NEUTROPHILS 2.2 thou/uL (1.4-8.2); BASOPHILS 0.7 % (0.0-2.0); EOSINOPHILS 1.1 % (0.0-3.0); HEMATOCRIT 25.6 % (42.0-52.0); HEMOGLOBIN 7.9 gm/dL (14.0-18.0); LYMPHOCYTES 14.9 % (24.0-44.0); MCHC 30.8 g/dL (28.0-37.0); MCV 87.6 fL (80.0-100.0); MONOCYTES 17.5 % (1.0-8.0); PLATELET COUNT 166 thou/uL (150-400); POLYS 65.8 % (36.0-66.0); RBC 2.92 mil/uL (4.50-6.00); RDW 26.1 % (10.5-14.5); WBC 3.3 thou/uL (4.0-11.0)
[2020-04-10 05:08] LABS: ALBUMIN 2.1 g/dL (3.4-5.0); CALCIUM 9.4 mg/dL (8.5-10.1); TOTAL BILIRUBIN 0.4 mg/dL (0.2-1.0); TOTAL PROTEIN 6.3 g/dL (6.4-8.2)
[2020-04-10 05:19] LABS: CREATININE 7.5 mg/dL (0.7-1.3); POTASSIUM 4.1 mmol/L (3.5-5.1)
[2020-04-10 05:30] LABS: ANISOCYTOSIS 3+; OVALOCYTES FEW; POLYCHROMASIA 1+
[2020-04-10 05:31] LABS: POIKILOCYTOSIS SLIGHT; SCHISTOCYTES RARE; TARGET CELLS OCCASIONAL; TEARDROPS OCCASIONAL
--- NOTE | 2020-04-10 06:00 | NUR ---
REMAINS INTUBATED AND SEDATED WITH PROPOFOL AT 40 MCG. FIO2 40 % O2 SAT 98 % UO 100 CC THIS SHIFT. POSSIBLE DIALYSIS TODAY. VSS BATHED. PROGRESSING TOWARD GOALS. WILL CONT TO MONITOR
--- NOTE | 2020-04-10 08:52 | NUR ---
ASSUMMED CARE FROM MANJIT VELIZ THE NIGHT NURSE AT 0700, ARIELLE REMAINS SEDATED ON PROPOFOL AT 60 MCG/KG/MIN. SEDATION OFF AT 0800, AFTER 45 MINS EYES ARE BLINKING AND GRIMCES TO ORAL SUCTIONING, BP AND HEART RATE UP. BLOOD GLUCOSE 78. PROPOFOL RESTARTED AT 5 MCG.
--- NOTE | 2020-04-10 09:00 | NUR ---
ASSUMMED CARE FROM MANJIT VELIZ THE NIGHT NURSE AT 0700. PATIENT PLACED ON SEDATION VACATION FROM 0800 TO 0850, WILL NOT FOLLOW ANY COMMANDS, GRIMCES WITH ORAL CARE. HEART RATE INCREASED TO 70 FROM THE LOWER 60'S AND BP INCREASED TO THE 160'S SYSTOLIC. UPPER EXTERMITIES ARE FLACCID. DR PENA ON THE UNIT AND INFORMED OF PATIENT STATUS.
--- NOTE | 2020-04-10 10:30 | NUR ---
, GARY CALLED IN AND UPDATED ON THE PATIENT'S STATUS AND POC. REASSURANCE GIVEN.
--- NOTE | 2020-04-10 11:30 | NUR ---
PATIENT PLACED ON HEMODIALYSIS BY THE DIALYSIS NURSE. TOLERATING WITHOUT INCIDENT. SEDATION REMAINS OFF.
--- NOTE | 2020-04-10 12:00 | NUR ---
HEMO-DIALYSIS IN PROGRESS. BLOOD GLUCOSE IS IN THE 70'S AND PROPOFOL IS OFF SINCE 909. DR HINTON ROUNDED ON PATIENT AND INFORMED OF BLOOD GLUCOSES. ORDERS RECEIVED. DR ABARCA INFORME OF FLUID ORDER, SUGGESTED TUBE FEEDINGS.
--- NOTE | 2020-04-10 14:00 | NUR ---
SPOKE WITH DR PENA CONCERNING PLACING PATIENT ON TUBE FEEDINGS HE IS STILL OBTUNDENT AND ON HEMODIALYSIS. ORDERS RECEIVED FOR TUBE FEEDING.
--- NOTE | 2020-04-10 15:00 | NUR ---
HEMO-DIALYSIS COMPLETED AND TUBE FEEDING STARTED.
--- NOTE | 2020-04-10 18:30 | NUR ---
PATIENT IS PROGRESSING TOWARD OUTCOME GOALS EVIDENT BY. BP STABLE AFTER DIALYSIS, GRIMISES WITH ORAL CARE AND MOVING RT LEG SPONTANOULY. REASSURANCE GIVEN TO THE PATIENT. STRONG COUGH. TUBE FEEDINGS STARTED.
[2020-04-11] VITALS (34 sets, daily range): BP systolic 105–174; BP diastolic 59–91
[2020-04-11 05:55] LABS: HEMATOCRIT 29.6 % (42.0-52.0); HEMOGLOBIN 9.1 gm/dL (14.0-18.0); MCH 26.8 pg (26.0-34.0); MCHC 30.8 g/dL (28.0-37.0); RBC 3.4 mil/uL (4.50-6.00); RDW 26.1 % (10.5-14.5); WBC 9.4 thou/uL (4.0-11.0)
--- NOTE | 2020-04-11 06:00 | NUR ---
REMAINS INTUBATED AND SEDATED WT PROPOFOL AT 25 MCG. FIO2 40 % O2 SAT 96 TO 98 % MOVES ARMS. RESTRAINED. SPIKED A TEMP AT 0600 102.5 AXI ALTERATION MANAGER NOTIFIED. LEFT ORDERS FOR TYLENOL LIQUID. NO BLOOD CULT ORDERED AT THIS TIME. 125 CC UO THIS SHIFT. POSSIBLE DIALYSIS TODAY. LUNGS CORASE IN UPPER LOBES. ENHANSED PRECAUTIONS FOR POSITIVE COVID 19. BATHED. WILL CONT TO MONITOR CLOSELY.
[2020-04-11 06:01] LABS: CALCIUM 9.1 mg/dL (8.5-10.1); POTASSIUM 3.9 mmol/L (3.5-5.1)
[2020-04-11 06:03] LABS: CREATININE 5.6 mg/dL (0.7-1.3)
--- NOTE | 2020-04-11 07:30 | EKG ---
[address] [place] [address] ELECTROCARDIOGRAM REPORT Name: RACHNA SOSAARTUR HAYNES Room #: 238- ADM IN M.R.#: [id number] Admission: 04/08/20 Attend Phys: Kendrick Martínez Discharge: Date of : 62 Report #: [id number] [facility] Test Date: 2020-04-09 Test Time: 10:25:33 Pat Name: ROWENA SOSA Department: Room: 238 P Gender: M Coater Carbon Paper: GAYLA : 1960 Requested By: Joshua Pineda Order Number: [id number] MD: Jonas Albarado Measurements Intervals [place] Rate: 99 P: 1 NE: 212 QRS: -7 QRSD: 81 T: 136 QT: 368 QTc: 473 Interpretive Statements Sinus rhythm Prolonged NE interval Inferior and anterior infarcts, old Nonspecific T abnormalities, lateral leads Compared to ECG 04/08/2020 10:26:16 No significant change was found Electronically Signed On 04-11-2020 7:29:51 PEST CONTROL PILOT by Jonas Albarado [email or web address] <ELECTRONICALLY SIGNED> By: Jonas Albarado MD, [facility] 04/11/20 0729 1025 1025 Jonsa Albarado MD, [facility] /EPI
--- NOTE | 2020-04-11 08:56 | NUR ---
Recommend TF goal rate of 40ml/hr. If no feeding pump, needs 2 cartons bolus per day
--- NOTE | 2020-04-11 11:04 | HC ---
[facility] [place] [address] CONSULTATION Name: ROWENA SOSA Room #: 238-P ADM IN M.R.#: [id number] Admission: 04/08/20 Attend Phys: Kendrick Martínez Discharge: Date of : 62 Report #: [id number] THIS REPORT FOR: cc: Roe Soria James A. DO Barry, Joseph W. MD ~ DATE OF SERVICE: 04/11/2020 INFECTIOUS DISEASE CONSULTATION ATTENDING PHYSICIAN: Dr. Martínez. REASON FOR EVALUATION: COVID-19 infection, complicated by pneumonitis and respiratory failure, extensive medical history including widespread vasculopathy, has chronic renal failure, on dialysis; recent cardiac arrest. HISTORY OF PRESENT ILLNESS: Chart reviewed, the patient examined. This is a 59-year-old gentleman with extensive medical history including diabetes mellitus, has been complicated by widespread vasculopathy, previous stroke, end-stage renal disease, on dialysis, has known coronary artery disease, previous GA with stenting. Actually, he was hospitalized earlier this month, underwent revision of right below-knee amputation stump due to nonhealing wound. It is notable he has left fpwpm-zbq-boad amputation as well. He was readmitted due to altered mental status, had missed dialysis ____ he had been intubated, now on mechanical ventilatory support. During the hospitalization, he had tested positive for COVID-19, also has ____ with polymicrobial appearance on Gram stain. He is critically ill and unresponsive at this point, although is not requiring pressor support. ALLERGIES: None known. MEDICATIONS: Currently include carvedilol, acetaminophen, heparin, ipratropium, albuterol inhaler, famotidine, propofol, alteplase, lorazepam, Haldol as needed. PAST MEDICAL HISTORY: Diabetes mellitus; previous CVA; end-stage renal disease, on dialysis; coronary artery disease with cardiomyopathy; hypertension; hyperlipidemia; sleep apnea; bilateral durhg-jvv-ezjn amputations; chronic anemia; depression; anxiety. SOCIAL HISTORY: Former smoker, occasional ethanol, occasional illicit drug use. FAMILY HISTORY: Noncontributory. [facility] [address] [place] [address] CONSULTATION Name: ROWENA SOSAWAYNE Room #: 238-P [facility] IN ..#: [id number] Admission: 04/08/20 Attend Phys: Kendrick Martínez Discharge: Date of : 62 Report #: [id number] REVIEW OF SYSTEMS: Not obtainable. PHYSICAL EXAMINATION: GENERAL: He appears chronically ill, undernourished, cgws-si-jfmcsqvx distress. He is maintained on ventilatory support. He is in a supine position. VITAL SIGNS: Temperature 102.5, pulse 95, respirations 19, blood pressure 149/79. SKIN: Warm, dry, no rashes. HEENT: Normocephalic. Extraocular muscles intact. ET, OG tube in place. NECK: Supple. LUNGS: Scattered coarse breath sounds. HEART: Borderline tachycardic. I do not appreciate any murmur. ABDOMEN: Distended, somewhat firm. No apparent peritoneal signs. GENITOURINARY AND RECTAL: Deferred. LABORATORY DATA: This morning, CBC: White count 9.4, H and H 9.1 and 29.6, platelets of 187. Electrolytes: Sodium 143, potassium 3.9, chloride 101, bicarbonate is 31, anion gap of 11, BUN and creatinine 31 and 5.6. Predialysis sputum culture pending. Gram stain showed few gram-negative rods, gram-positive cocci are many. Chest x-ray, left lower lobe pneumonitis. Blood cultures sterile thus far collected on the 8th. ASSESSMENT AND PLAN: COVID-19 infection, complicated by pneumonitis, respiratory failure, concerned about secondary bacterial pneumonia as well. We will initiate therapy with remdesivir, adjusted for renal failure as well as ivermectin. Go ahead and start corticosteroids, also antibacterial therapy, pending results of treatment. <ELECTRONICALLY SIGNED> By: David Carlson MD 04/11/20 1104 0844 0901 David Carlson MD /nt
--- NOTE | 2020-04-11 12:55 | NUR ---
ASSUMED CARE OF PT AT 0700 DR. LU AT BEDSIDE AT 0730, NO NEW ORDERS GIVEN SPOKE TO PT'S AT 1253 AND UPDATED PER POC
--- NOTE | 2020-04-11 13:30 | NUR ---
ASSESSMENT: CM REVIEWED CHART. PT IS IN ENHANCED ISOLATION DUE TO COVID 19 AND IS S/P CARDIAC ARREST ON THE VENT. PT HAS HX OF ESRD AND IS ON DIALYSIS T SCHEDULE AND WAS GETTING DIALYSIS AT [facility]. CM CONTACTED [facility] TO NOTIFY THEM OF PATIENTS ADMISSION (SPOKE WITH SUNITA) AND FAXED UPDATED CLINICAL PER REQUEST TO [phone]. HE REPORTS THEY ARE TAKING COVID POSITIVE PATIENTS AT THEIR CLINIC. CM SPOKE WITH PATIENTS TO GATHER MORE INFO. PT RECENTLY WAS AT [facility] AND LEFT AMA AND THEN LAST WEEK HAD A BKA REVISION AND WAS DISCHARGED HOME. PT COVID TEST FROM 04/08 IS POSITIVE AND HE REMAINS IN ENHANCED ISOLATION. REPORTS THEY LIVE IN AN APT WITH ONE STEP TO ENTER. SHE REPORTS PT HAS A PROSTHESIS, WALKER, WHEELCHAIR. PT HAS BEEN TO ACUTE REHAB, [facility], AND HAD [facility] IN THE PAST. CM DISCUSSED ROLE AND POSSIBLE NEED FOR POST ACUTE CARE IF PATIENT IS ABLE TO PROGRESS AND GET OFF THE VENITLATOR. STATES WE WILL CONTINUE TO SEE HOW PATIENT DOES AND SEE IF HE WOULD EVEN BE AGREEABLE. CM WILL CONTINUE TO FOLLOW TO ASSIST NEEDED.
[2020-04-11 22:06] LABS: HEP B SURFACE Ab(ANTI-HBS Reactive (()); HEPATITIS B SURFACE AG Negative (Negative)
[2020-04-12] VITALS (33 sets, daily range): BP systolic 93–132; BP diastolic 52–76
[2020-04-13] VITALS (66 sets, daily range): BP systolic 98–144; BP diastolic 51–72
[2020-04-13 04:00] LABS: BE(vivo) 5.2 mmol/L (-2 to +3); HCO3 29.6 mmol/L (22.0-26.0); PO2 69.2 mmHg (80.0-100.0); pH 7.456 (7.360-7.450); sO2 94.6 % (92.0-98.0)
[2020-04-13 06:06] LABS: ABSOLUTE NEUTROPHILS 12.1 thou/uL (1.4-8.2); HEMATOCRIT 27.7 % (42.0-52.0); HEMOGLOBIN 8.6 gm/dL (14.0-18.0); LYMPHOCYTES 2.4 % (24.0-44.0); MCH 26.8 pg (26.0-34.0); MCHC 31.2 g/dL (28.0-37.0); MONOCYTES 6.3 % (1.0-8.0); PLATELET COUNT 147 thou/uL (150-400); POLYS 91.3 % (36.0-66.0); RBC 3.22 mil/uL (4.50-6.00); RDW 25.3 % (10.5-14.5); WBC 13.2 thou/uL (4.0-11.0)
[2020-04-13 06:43] LABS: ALBUMIN 1.9 g/dL (3.4-5.0); CALCIUM 9.6 mg/dL (8.5-10.1); CREATININE 5.3 mg/dL (0.7-1.3); POTASSIUM 4.7 mmol/L (3.5-5.1); TOTAL BILIRUBIN 0.4 mg/dL (0.2-1.0); TOTAL PROTEIN 5.7 g/dL (6.4-8.2)
--- NOTE | 2020-04-13 12:19 | NUR ---
PATIENT WAS TRIALED TODAY AT 8/5 40%. HE WAS ABLE TO TRIAL FOR 20 MINUTES BUT HIS RR WAS 31 AND VT WAS LESS THAN 300. RSBI WAS 104 AND HIS NIF WAS -7.6 HE WAS TURNED BACK TO HIS PREVIOUS SETTINGS. NURSING AND THE PHYSICIAN WERE BOTH NOTIFIED.
--- NOTE | 2020-04-13 18:39 | NUR ---
PT NOT PROGRESSING TOWARDS DISCHARGE, WAS SEEN BY . SPONTANEOUS BREATHING TRIAL WAS DONE, PER RT PT DID NOT TOLERATE, UNABLE TO COME OFF WITH GIVEN VENT SETTING, RN ATTEMPTED TO TITRATE PROPOFOL GTT DOWN TO ACCOMODATE, PT DID NOT TOLERATE SEDATION DECREASE, BEGAN COUGHING AND MOVING EXTREMETIES MORE FREQUENTLY, APPEARED AGIGTATED/RESTLESS, PROPOFOL AT 40GTT PT HAS LESS MOVEMENT AND VISIBLY MORE COMFORTABLE. 0800 CALLED TO RETREIVE UPDATE, RN PROVIDED EVENINGS UPDATE WELL PLAN FOR SBT TODAY. 1200 CALLED AGAIN, RN INFORMED COVID POSITIVE RESULT WELL FAILURE IN SBT, ASKED ABOUT PT'S PROGNOSIS OF COMING OFF THE VENT, RN DEFERRED TO MD, STATING RN IS NOT IN SCOPE TO DISCUSS SUCH MATTERS. LET PT'S KNOW TO CALL WHENEVER NEEDED AND RN WILL CALL FOR UPDATE. LASIX GIVEN TODAY, SILL OLIGURIC ONLY 30CC. INCREASING FACIAL EDEMA. R BKA DSG CHANGE DONE, BLOODY DRAINAGE NO SEROUS FLUID
[2020-04-14] VITALS (39 sets, daily range): BP systolic 90–152; BP diastolic 47–84
[2020-04-14 05:00] LABS: BE(vivo) 4.4 mmol/L (-2 to +3); HCO3 29.1 mmol/L (22.0-26.0); PCO2 44.4 mmHg (35.0-45.0); PO2 73.1 mmHg (80.0-100.0); pH 7.435 (7.360-7.450); sO2 95.1 % (92.0-98.0)
[2020-04-14 05:58] LABS: HEMATOCRIT 28.6 % (42.0-52.0); HEMOGLOBIN 8.9 gm/dL (14.0-18.0); MCH 26.9 pg (26.0-34.0); MCHC 31.1 g/dL (28.0-37.0); MCV 86.4 fL (80.0-100.0); PLATELET COUNT 135 thou/uL (150-400); RBC 3.31 mil/uL (4.50-6.00); RDW 25.4 % (10.5-14.5); WBC 8.8 thou/uL (4.0-11.0)
[2020-04-14 09:26] LABS: ABSOLUTE NEUTROPHILS 8.4 thou/uL (1.4-8.2)
[2020-04-14 09:27] LABS: PLATELET ESTIMATE NORMAL
[2020-04-14 09:28] LABS: ANISOCYTOSIS 2+; POIKILOCYTOSIS 2+
--- NOTE | 2020-04-14 10:17 | NUR ---
Nutrition: High residuals 225-400 mL. REC start reglan. Due to propofol start, new goal rate of tube feeds suggested at 30 mL/hr.
[2020-04-14 10:19] LABS: DIRECT BILIRUBIN 0.2 mg/dL (<0.1-0.2); POTASSIUM 4.7 mmol/L (3.5-5.1); TOTAL BILIRUBIN 0.5 mg/dL (0.2-1.0); TOTAL PROTEIN 6.5 g/dL (6.4-8.2)
[2020-04-14 10:20] LABS: CREATININE 6.5 mg/dL (0.7-1.3)
--- NOTE | 2020-04-14 10:30 | EKG ---
[address] [address] ELECTROCARDIOGRAM REPORT Name: SHEILAROWENA Room #: 238- ADM IN M.R.#: [id number] Admission: 04/08/20 Attend Phys: Kendrick Martínez Discharge: Date of : 62 Report #: [id number] [facility] Test Date: 2020-04-14 Test Time: 10:19:08 Pat Name: ROWENA SOSA Department: Room: 238 P Gender: M Welder Experimental: ALESHIA : 1960 Requested By: Kendrick Martínez Order Number: [id number] MD: Minor Najera Measurements Intervals [place] Rate: 65 P: 39 GA: 205 QRS: -10 QRSD: 89 T: 136 QT: 397 QTc: 413 Interpretive Statements Sinus rhythm Borderline prolonged GA interval Inferior infarct, old Anterior infarct, old Lateral leads are also involved Compared to ECG 04/09/2020 10:25:33 No significant change T-wave abnormality no longer present Electronically Signed On 04-14-2020 10:30:20 SYSTEMS PROGRAMMER ANALYST by Minor Najera [email or web address] <ELECTRONICALLY SIGNED> By: Mnior Najera MD, FACC 04/14/20 1030 1019 1019 Minor Najera MD, FAC /EPI
--- NOTE | 2020-04-14 14:18 | NUR ---
CPAP TRIAL ATTEMPTED, LOW TIDAL VOLUMES.
--- NOTE | 2020-04-14 15:30 | NUR ---
ATTEMPTED CPAP TRAIL AGAIN, MAINTAING TIDAL VOLUMES BUT ABOUT 30 MINUTES INTO TRIAL NOTED RHYTHM CHANGE. EKG AND RT TO SWITCH VENT BACK TO ASSIST CONTROL. PROPOFOL RESTARTED.
--- NOTE | 2020-04-14 16:39 | NUR ---
RHYTHM CHANGES COMUNICATED TO DR. PENA AND DR. HINTON.
--- NOTE | 2020-04-14 19:10 | NUR ---
NOTED INCREASINGLY WIDE COMPLEX RHYTHM. AFTER COMMUNICATED TO DR. HINTON AND EKG SENT, CARDIOLOGY PAGED. SPOKE WITH DR. ABDUL AND STATED HE WOULD COME SEE THE PATIENT. DR. ABDUL ON UNIT AND PATIENT WENT INTO A VENTRICULAR TACHYCARDIC RHYTHM. ORDERS FOR BOLUS OF AMIO AND AMIO GTT. WHILE WAITING TO RECIEVE MEDICATION FROM PHARMACY PATIENT RHYTHM TURNED INTO VFIB, DR. MEDINA STILL ON UNIT. CODE BLUE ACTIVATED. SEE CODE BLUE REPORT SHEET FOR SPECIFIC EVENTS. UNABLE TO COVERT FROM VFIB RHYTHM AFTER 20 MINUTES OF COMBINED CPR, MEDICATION ADMINISTRATION, AND MULTIPLE SHOCKS. DR. HINTON PRESENT RUNNING CODE. CODE CALLED AND TIME OF NOTED [id number]. DR. RASHEED SPOKE WITH ABOUT EVENT OCCURANCE.
--- NOTE | 2020-04-14 19:52 | NUR ---
SPOKE WITH GARY X3 TODAY, 2 TIMES FOR STATUS UPDATES THROUGH OUT THE DAY. EXPLAINED THAT PATIENT REMAINED CRITICAL ON VENT. PATIENT TO HAVE DIALYSIS THIS EVENING. EXPLAINED SHORT RUN OF VTACH DURING CPAP TRIAL AND PATIENT NOT TOLERATING BEING OFF SEDATION. ALL QUESITONS AND CONCERNS ANSWERED. SPOKE WITH AND DR. HINTON INITATED PHONE CALL IN REGARDS TO CODE BLUE EVENT. STATES SHE HAD NO FURTHER QUESTIONS AT THAT TIME.
--- NOTE | 2020-04-15 07:20 | EKG ---
[place] [address] [facility] [place] [address] ELECTROCARDIOGRAM REPORT Name: RACHNA SOSAARTUR HAYNES Room #: 238-[facility] IN M.R.#: [id number] Admission: 04/08/20 Attend Phys: Kendrick Martínez Discharge: 04/14/20 Date of : 62 Report #: [id number] [facility] Test Date: 2020-04-14 Test Time: 15:37:50 Pat Name: ROWENA SOSA Department: Room: 238 Gender: M Marine Gear Keeper: Jordan PETERSEN : 1960 Requested By: Kendrick Martínez Order Number: [id number] MD: Minor Najera Measurements Intervals [place] Rate: 109 P: 60 VA: 234 QRS: 22 QRSD: 146 T: -8 QT: 443 QTc: 597 Interpretive Statements Sinus tachycardia/suspect PAFIB w/ aberrancy Prolonged VA interval Left atrial enlargement Anterior infarct, age indeterminate Lateral leads are also involved Compared to ECG 04/14/2020 10:19:08 Ventricular tachycardia now present Atrial abnormality now present Right bundle-branch block now present Sinus rhythm no longer present Myocardial infarct finding still present Electronically Signed On 04-15-2020 7:20:13 PRESCRIPTIONIST by Minor Najera [email or web address] <ELECTRONICALLY SIGNED> By: Minor Najera MD, [facility] 04/15/20 0720 1537 1537 Minor Najera MD, [facility] /EPI
== END 2020-04-14 18:30 | DRG 870 ==
LOC: ER 09:55 → ICU 12:20 → EROBS 12:20 → 4W 16:21 → 3W 23:37 → ICU 04-09 07:54
PROVIDERS: Emergency Medicine; Hospitalist; Nurse Practitioner Family; Pediatrics; Specialist; ADMIT Hospitalist; ATTEND Hospitalist
PROC: 5A12012 Performance of Cardiac Output, Single, Manual (ICD-10-PCS; principal; 2020-04-09)
PROC: 0BH17EZ Insertion of Endotracheal Airway into Trachea, Via Natural or Artificial Opening (ICD-10-PCS; principal; 2020-04-09)
PROC: 02HV33Z Insertion of Infusion Device into Superior Vena Cava, Percutaneous Approach (ICD-10-PCS; principal; 2020-04-09)
PROC: 5A1955Z Respiratory Ventilation, Greater than 96 Consecutive Hours (ICD-10-PCS; principal; 2020-04-09)
PROC: B548ZZA Ultrasonography of Superior Vena Cava, Guidance (ICD-10-PCS; principal; 2020-04-09)
PROC: XW033E5 Introduction of Remdesivir Anti-infective into Peripheral Vein, Percutaneous Approach, New Technology Group 5 (ICD-10-PCS; 2020-04-11)
PROC: 5A1D70Z Performance of Urinary Filtration, Intermittent, Less than 6 Hours Per Day (ICD-10-PCS; 2020-04-14)
DX: A41.9 Sepsis, unspecified organism (principal); U07.1 COVID-19; E43 Unspecified severe protein-calorie malnutrition; N18.6 End stage renal disease; J12.82 Pneumonia due to coronavirus disease 2019; I50.23 Acute on chronic systolic (congestive) heart failure; J96.21 Acute and chronic respiratory failure with hypoxia; G93.40 Encephalopathy, unspecified; I42.9 Cardiomyopathy, unspecified; F11.20 Opioid dependence, uncomplicated; I13.2 Hypertensive heart and chronic kidney disease with heart failure and with stage 5 chronic kidney disease, or end stage renal disease; F32.9 Major depressive disorder, single episode, unspecified; E78.5 Hyperlipidemia, unspecified; F41.9 Anxiety disorder, unspecified; I46.9 Cardiac arrest, cause unspecified; G47.33 Obstructive sleep apnea (adult) (pediatric); E11.51 Type 2 diabetes mellitus with diabetic peripheral angiopathy without gangrene; I95.9 Hypotension, unspecified; F10.10 Alcohol abuse, uncomplicated; I49.01 Ventricular fibrillation; E11.22 Type 2 diabetes mellitus with diabetic chronic kidney disease; I25.10 Atherosclerotic heart disease of native coronary artery without angina pectoris; Z91.14 Patient's other noncompliance with medication regimen; Z86.73 Personal history of transient ischemic attack (TIA), and cerebral infarction without residual deficits; I25.2 Old myocardial infarction; Z89.212 Acquired absence of left upper limb below elbow; Z89.512 Acquired absence of left leg below knee; Z89.021 Acquired absence of right finger(s); Z95.5 Presence of coronary angioplasty implant and graft; Z99.2 Dependence on renal dialysis; Z87.891 Personal history of nicotine dependence; Z91.15 Patient's noncompliance with renal dialysis; Z71.6 Tobacco abuse counseling
CPT/HCPCS: 10078; 10879; 32100